=== PATIENT | male | born 1945 | race Caucasian/White ===

== ENCOUNTER 2018-11-29 00:53 | Outpatient (CLI) | payer OTHER, SELFPAY ==
[2018-11-29 11:43] LABS: Iron 86 ug/dL (50-175)
[2018-11-29 11:51] LABS: HCT 50.1 % (40.0-50.0); HGB 16.9 g/dL (13.5-17.5); Mean Corp. HGB Concentration 33.7 g/dL (32.0-36.0); Mean Corpuscular Hemoglobin 29.5 pg (27.0-33.0); Mean Corpuscular Volume 87.4 fL (80-95); Mean Platelet Volume 9.9 fL (8.0-11.0); Platelet Count 197 x1000/uL (130-400); RBC 5.73 m/cumm (4.50-6.00); RBC Distribution Width 13.7 % (11.8-14.1); White Blood Cell Count 4.48 k/cumm (4.4-10.8)
[2018-11-29 11:58] LABS: ALT 42 U/L (12-78); AST 20 U/L (15-37); Albumin 3.7 g/dL (3.4-5.0); Alkaline Phosphatase 68 U/L (46-116); Anion Gap 7.6 mmol/L (3-11); BUN 16 mg/dL (7-18); Bilirubin, Total 0.7 mg/dL (0.2-1.0); CO2 29.4 mmol/L (21.0-32.0); CREATININE 1.24 mg/dL (0.70-1.30); Calcium 9.5 mg/dL (8.5-10.1); Chloride 104 mmol/L (98-107); Cholesterol 198 mg/dL (50-200); Estimated GFR 57.47 (mL/min/1.73m2); Ferritin 54 ng/mL (8-388); Glucose 94 mg/dL (70-100); HDL Cholesterol 53 mg/dL (40-60); LDL CHOLESTEROL 128 mg/dL (<100); Potassium 4.3 mmol/L (3.5-5.1); Sodium 141 mmol/L (136-145); Total Protein 7.1 g/dL (6.4-8.2); Triglyceride 87 mg/dL (30-150)
== END 2018-11-29 01:13 ==
PROVIDERS: PCP Family Medicine; Visit Provider Family Medicine
DX: E61.1 Iron deficiency (principal); I10 Essential (primary) hypertension; E78.5 Hyperlipidemia, unspecified
CPT/HCPCS: 36415; 80053; 80061; 83721; 85027; 82728; 83540

== ENCOUNTER 2019-05-26 08:55 | Outpatient (CLI) | payer OTHER, SELFPAY ==
[2019-05-26 11:08] LABS: HCT 43.4 % (40.0-50.0); HGB 14.1 g/dL (13.5-17.5); Mean Corp. HGB Concentration 32.5 g/dL (32.0-36.0); Mean Corpuscular Hemoglobin 26.2 pg (27.0-33.0); Mean Corpuscular Volume 80.5 fL (80-95); Mean Platelet Volume 9.5 fL (8.0-11.0); Platelet Count 260 x1000/uL (130-400); RBC 5.39 m/cumm (4.50-6.00); White Blood Cell Count 4.59 k/cumm (4.4-10.8)
[2019-05-26 12:40] LABS: Iron 64 ug/dL (50-175)
== END 2019-05-26 09:15 ==
PROVIDERS: PCP Family Medicine; Visit Provider Family Medicine
DX: I10 Essential (primary) hypertension (principal); E61.1 Iron deficiency
CPT/HCPCS: 36415; 85027; 83540

== ENCOUNTER 2020-06-21 20:54 | Outpatient (REF) | payer OTHER, SELFPAY ==
[2020-06-21 21:44] LABS: ALT 27 U/L (16-63); AST 18 U/L (15-37); Albumin 3.9 g/dL (3.4-5.0); Alkaline Phosphatase 68 U/L (46-116); Anion Gap 10.3 mmol/L (3-11); BUN 24 mg/dL (7-18); Bilirubin, Total 0.3 mg/dL (0.2-1.0); CO2 23.7 mmol/L (21.0-32.0); Calcium 9.1 mg/dL (8.5-10.1); Calculated LDL 111 mg/dL (<100); Chloride 104 mmol/L (98-107); Cholesterol 181 mg/dL (<200); Glucose 88 mg/dL (74-106); HDL Cholesterol 55 mg/dL (40-60); Potassium 4.5 mmol/L (3.5-5.1); Sodium 138 mmol/L (136-145); Total Protein 7.2 g/dL (6.4-8.2); Triglyceride 79 mg/dL (<150)
[2020-06-23 09:31] LABS: PSA, Diagnostic 0.3 ng/mL (0.0-6.5)
== END 2020-06-21 21:14 ==
LOC: LBN 20:54
PROVIDERS: PCP Family Medicine; Visit Provider Family Medicine
DX: E78.5 Hyperlipidemia, unspecified (principal); I10 Essential (primary) hypertension; N40.0 Benign prostatic hyperplasia without lower urinary tract symptoms
CPT/HCPCS: 80053; 80061; 84153

== ENCOUNTER 2020-12-18 10:49 | Emergency (ER) | payer OTHER, SELFPAY ==
[2020-12-18 10:54] VITALS: BP 150/85; PULSE 68; RESP 18; TEMP 36.7; O2SAT 98
--- NOTE | 2020-12-18 11:08 | ED.GENADUL_ITS ---
Discharge Plan Disposition Patient Disposition: HOME Condition: Stable Discharge Details Clinical Impression: Degenerative arthritis of lumbar spine, Lumbosacral strain Primary Care Provider: Donna Mclaughlin ED Provider: Patricia Sanders Home Meds and New Rx's Prescriptions: New cyclobenzaprine 10 mg tablet 10 mg PO TID PRN (Reason: muscle spasm) Qty: 10 RF: 0 lidocaine 5 % adhesive patch,medicated 1 patch topical DAILY PRNQty: 15 RF: 0 Continued red yeast rice 600 MG capsule 1 cap PO DAILY RF: 0 Saw Palatine Extract (w-zinc) 1 EACH capsule 1 ea PO DAILY RF: 0 Glucos Chond Cplx Advanced 1 EACH tablet 1 ea PO DAILY RF: 0 sildenafil [Viagra] 100 MG tablet 100 mg PO DAILY Qty: 24 RF: 12 lisinopril 20 mg tablet 20 mg PO DAILY Qty: 90 RF: 12 omeprazole 40 mg capsule,delayed release(DR/EC) 40 mg PO DAILY Qty: 90 RF: 11 pravastatin [Pravachol] 40 mg tablet 40 mg PO DAILY Qty: 90 RF: 4 Discharge Instructions Instructions: Low Back Strain (ED) Additional Instructions: Follow up with primary care provider in 3-5 days. Return to ED sooner if any worsening or concerns. Increase oral fluids. Please take Tylenol or Ibuprofen with food every 4-6 hours as needed for pain and swelling. Alternate ice and heat, you may try lidocaine patches [id number] as needed. Take the muscle relaxer as directed. Try massage and or chiropractor. Referrals: Donna Mclaughlin MD, [place] [Primary Care Provider] - Medical Decision Making 75-year-old male presents to the ED with left sided lumbar pain. Patient states that he was shoveling some snow, supervisor opening and picking a bucket and twisted began with increased left-sided flank pain. He denies any problems urinating or burning with urination, no numbness or tingling no radiation of pain. Pain increases with standing. No midline T or L-spine tenderness with palpation, he does have some left-sided paraspinous muscle spasm and tenderness. No loss of bowel or bladder control no saddle anesthesia. FINDINGS: Bones/joints: Degenerative arthritis in the lumbar spine with narrowing of lumbar interspaces and endplate osteophyte formation. Degenerative arthritis in the lower lumbar facets. Slight anterolisthesis of L4 on L5. Slight retrolisthesis of L2 on L3. Soft tissues: Benign-appearing calcifications projecting over the left side of the abdomen. IMPRESSION: 1. Degenerative arthritis in the lumbar spine. Patient received Flexeril 10 mg p.o. while here in department and 5% lidocaine patch which he states improved his pain. Discussed x-ray results and urinalysis, verbalized understanding. Instructed to follow-up with PCP patient states he has an upcoming appoint but on Sunday and an upcoming chiropractic appointment following up thereafter. Encouraged to keep appointments. Discuss ed strict return instructions, verbalized understanding. Patient was given prescription for lidocaine patch and Flexeril. HPI General Mode of arrival: ambulatory . Date/Time Provider Initiated Documentation: 12/18/20 10:52 . Limitations to Documentation: no limitations . Information obtained by: patient . HPI Narrative: 75-year-old male presents to the ED with left sided lumbar pain. Patient states that he was shoveling some snow, supervisor opening and picking a bucket and twisted began with increased left-sided flank pain. He denies any problems urinating or burning with urination, no numbness or tingling no radiation of pain. Pain increases with standing. No midline T or L-spine tenderness with palpation, he does have some left-sided paraspinous muscle spasm and tenderness. No loss of bowel or bladder control no saddle anesthesia. Related Data Home Medications Medication Instructions Recorded Confirmed Glucos Chond Cplx Advanced 1 ea PO DAILY 04/01/13 12/18/20 Saw Palatine Extract (w-zinc) 1 ea PO DAILY 04/01/13 12/18/20 red yeast rice 1 cap PO DAILY 04/01/13 12/18/20 sildenafil [Viagra] 100 mg PO DAILY #24 tab-cap 11/05/17 12/18/20 lisinopril 20 mg tablet 20 mg PO DAILY #90 tab-cap 02/09/20 12/18/20 omeprazole 40 mg capsule,delayed 40 mg PO DAILY #90 tab-cap 02/09/20 12/18/20 release pravastatin 40 mg tablet 40 mg PO DAILY #90 tab-cap 02/09/20 12/18/20 cyclobenzaprine 10 mg PO TID PRN #10 tab 12/18/20 lidocaine 1 patch TOPICAL DAILY PRN #15 ea 12/18/20 Previous Rx's Medication Instructions Recorded sildenafil [Viagra] 100 mg PO DAILY #24 tab-cap 11/05/17 lisinopril 20 mg tablet 20 mg PO DAILY #90 tab-cap 02/09/20 omeprazole 40 mg capsule,delayed 40 mg PO DAILY #90 tab-cap 02/09/20 release pravastatin 40 mg tablet 40 mg PO DAILY #90 tab-cap 02/09/20 cyclobenzaprine 10 mg PO TID PRN #10 tab 12/18/20 lidocaine 1 patch TOPICAL DAILY PRN #15 ea 12/18/20 Allergies Allergy/AdvReac Type Severity Reaction Status Date / Time No Known Allergies Allergy Unverified 06/21/20 09:48 General Stated Complaint: Nk/Back Pain KODY: 4 Review of Systems Narrative: Constitutional: Negative for weight loss, alert and oriented, well groomed, normal body habitus, appears comfortable. HEENT: Denies trauma, headaches, blurry vision, nasal discharge, sore throat, trouble swallowing. Chest: Denies chest pain, palpitations, irregular rhythm, hypertension. Respiratory: Denies Shortness of breath, cough, hemoptysis. GI: Denies abdominal pain, nausea, vomiting, diarrhea, constipation. : Denies dysuria, hematuria, flank pain, rectal bleeding. Neuro: Denies dizziness, blurry vision, weakness, syncope, headache or facial numbness. Hematologic: Denies easy bruising, intolerance to heat or cold, hair loss. 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 colonoscopy; 01/22- heme + stool; NEG. STOOL CARDS (3) RETURNED; 01/2008-heme + stool;neg. stool cards Occult blood in stools Peptic ulcer 04/06/14 in his 's EGD-neg 08/31 Peptic ulcer (04/06/14) Smoker quit in 1979 Smoker Surgical History Arthroplasty 03/06/16; RIGHT KNEE; [facility] Arthroscopy (~1995) LEFT WRIST H/O arthroscopy 11/19/95 left wrist H/O knee surgery x 3 History of arthroscopy History of knee surgery KNEE REPAIR X 3 Replacement of total knee joint (04/22/13) [facility]; LEFT KNEE S/P total knee replacement 11/19/12 [facility]; left knee-2012; [facility]-right knee 02/2016 S/P vasectomy 04/19/15 Status post total knee replacement Status post vasectomy (04/19/15) Vasectomy Family History Mother , AGE 90 Dementia Glaucoma Father , AGE 90 Essential hypertension Hyperlipidemia DJD (degenerative joint disease) HIP Liver failure DIALYSIS Alcohol abuse Maternal Grandmother Cancer Paternal Grandfather No problems noted. Paternal Grandmother No problems noted. Son No problems noted. Son No problems noted. Son No problems noted. Social History Smoking/Tobacco Use Status: Former Tobacco Use Quit Date: 11/19/79 Tobacco: How many years used: 16 Smoking risk assessment performed?: Yes Alcohol Intake: current Alcohol Intake frequency: 0-2 drinks per day Alcohol type: beer, wine and hard liquor Drug use: Rarely Substance use type: marijuana Caregiver/Support person: No Household members: spouse Communication Needs: Hard of Hearing Pets and animals: Yes Pets and animals: dog(s), horse(s) and farm animals Sexually active: Yes Do you think of yourself as: straight/heterosexual What is your relationship status?: How often do you talk on the phone with friends or family?: three or more times per week How often do you get together with friends or relatives?: twice per week Panel score (0-1 are the most socially isolated patients): 2 What type of physical activity do you participate in: bicycling and other Details: Golf, [place] Duration: 15-30 minutes/day Frequency: 3-4 times per week Riana/Synagogue: [employer] Special riana needs: No Seatbelt use: always Helmet use: Yes Do you feel safe at home: Yes Do you feel safe in your relationship?: Yes Exam Narrative Exam Narrative: Constitutional: Alert and oriented x3. Appears stated age. Normal body habitus. Head: Normocephalic, no trauma. Eyes: Pupils PERRLA, Red reflex noted, EOM's intact. Eyelids symmetrical without lesions, discharge, or swelling. ENT: Bilateral TM's WNL, External ear normal to inspection, no mastoid TTP, swelling, or erythema, Nasal turbinates WNL, no nasal discharge. Normal dentition, Posterior pharynx WNL, no exudate. Chest: RRR, Normal S1, S2, distal pulses intact. Resp: Lungs clear to auscultation bilaterally, no wheezes, rales, or rhonchi. Abdomen: Soft, nontender to palpation all four quadrants. Musculoskeletal: Normal gait, 5/5 strength to all four extremities. Negative straight leg test, no midline C, T, L-spine tenderness no crepitus no step-off noted with palpation. Does have some left paraspinous tenderness and spasm of muscle. No CVA tenderness. Skin: No suspicious rashes or lesions. Capillary refill less than 2 sec. Neurologic: Cranial nerves II-XII intact. Alert and oriented x 3. DTR's intact. Hematologic/Lymphatic: No ecchymosis, no lymphadenopathy. Course Vital Signs Vital signs: Vital Signs Temperature 36.7 C 12/18/20 10:54 Pulse 68 12/18/20 10:54 Respiratory Rate 18 12/18/20 10:54 Blood Pressure 150/85 H 12/18/20 10:54 Pulse Oximetry 98 12/18/20 10:54 Temperature 36.7 C 12/18/20 10:54 Temperature Source Skin 12/18/20 10:54 Pulse 68 12/18/20 10:54 Respiratory Rate 18 12/18/20 10:54 Respiratory Effort Non-Labored 12/18/20 11:02 Blood Pressure 150/85 H 12/18/20 10:54 Blood Pressure Position Sitting 12/18/20 10:54 Pulse Oximetry 98 12/18/20 10:54 Oxygen Delivery Method Room Air 12/18/20 10:54 Oxygen Flow Rate 0 12/18/20 10:54 Pain Level 10 12/18/20 11:02
[2020-12-18] MEDS: Cyclobenzaprine 10 MG TAB PO (11:16)
[2020-12-18 11:23] LABS: Bilirubin Negative (Negative); Blood Negative (Negative); Clarity Clear (Clear); Glucose Negative (Negative); Ketones Negative (Negative); Leukocyte Esterase Negative (Negative); Nitrite Negative (Negative); Specific Gravity >= 1.030 (1.005-1.025); Urobilinogen 0.2 EU/dL (Up TO 0.2); pH 5.5 (5-8)
--- NOTE | 2020-12-18 11:30 | DI.RAD_ITS ---
EXAM: XR LUMBAR SPINE COMPLETE CLINICAL HISTORY: Back pain. TECHNIQUE: 2D digital imaging was performed. COMPARISON: No exams were available for comparison FINDINGS: Is no evidence of fracture, spondylolysis or spondylolisthesis. There are degenerative disc changes and facet degenerative changes. There is no significant scoliosis. The hip joints and SI joints are unremarkable. IMPRESSION: Degenerative disc and facet joint changes. DATA REPOSITORY: RADIATION DOSE DELIVERED:
[2020-12-18] MEDS: Lidocaine 5% Patch 1 PATCH TP (11:40)
--- NOTE | 2020-12-18 12:03 | DI.VRAD_ITS ---
PROCEDURE INFORMATION: Exam: XR Lumbosacral Spine, 4 or 5 Views Exam date and time: 12/18/2020 11:55 AM Age: 75 years old Clinical indication: Other: Lbp TECHNIQUE: Imaging protocol: XR of the lumbosacral spine, 4 or 5 views. COMPARISON: No relevant prior studies available. FINDINGS: Bones/joints: Degenerative arthritis in the lumbar spine with narrowing of lumbar interspaces and endplate osteophyte formation. Degenerative arthritis in the lower lumbar facets. Slight anterolisthesis of L4 on L5. Slight retrolisthesis of L2 on L3. Soft tissues: Benign-appearing calcifications projecting over the left side of the abdomen. IMPRESSION: 1. Degenerative arthritis in the lumbar spine. Dictated and Authenticated by: Nadege Case MD. Ordering:ALIZE Gomez MD
== END 2020-12-18 12:30 | disposition home or self-care (01) ==
PROVIDERS: Emergency Provider Registered Nurse Emergency; PCP Family Medicine
DX: S39.012A Strain of muscle, fascia and tendon of lower back, initial encounter (principal); X50.0XXA Overexertion from strenuous movement or load, initial encounter; M47.896 Other spondylosis, lumbar region
CPT/HCPCS: 99283; 72110; 81003

== ENCOUNTER 2021-08-09 20:44 | Outpatient (REF) | payer OTHER, SELFPAY ==
[2021-08-09 22:44] LABS: ALT 35 U/L (16-63); AST 22 U/L (15-37); Albumin 4.4 g/dL (3.4-5.0); Alkaline Phosphatase 72 U/L (46-116); Anion Gap 8.9 mmol/L (3-11); BUN 18 mg/dL (7-18); Bilirubin, Total 0.5 mg/dL (0.2-1.0); CO2 29.1 mmol/L (21.0-32.0); CREATININE 1.2 mg/dL (0.70-1.30); Calcium 9.3 mg/dL (8.5-10.1); Calculated LDL 133 mg/dL (<100); Chloride 102 mmol/L (98-107); Cholesterol 221 mg/dL (<200); Estimated GFR 59.35 (mL/min/1.73m2); Glucose 114 mg/dL (74-106); HDL Cholesterol 56 mg/dL (40-60); Potassium 4.5 mmol/L (3.5-5.1); Sodium 140 mmol/L (136-145); Total Protein 8.1 g/dL (6.4-8.2); Triglyceride 164 mg/dL (<150)
[2021-08-10 17:04] LABS: PSA, Diagnostic 0.6 ng/mL (0.0-6.5)
== END 2021-08-09 20:45 | disposition home or self-care (01) ==
LOC: LBN 20:44
PROVIDERS: PCP Family Medicine; Visit Provider Family Medicine
DX: I10 Essential (primary) hypertension (principal); E78.5 Hyperlipidemia, unspecified; N40.0 Benign prostatic hyperplasia without lower urinary tract symptoms
CPT/HCPCS: 80053; 80061; 84153

== ENCOUNTER 2022-03-21 01:54 | Outpatient (CLI) | payer MEDICARE, SELFPAY ==
[2022-03-21 12:23] LABS: HCT 39.6 % (40.0-50.0); HGB 11.3 g/dL (13.5-17.5); MCHC 28.5 % (32.0-36.0); MCV 70 fL (80-95); MPV 9.3 fL (8.0-11.0); Platelet Count 295 10^3/uL (130-400); RBC 5.65 10^6/uL (4.36-5.78); RDW 21.4 % (11.8-14.1); RDW-SD 52.1 fL; WBC 4.27 10^3/uL (4.4-10.8)
[2022-03-21 12:31] LABS: Iron 22 ug/dL (65-175)
[2022-03-21 12:43] LABS: Ferritin 9 ng/mL (26-388)
== END 2022-03-21 01:55 | disposition home or self-care (01) ==
LOC: LOS 01:54
PROVIDERS: PCP Family Medicine; Visit Provider Family Medicine
DX: D64.9 Anemia, unspecified (principal); E61.1 Iron deficiency
CPT/HCPCS: 36415; 85027; 82728; 83540

== ENCOUNTER 2022-04-21 06:08 | Emergency (ER) | payer MEDICARE, SELFPAY ==
--- NOTE | 2022-04-21 06:00 | DI.CT_ITS ---
Exam(s) CT RENAL COLIC WO EXAM: CT RENAL COLIC WO CLINICAL HISTORY: left flank pain, r/o stone. TECHNIQUE: Imaging Protocol: Axial computed tomography images with coronal and sagittal reformatted images were created and reviewed. COMPARISON: No prior for comparison. FINDINGS: ABDOMEN: Lung Bases: There is dependent atelectasis. There is a 6.3 mm noncalcified pulmonary nodule in the r ight lower lobe. Liver: Normal density. There is a 6.7 mm cyst in the right lobe of the liver. Gallbladder and biliary tract: No radiodense calculus or biliary ductal dilation. Pancreas: Normal density, no abnormal calcifications or inflammatory process. Spleen: Calcified granuloma are seen in the spleen. Kidneys: Normal size, contour and axis.There is bilateral nephrolithiasis. There is a 7 mm stone at the left ureteropelvic junction causing moderate hydronephrosis. Right renal cysts are present. The largest is in the superior pole and measures 3.3 cm. Adrenal glands: No mass is seen. Lymph nodes: Within normal limits. Abdominal Aorta: Abdominal portion non-dilated. Atherosclerosis is present. PELVIS: Bladder:Symmetric distention, no gross wall thickening. Bowel: No obstruction or bowel wall thickening. No evidence of appendicitis. Peritoneal cavity: No ascites, collection or mesenteric inflammatory response. No free air. Reproductive organs: Mild prostatic enlargement. Bones: Within normal limits. Soft Tissues: Within normal limits. IMPRESSION: 1. 7 mm left UVJ stone causing moderate hydronephrosis. 2. Bilateral nephrolithiasis. RADIATION DOSE DELIVERED: 736.9mGy.cm Total DLP DATA REPOSITORY: All CT scans at this facility are submitted to the National Radiology Data Registry (NRDR) Dose Index Registry (DIR) with the [employer] (A[employer]). RADIATION OPTIMIZATION: All CT scans at this facility use at least one of these dose optimization te chniques: automated exposure control; mA and/or kV adjustment per patient size (includes targeted exa ms where dose is matched to clinical indication); or iterative reconstruction.
[2022-04-21 06:03] VITALS: BP 157/73; PULSE 70; RESP 18; TEMP 36.5; O2SAT 95
[2022-04-21 06:09] VITALS: BP 157/73; PULSE 79; O2SAT 91
[2022-04-21 06:10] VITALS: O2SAT 91
--- NOTE | 2022-04-21 06:12 | ED.GENADUL_ITS ---
Discharge Plan Disposition Patient Disposition: HOME Condition: Good Discharge Details Clinical Impression: Kidney stone on left side Primary Care Provider: Donna Mclaughlin ED Provider: Alverto Zepeda Home Meds and New Rx's Prescriptions: New tamsulosin [Flomax] 0.4 mg capsule 0.4 mg PO DAILY Qty: 10 0RF cephalexin 500 mg capsule 500 mg PO QID 7 Days Qty: 28 0RF oxycodone 10 mg tablet 10 mg PO Q8H PRNQty: 14 0RF Continued cholecalciferol (vitamin D3) 25 mcg (1,000 unit) capsule 25 mcg PO DAILY olive leaf extract 250 mg capsule See Rx Instructions PO DAILY Rx Instructions: 250mg daily PO daily; lisinopril 20 mg tablet 20 mg PO DAILY Qty: 90 12RF pravastatin 40 mg tablet 40 mg PO DAILY Qty: 90 4RF red yeast rice 600 MG capsule 1 cap PO DAILY Saw [place] Extract (w-zinc) 1 EACH capsule 1 ea PO DAILY Glucos Chond Cplx Advanced 1 EACH tablet 1 ea PO DAILY omeprazole 40 mg capsule,delayed release(DR/EC) See Rx Instructions .ROUTE .COMPLEX Qty: 90 3RF Dose Instruction: TAKE 1 CAPSULE DAILY Rx Instructions: TAKE 1 CAPSULE DAILY sildenafil 100 mg tablet See Rx Instructions .ROUTE .COMPLEX Qty: 24 5RF Dose Instruction: TAKE 1 TABLET DAILY Rx Instructions: TAKE 1 TABLET DAILY lidocaine 5 % adhesive patch,medicated 1 patch topical DAILY PRNQty: 15 0RF Rx Instructions: leave on most painful area for up to 12 hrs Discharge Instructions Instructions: Kidney Stones (ED) Additional Instructions: At this time you have evidence of a kidney stone. Unfortunately due to its size it will most likely need a stent to be removed. Dr. Carrillo's office will contact you for the surgical date. This will likely be Sunday of next week. In the meantime please take the Flomax to help with the passage of the stone. Please take Tylenol and Motrin as needed as well. You can take 800 mg of Motrin every 6 hours and 1000 mg of Tylenol every 6 hours. These are the maximum doses for these medications. You can take the narcotic oxycodone as needed for breakthrough pain. Out of an abundance of precaution we are putting you on an antibiotic to prevent infection. Please take the Keflex as directed. If you notice any worsening of your symptoms, or any new symptoms such as vomiting, diarrhea, fever, chills, shortness of breath, chest pain, numbness, weakness, or fainting , please return immediately to the emergency department for reevaluation. Please follow up with your primary care provider as soon as possible for reassessment and reevaluation. As always, it was a pleasure participating in your medical care today. Referrals: Rafi Carrillo MD [[facility] STAFF PHYSICIAN] - Donna Mclaughlin MD, [place] [Primary Care Provider] - Medical Decision Making This is a very pleasant 76-year-old male with a past medical history of BPH, previous kidney stone, high cholesterol, who presents today for evaluation of left-sided flank pain. Patient states that for the last week he has been having mild on and off left flank pain which was radiating from the flank slightly more anteriorly. He denies any urinary changes, he states that early this morning he was awoken out of sleep with left flank pain. Feels like his previous kidney stones. He had an episode of vomiting and diarrhea because of it. He denies chest pain or shortness of breath. He denies any numbness or tingling. He did take an old [place] which did not change his symptoms much. Contacted EMS, they brought him for further evaluation to the ER. He received 1 L of normal saline in route, and 200 mics of fentanyl. Currently the patient is feeling much better. No other complaints at this time. No other modifying factors. Physical exam demonstrates a nonsurgical abdomen, no significant CVA tenderness. Genital exam is unremarkable, no genital tenderness. Concern is highest for kidney stone. We will give Toradol, Flomax, get a CT renal study, monitor closely and reassess. 7:41 AM Laboratory work-up demonstrates no significant white count. Electrolytes stable, renal function is excellent. Urinalysis shows small amount of blood, minimal WBCs, trace leuk esterase, negative nitrates. Symptoms are notably clinically inconsistent for a septic stone or significant infection. Upon my review of the CT image the stone appears to be 1 cm long and on 7 to 8 mm wide. This will likely eventually need stenting. I did contact Dr. Carrillo and discussed the case with him. He agrees with potential need for further intervention at a later date on a nonemergent basis. We will contact the patient to schedule this. In the meantime out of an abundance of precaution he does recommend antibiotics to prevent infection. We will give a dose of ceftriaxone here, and Keflex for home use. Will give pain medications, Flomax, and NSAID recommendation for home. Discussed with the patient the importance of current promptly if his symptoms return or worsen. I have extensively reviewed the treatment plan and discharge instructions with the patient. I have addressed all patient concerns at this time. The patient was made aware of what symptoms to monitor for that would warrant a return to the emergency department. Discussed the plan with the patient, they demonstrate verbal understanding and agreement with our assessment and plan at this time. The documentation in this chart was dictated using Status[employer] dictation software. Please excuse any dictation errors. HPI General Date/Time Provider Initiated Documentation: 04/21/22 06:12 . HPI Narrative: This is a very pleasant 76-year-old male with a past medical history of BPH, previous kidney stone, high cholesterol, who presents today for evaluation of left-sided flank pain. Patient states that for the last week he has been having mild on and off left flank pain which was radiating from the flank slightly more anteriorly. He denies any urinary changes, he states that early this morning he was awoken out of sleep with left flank pain. Feels like his previous kidney stones. He had an episode of vomiting and diarrhea because of it. He denies chest pain or shortness of breath. He denies any numbness or tingling. He did take an old [place] which did not change his symptoms much. Contacted EMS, they brought him for further evaluation to the ER. He received 1 L of normal saline in route, and 200 mics of fentanyl. Currently the patient is feeling much better. No other complaints at this time. No other modifying factors. Related Data Home Medications Medication Instructions Recorded Confirmed [id number] 1 ea PO DAILY 04/01/13 04/21/22 750 mg-100 mg-125 mg-1.65 mg tablet (Glucosamine Chondroit Complx Advan) red yeast rice 600 mg capsule 1 cap PO DAILY 04/01/13 04/21/22 saw palmetto fruit extract-zinc 1 ea PO DAILY 04/01/13 04/21/22 picolinate 160 mg-15 mg capsule (Saw [place] Extract (with zinc)) lidocaine 5 % topical patch 1 patch topical DAILY PRN #15 ea 12/18/20 04/21/22 cholecalciferol (vitamin D3) 25 25 mcg PO DAILY 08/09/21 04/21/22 mcg (1,000 unit) capsule olive leaf extract 250 mg capsule See Rx Instructions PO DAILY 08/09/21 04/21/22 omeprazole 40 mg capsule,delayed See Rx Instructions .Route 01/02/22 04/21/22 release .COMPLEX #90 caps sildenafil 100 mg tablet See Rx Instructions .Route 01/02/22 04/21/22 .COMPLEX #24 tabs lisinopril 20 mg tablet 20 mg PO DAILY #90 tab-caps 02/07/22 04/21/22 pravastatin 40 mg tablet 40 mg PO DAILY #90 tab-caps 02/07/22 04/21/22 cephalexin 500 mg capsule 500 mg PO QID 7 days #28 caps 04/21/22 oxycodone 10 mg tablet 10 mg PO Q8H PRN #14 tabs 04/21/22 tamsulosin 0.4 mg capsule (Flomax) 0.4 mg PO DAILY #10 caps 04/21/22 Previous Rx's Medication Instructions Recorded lidocaine 5 % topical patch 1 patch topical DAILY PRN #15 ea 12/18/20 omeprazole 40 mg capsule,delayed See Rx Instructions .Route 01/02/22 release .COMPLEX #90 caps sildenafil 100 mg tablet See Rx Instructions .Route 01/02/22 .COMPLEX #24 tabs lisinopril 20 mg tablet 20 mg PO DAILY #90 tab-caps 02/07/22 pravastatin 40 mg tablet 40 mg PO DAILY #90 tab-caps 02/07/22 cephalexin 500 mg capsule 500 mg PO QID 7 days #28 caps 04/21/22 oxycodone 10 mg tablet 10 mg PO Q8H PRN #14 tabs 04/21/22 tamsulosin 0.4 mg capsule (Flomax) 0.4 mg PO DAILY #10 caps 04/21/22 Allergies Allergy/AdvReac Type Severity Reaction Status Date / Time No Known Allergies Allergy Unverified 04/21/22 06:07 General Stated Complaint: FlankPain KODY: 3 Review of Systems All systems reviewed & are unremarkable except as noted in HPI and below PFSH All Active Problems (Updated 04/21/22 @ 07:34 by Alverto R Hearne, DO) Kidney stone on left side (Acute) Anemia (Chronic) Upper extremity pain (Acute) BPH (benign prostatic hyperplasia) (Chronic) Physician orders for life-sustaining treatment (POLST) form indicates patient wish for [id number]-pzielwsuzbo status (Acute) BPH (benign prostatic hyperplasia) (Chronic) Diverticulosis of colon without diverticulitis (Chronic) ED (erectile dysfunction) (Chronic) Essential hypertension (Chronic) Hemorrhoids (Chronic) Hyperlipidemia (Chronic 04/02/13) 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 colonoscopy; 01/22- heme + stool; NEG. STOOL CARDS (3) RETURNED; 01/2008-heme + stool;neg. stool cards Occult blood in stools Peptic ulcer 04/06/14 in his 's EGD-neg 08/31 Peptic ulcer (04/06/14) Smoker quit in 1979 Smoker Surgical History Arthroplasty 03/06/16; RIGHT KNEE; [facility] Arthroscopy (~1995) LEFT WRIST H/O arthroscopy 11/19/95 left wrist H/O knee surgery x 3 History of arthroscopy History of knee surgery KNEE REPAIR X 3 Replacement of total knee joint (04/22/13) [facility]; LEFT KNEE S/P total knee replacement 11/19/12 [facility]; left knee-2012; [facility]-right knee 02/2016 S/P vasectomy 04/19/15 Status post total knee replacement Status post vasectomy (04/19/15) Vasectomy Family History Mother , AGE 90 Dementia Glaucoma Father , AGE 90 Essential hypertension Hyperlipidemia DJD (degenerative joint disease) HIP Liver failure DIALYSIS Alcohol abuse Maternal Grandmother Cancer Paternal Grandfather No problems noted. Paternal Grandmother No problems noted. Son No problems noted. Son No problems noted. Son No problems noted. Social History Smoking/Tobacco Use Status: Former Tobacco Use tobacco type: cigarettes Quit Date: 11/19/79 Tobacco: How many years used: 16 Second Hand Exposure: Yes Smoking risk assessment performed?: Yes Alcohol Intake: current Alcohol Intake frequency: a few times a week Alcohol type: beer and hard liquor Drug use: Rarely Substance use type: marijuana Caregiver/Support person: No Household members: spouse Do you need help understanding health information?: Rarely Pets and animals: Yes Pets and animals: dog(s), horse(s) and farm animals Sexually active: Yes Do you think of yourself as: straight/heterosexual Current gender identity: male What is your relationship status?: How often do you talk on the phone with friends or family?: three or more times per week How often do you get together with friends or relatives?: once per week Do you belong to any clubs or organized social groups?: yes Panel score (0-1 are the most socially isolated patients): 3 What type of physical activity do you participate in: walking and bicycling Duration: 15-30 minutes/day Frequency: 1-2 times per week Riana/Christian: No preference Special riana needs: No Seatbelt use: always Helmet use: Yes Drive intox or ride w/intox sprinkling truck driver: No Do you feel safe at home: Yes Do you feel safe in your relationship?: Yes Exam Narrative Exam Narrative: 1.Const: Well-nourished, Well-developed, appearing stated age 2.Eyes: PERRL, no conjunctival injection, and symmetrical lids. 3.ENT: Atraumatic external nose and ears. Moist MM. Neck: Symmetric, trachea midline, No thyromegaly. 4.CVS: +S1/S2, No murmurs or gallops. Peripheral pulses 2+ and equal in all extremities. Brisk capillary refill in all extremities. 5.RESP: Unlabored respiratory effort. Clear to auscultation bilaterally. No wheezes rales or rhonchi 6.GI: Soft, Nontender/Nondistended, No hepatosplenomegaly. No guarding or rebound. 7.MSK: Normocephalic/Atraumatic, Extremities w/o deformity or ttp No cyanosis or clubbing, Normal movement of all extremities 8.Skin: Warm, Dry. No rashes or lesions. 9.Neuro: youth agent II-XII grossly intact. Sensation grossly intact, no focal neurologic deficits. 10.Psych: (AAO) x3. Appropriate mood and affect Course Vital Signs Vital signs: Vital Signs Temperature 36.5 C 04/21/22 06:03 Pulse 70 04/21/22 06:03 Respiratory Rate 18 04/21/22 06:03 Blood Pressure 157/73 H 04/21/22 06:03 Pulse Oximetry 95 04/21/22 06:03 Temperature 36.5 C 04/21/22 06:03 Pulse 70 04/21/22 06:03 Respiratory Rate 18 04/21/22 06:03 Respiratory Effort Non-Labored 04/21/22 06:08 Blood Pressure 157/73 H 04/21/22 06:03 Pulse Oximetry 95 04/21/22 06:03 Pain Level 4 04/21/22 06:03 PAWSS Have you Been Recently Intoxicated or Drunk Within the Last 30 days?: No Have you Ever Experienced Previous Episodes of Alcohol Withdrawal?: No Have you ever Experienced Withdrawal Seizures?: No Have you ever Experienced Delirium Tremens(DT)s?: No Have you ever undergone Alcohol Rehabilitation Treatment (i.e, inpt ot outpatient treatment programs)?: No Have you ever Experienced Blackouts?: No Have you ever Combined Alcohol with other Downers within the last 90 days?: No Have you ever Combined Alcohol with any other Substance of Abuse during the last 90 days?: No Positive Blood Alcohol level on Presentation? [PCS.BAL]: No Evidence of Increased Autonomic Activity (i.e. HR>120, tremor, sweating, agitation, nausea)?: No Result: 0
[2022-04-21 06:16] VITALS: BP 131/75; PULSE 75; O2SAT 90
[2022-04-21 06:20] VITALS: O2SAT 91
[2022-04-21] MEDS: Tamsulosin 0.4 MG CAPCR PO (06:23)
[2022-04-21] MEDS: Ketorolac 15 MG/ML VIAL IVP (06:23)
[2022-04-21] MEDS: Normal Saline 500 ML IV (06:23)
[2022-04-21 06:34] LABS: Abs Immature Grans 0.02 10^3/uL (0.0-0.06); Absolute Basophil Count 0.04 10^3/uL (0.0-0.2); Absolute Eosinophil Count 0.02 10^3/uL (0.0-0.7); Absolute Lymphocyte Count 0.49 10^3/uL (1.2-3.4); Absolute Monocyte Count 0.11 10^3/uL (0.1-0.8); Absolute Neutrophil Count 6.37 10^3/uL (1.2-6.7); Basophils % 0.6; Eosinophils % 0.3; HCT 41.9 % (40.0-50.0); HGB 12.4 g/dL (13.5-17.5); Immature Grans % 0.3; MCH 21.8 pg (27.0-33.0); MCHC 29.6 % (32.0-36.0); MCV 74 fL (80-95); MPV 8.9 fL (8.0-11.0); Monocytes % 1.6; Neutrophils % 90.2; Platelet Count 234 10^3/uL (130-400); RBC 5.69 10^6/uL (4.36-5.78); RDW 23.8 % (11.8-14.1); RDW-SD 61.1 fL; WBC 7.05 10^3/uL (4.4-10.8)
[2022-04-21 06:35] LABS: Bilirubin Negative (Negative); Blood Small (Negative); Clarity Clear (Clear); Glucose Negative (Negative); Ketones Negative (Negative); Leukocyte Esterase Trace (Negative); Nitrite Negative (Negative); Urobilinogen 0.2 EU/dL (Up TO 0.2)
[2022-04-21 06:42] LABS: Epithelial Cells Rare HPF (Negative)
[2022-04-21 06:43] LABS: Bacteria Rare HPF (Negative); C & S Indicated? Yes; Casts Negative LPF (Negative); Crystals Negative HPF (Negative); Mucus Trace (Negative)
[2022-04-21 06:50] LABS: ALT 26 U/L (16-63); AST 17 U/L (15-37); Albumin 3.5 g/dL (3.4-5.0); Alkaline Phosphatase 73 U/L (46-116); Anion Gap 6.7 mmol/L (3-11); BUN 18 mg/dL (7-18); Bilirubin, Total 0.3 mg/dL (0.2-1.0); CO2 27.3 mmol/L (21.0-32.0); CREATININE 1.1 mg/dL (0.70-1.30); Calcium 8.5 mg/dL (8.5-10.1); Chloride 105 mmol/L (98-107); Glucose 156 mg/dL (74-106); Potassium 3.9 mmol/L (3.5-5.1); Sodium 139 mmol/L (136-145); Total Protein 6.9 g/dL (6.4-8.2)
[2022-04-21] MEDS: cefTRIAXone 2 GM/50 ML BAG IVPB (07:53)
--- NOTE | 2022-04-21 08:05 | DI.VRAD_ITS ---
PROCEDURE INFORMATION: Exam: CT Abdomen And Pelvis Without Contrast Exam date and time: 04/21/2022 6:50 AM Age: 76 years old Clinical indication: Abdominal pain; Flank; Left; Additional info: Left flank pain, R/O stone TECHNIQUE: Imaging protocol: Computed tomography of the abdomen and pelvis without contrast. Radiation optimization: All CT scans at this facility use at least one of these dose optimization techniques: automated exposure control; mA and/or kV adjustment per patient size (includes targeted exams where dose is matched to clinical indication); or iterative reconstruction. COMPARISON: CR XR LUMBAR SPINE COMPLETE 12/18/2020 11:49 AM FINDINGS: Lungs: Bibasilar atelectasis. Liver: Right hepatic lobe hypodensity, too small to characterize (series 2, image 32). Gallbladder and bile ducts: Normal. No calcified stones. No ductal dilation. Pancreas: Normal. No ductal dilation. Spleen: Normal. No splenomegaly. Adrenal glands: Normal. No mass. Kidneys and ureters: Exophytic right simple renal cyst superior pole. Parapelvic cysts are present on the right. Bilateral nonobstructive nephrolithiasis. There is mild left-sided hydronephrosis related to a 7 mm stone within the proximal left ureter. Stomach and bowel: Unremarkable. No obstruction. No mucosal thickening. Appendix: No evidence of appendicitis. Intraperitoneal space: Unremarkable. No free air. No significant fluid collection. Vasculature: Unremarkable. No abdominal aortic aneurysm. Lymph nodes: Unremarkable. No enlarged lymph nodes. Urinary bladder: Unremarkable as visualized. Reproductive: Prostatomegaly with associated prostatic calcification. Bones/joints: Unremarkable. No acute fracture. Soft tissues: Unremarkable. IMPRESSION: 1. There is a 7 mm stone within the proximal left ureter with associated mild left-sided hydronephrosis. 2. Bilateral nonobstructive nephrolithiasis. Dictated and Authenticated by: Viet Yan MD. Ordering:MISSY Del Toro MD
== END 2022-04-21 09:40 | disposition home or self-care (01) ==
LOC: ER 09:40
PROVIDERS: Emergency Provider Student in an Organized Health Care Education/Training Program; PCP Family Medicine
DX: N20.0 Calculus of kidney (principal); Z87.442 Personal history of urinary calculi
CPT/HCPCS: 80053; 96361; 96365; 99284; 74176; 81003; 81015; 85025; 87086; J1885

== ENCOUNTER 2022-04-23 08:20 | Emergency (ER) | payer MEDICARE, SELFPAY ==
[2022-04-23 08:22] VITALS: BP 147/75; PULSE 78; RESP 16; TEMP 37.4; O2SAT 91
--- NOTE | 2022-04-23 08:24 | ED.GENADUL_ITS ---
Discharge Plan Disposition Patient Disposition: HOME Condition: Improving Discharge Details Clinical Impression: Ureteral colic Primary Care Provider: Donna Mclaughlin ED Provider: Josiane Ledesma Home Meds and New Rx's Prescriptions: New ketorolac 10 mg tablet 10 mg PO Q6H 2 Days Qty: 8 0RF Continued cholecalciferol (vitamin D3) 25 mcg (1,000 unit) capsule 25 mcg PO DAILY olive leaf extract 250 mg capsule See Rx Instructions PO DAILY Rx Instructions: 250mg daily PO daily; lisinopril 20 mg tablet 20 mg PO DAILY Qty: 90 12RF pravastatin 40 mg tablet 40 mg PO DAILY Qty: 90 4RF red yeast rice 600 MG capsule 1 cap PO DAILY Saw [place] Extract (w-zinc) 1 EACH capsule 1 ea PO DAILY Glucos Chond Cplx Advanced 1 EACH tablet 1 ea PO DAILY omeprazole 40 mg capsule,delayed release(DR/EC) See Rx Instructions .ROUTE .COMPLEX Qty: 90 3RF Dose Instruction: TAKE 1 CAPSULE DAILY Rx Instructions: TAKE 1 CAPSULE DAILY sildenafil 100 mg tablet See Rx Instructions .ROUTE .COMPLEX Qty: 24 5RF Dose Instruction: TAKE 1 TABLET DAILY Rx Instructions: TAKE 1 TABLET DAILY lidocaine 5 % adhesive patch,medicated 1 patch topical DAILY PRNQty: 15 0RF Rx Instructions: leave on most painful area for up to 12 hrs tamsulosin [Flomax] 0.4 mg capsule 0.4 mg PO DAILY Qty: 10 0RF cephalexin 500 mg capsule 500 mg PO QID 7 Days Qty: 28 0RF oxycodone 10 mg tablet 10 mg PO Q8H PRNQty: 14 0RF Discharge Instructions Instructions: Kidney Stones (ED), How to Strain Your Urine (ED) Additional Instructions: Drink plenty of fluids and get plenty of rest. Continue your antibiotic and Flomax as directed. A prescription for Toradol was sent electronically to your pharmacy to take as directed for the next 2 days. Take the oxycodone for pain not relieved with Tylenol or Toradol. Call Dr. Carrillo's office tomorrow for follow up this week. Return immediately to the emergency department if you develop any worsening or new concerning symptoms such as fever, inability to urinate or worsening pain. Referrals: Rafi Carrillo MD [ [facility] STAFF PHYSICIAN] - Discharge Data Discharge Date/Time-TO BE ENTERED AT DEPARTURE: 04/23/22 10:41 Discharge Physician: Josiane Ledesma Medical Decision Making 0830 -- 76-year-old male with a history of GERD, hypertension, hyperlipidemia diagnosed with a 7 mm left UVJ kidney stone in the emergency department 2 days ago present persistent left flank pain over the last 2 days, worse for the past 3 hours. Pain improved after given fentanyl in route. He appears comfortable and nontoxic. Temp 99.3. His abdomen is soft and nontender. No CVA tenderness. CT from 04/21/22 noted a 7 mm left UVJ stone causing moderate hydronephrosis. We will hold on additional CT imaging at this time but will obtain screening labs, urinalysis and give IV fluids and IV Toradol and reassess. 1025 --labs reviewed. Normal white blood cell count. Normal electrolytes. Urinalysis notes 10-20 WBCs, 3-5 RBCs, rare bacteria and negative nitrate. He is currently on Keflex. Patient reassessed and he is completely pain-free. Attempted to reach out to Dr. Carrillo and voicemail left but no response. Patient states he would like to go home at this time. He is advised to continue his Keflex and Flomax and oxycodone as needed. He is requesting Toradol PO for home. We will send with a prescription for Toradol to take no longer than 2 days. Advised to call Dr. Carrillo's office tomorrow. Usual and customary return precautions given prior to discharge. Medical Records Medical records reviewed: Yes I reviewed the patient's medical records. Medical records narrative: 04/21/22 CT RENAL COLIC WO CLINICAL HISTORY: ? left flank pain, r/o stone.? TECHNIQUE:? Imaging Protocol: Axial computed tomography images with coronal and sagittal reformatted images were created and reviewed. COMPARISON:? No prior for comparison.? FINDINGS: ABDOMEN: Lung Bases: There is dependent atelectasis.? There is a 6.3 mm noncalcified pulmonary nodule in the right lower lobe.? Liver: Normal density. There is a 6.7 mm cyst in the right lobe of the liver.? Gallbladder and biliary tract: No radiodense calculus or biliary ductal dilation. Pancreas: Normal density, no abnormal calcifications or inflammatory process. Spleen: Calcified granuloma are seen in the spleen.? Kidneys: Normal size, contour and axis.There is bilateral nephrolithiasis.? There is a 7 mm stone at the left ureteropelvic junction causing moderate hydronephrosis.? Right renal cysts are present.? The largest is in the superior pole and measures 3.3 cm.? Adrenal glands: No mass is seen. Lymph nodes: Within normal limits.? Abdominal Aorta: Abdominal portion non-dilated. Atherosclerosis is present. PELVIS:? Bladder:Symmetric distention, no gross wall thickening. Bowel: No obstruction or bowel wall thickening. No evidence of appendicitis.? Peritoneal cavity: No ascites, collection or mesenteric inflammatory response.? No free air.? Reproductive organs: Mild prostatic enlargement.? Bones: Within normal limits. Soft Tissues: Within normal limits. IMPRESSION: 1. 7 mm left UVJ stone causing moderate hydronephrosis. 2. Bilateral nephrolithiasis.? Lab Data Lab results reviewed: Yes I reviewed the patient's lab results. Labs: 04/23/22 08:33 Urine - Reflex from Ua Urine Culture - Pending Laboratory Tests Range/Units 04/23/22 04/23/22 04/23/22 08:33 08:55 08:55 WBC (4.4-10.8) 10^3/uL 7.23 RBC (4.36-5.78) 10^6/uL 5.54 Hgb (13.5-17.5) g/dL 12.1 L Hct (40.0-50.0) % 40.8 MCV (80-95) fL 74 L MCH (27.0-33.0) pg 21.8 L MCHC (32.0-36.0) % 29.7 L RDW (11.8-14.1) % 24.1 H Plt Count (130-400) 10^3/uL 232 MPV (8.0-11.0) fL 8.9 Immature Gran % 0.3 Neutrophils % 80.2 Lymphocytes % 10.2 Monocytes % 6.8 Eosinophils % 1.9 Basophils % 0.6 Nucleated RBC % (0.0-0.3) % 0.0 Absolute Neutrophils (1.2-6.7) 10^3/uL 5.80 Absolute Lymphocytes (1.2-3.4) 10^3/uL 0.74 L Absolute Monocytes (0.1-0.8) 10^3/uL 0.49 Absolute Eosinophils (0.0-0.7) 10^3/uL 0.14 Absolute Basophils (0.0-0.2) 10^3/uL 0.04 RBC Morphology See Below Poikilocytosis 1+ Anisocytosis 3+ Microcytosis 2+ Sodium (136-145) mmol/L 140 Potassium (3.5-5.1) mmol/L 3.9 Chloride (98-107) mmol/L 106 Carbon Dioxide (21.0-32.0) mmol/L 26.4 Anion Gap (3-11) mmol/L 7.6 BUN (7-18) mg/dL 15 Creatinine (0.70-1.30) mg/dL 1.3 Estimated GFR/1.73 m2 (mL/min/1.73m2) 53.96 Glucose (74-106) mg/dL 107 H Calcium (8.5-10.1) mg/dL 8.8 Total Bilirubin (0.2-1.0) mg/dL 0.4 AST (15-37) U/L 13 L ALT (16-63) U/L 25 Alkaline Phosphatase (46-116) U/L 57 Total Protein (6.4-8.2) g/dL 6.9 Albumin (3.4-5.0) g/dL 3.3 L Urine Color (Yellow) Yellow Urine Clarity (Clear) Clear Urine pH (5-8) 5.5 Ur Specific [place] (1.005-1.025) 1.015 Urine Protein (Negative) mg/dL Negative Urine Ketones (Negative) mg/dL Negative Urine Blood (Negative) Moderate H Urine Nitrite (Negative) Negative Urine Bilirubin (Negative) Negative Urine Urobilinogen (Up TO 0.2) EU/dL 0.2 Ur Leukocyte Esterase (Negative) Small H Urine RBC (0-2) HPF 3-5 H Urine WBC (0-5) HPF 10-20 H Ur Epithelial Cells (Negative) HPF Negative Urine Crystals (Negative) HPF Negative Urine Bacteria (Negative) HPF Rare Urine Casts (Negative) LPF Negative Urine Mucus (Negative) Negative Ur Culture Indicated? Yes Urine Glucose (Negative) mg/dL Negative HPI General Mode of arrival: EMS . Date/Time Provider Initiated Documentation: 04/23/22 08:24 . Limitations to Documentation: no limitations . Information obtained by: patient . HPI Narrative: Patient is a 76-year-old male with a history of GERD, hypertension, hyperlipidemia diagnosed with kidney stone 10 days ago in the emergency department presents with persistent left flank pain, worse for the past 3 hours. Patient states the pain is intermittent, sharp and aching in his left flank with occasional radiation to his left lower quadrant. He admits to occasional nausea but denies any vomiting. He denies any fever, urinary symptoms or testic ular pain. He was given Flomax which she has been taking as directed until a dose this morning. He was given 200 mcg of fentanyl and Zofran IV in route and has some relief of his pain which is currently 3/10 and denies any nausea at present. Patient states when seen here 2 days ago and diagnosed with a kidney stone, his plan was for follow-up with Dr. Carrillo for possible stent placement on Sunday. Related Data Home Medications Medication Instructions Recorded Confirmed [id number] 1 ea PO DAILY 04/01/13 04/23/22 750 mg-100 mg-125 mg-1.65 mg tablet (Glucosamine Chondroit Complx Advan) red yeast rice 600 mg capsule 1 cap PO DAILY 04/01/13 04/23/22 saw [place] fruit extract-zinc 1 ea PO DAILY 04/01/13 04/23/22 picolinate 160 mg-15 mg capsule (Saw [place] Extract (with zinc)) lidocaine 5 % topical patch 1 patch topical DAILY PRN #15 ea 12/18/20 04/23/22 cholecalciferol (vitamin D3) 25 25 mcg PO DAILY 08/09/21 04/23/22 mcg (1,000 unit) capsule olive leaf extract 250 mg capsule See Rx Instructions PO DAILY 08/09/21 04/23/22 omeprazole 40 mg capsule,delayed See Rx Instructions .Route 01/02/22 04/23/22 release .COMPLEX #90 caps sildenafil 100 mg tablet See Rx Instructions .Route 01/02/22 04/23/22 .COMPLEX #24 tabs lisinopril 20 mg tablet 20 mg PO DAILY #90 tab-caps 02/07/22 04/23/22 pravastatin 40 mg tablet 40 mg PO DAILY #90 tab-caps 02/07/22 04/23/22 cephalexin 500 mg capsule 500 mg PO QID 7 days #28 caps 06/03/22 06/05/22 oxycodone 10 mg tablet 10 mg PO Q8H PRN #14 tabs 04/21/22 04/23/22 tamsulosin 0.4 mg capsule (Flomax) 0.4 mg PO DAILY #10 caps 04/21/22 04/23/22 ketorolac 10 mg tablet 10 mg PO Q6H 2 days #8 tabs 04/23/22 Previous Rx's Medication Instructions Recorded lidocaine 5 % topical patch 1 patch topical DAILY PRN #15 ea 12/18/20 omeprazole 40 mg capsule,delayed See Rx Instructions .Route 01/02/22 release .COMPLEX #90 caps sildenafil 100 mg tablet See Rx Instructions .Route 01/02/22 .COMPLEX #24 tabs lisinopril 20 mg tablet 20 mg PO DAILY #90 tab-caps 02/07/22 pravastatin 40 mg tablet 40 mg PO DAILY #90 tab-caps 02/07/22 cephalexin 500 mg capsule 500 mg PO QID 7 days #28 caps 04/21/22 oxycodone 10 mg tablet 10 mg PO Q8H PRN #14 tabs 04/21/22 tamsulosin 0.4 mg capsule (Flomax) 0.4 mg PO DAILY #10 caps 04/21/22 ketorolac 10 mg tablet 10 mg PO Q6H 2 days #8 tabs 04/23/22 Allergies Allergy/AdvReac Type Severity Reaction Status Date / Time No Known Allergies Allergy Unverified 04/23/22 08:30 General Stated Complaint: FlankPain KODY: 3 Review of Systems All systems reviewed & are unremarkable except as noted in HPI and below Constitutional Constitutional: Denies chills, Denies excessive sweating, Denies fatigue, Denies fever(s), Denies weakness and Denies weight loss Eyes Eyes: Reports system reviewed and no additional complaints, except as documented and Denies blurry vision ENT Ears, Nose, Mouth, and Throat: Denies vertigo, Denies dizziness, Denies otalgia, Denies nasal congestion, Denies sore throat and Denies throat swelling Cardiovascular Cardiovascular: Denies chest pain, Denies syncope, Denies rapid heart rate and Denies dyspnea Respiratory Respiratory: Denies chest congestion, Denies cough, Denies pain on inspiration and Denies dyspnea Gastrointestinal Gastrointestinal: Denies abdominal pain, Denies diarrhea and Denies vomiting Genitourinary Genitourinary: Denies hematuria, Denies dysuria and Reports flank pain Musculoskeletal Musculoskeletal: Denies back pain and Denies joint swelling Integumentary/Breasts Skin/Breast: Denies lesions and Denies rash Neurologic Neurologic: Denies behavioral changes, Denies confusion, Denies vertigo, Denies dizziness, Denies syncope, Denies localized weakness and Denies weakness Psychiatric Psychiatric: Denies behavioral changes, Denies confusion and Denies depression Endocrine Endocrine: Denies excessive sweating and Denies fatigue Hematologic/Lymphatic Hematologic/Lymphatic: Denies easy bruising and Denies lymphadenopathy Allergic/Immunologic Allergic/Immunologic: Denies throat swelling PFSH All Active Problems (Updated 04/23/22 @ 10:28 by Josiane Ledesma DO) Kidney stone on left side (Acute) Ureteral colic (Acute) Anemia (Chronic) Upper extremity pain (Acute) BPH (benign prostatic hyperplasia) (Chronic) Physician orders for life-sustaining treatment (POLST) form indicates patient wish for [id number] status (Acute) BPH (benign prostatic hyperplasia) (Chronic) Diverticulosis of colon without diverticulitis (Chronic) ED (erectile dysfunction) (Chronic) Essential hypertension (Chronic) Hemorrhoids (Chronic) Hyperlipidemia (Chronic 04/02/13) 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 colonoscopy; 01/22- heme + stool; NEG. STOOL CARDS (3) RETURNED; 01/2008-heme + stool;neg. stool cards Occult blood in stools Peptic ulcer 04/06/14 in his 20's EGD-neg 08/31 Peptic ulcer (04/06/14) Smoker quit in 1979 Smoker Surgical History Arthroplasty 03/06/16; RIGHT KNEE; [facility] Arthroscopy (~1995) LEFT WRIST H/O arthroscopy 11/19/95 left wrist H/O knee surgery x 3 History of arthroscopy History of knee surgery KNEE REPAIR X 3 Replacement of total knee joint (04/22/13) [facility]; LEFT KNEE S/P total knee replacement 11/19/12 [facility]; left knee-2012; [facility]-right knee 02/2016 S/P vasectomy 04/19/15 Status post total knee replacement Status post vasectomy (04/19/15) Vasectomy Family History Mother , AGE 90 Dementia Glaucoma Father , AGE 90 Essential hypertension Hyperlipidemia DJD (degenerative joint disease) HIP Liver failure DIALYSIS Alcohol abuse Maternal Grandmother Cancer Paternal Grandfather No problems noted. Paternal Grandmother No problems noted. Son No problems noted. Son No problems noted. Son No problems noted. Social History Smoking/Tobacco Use Status: Former Tobacco Use tobacco type: cigarettes Quit Date: 11/19/79 Tobacco: How many years used: 16 Second Hand Exposure: Yes Smoking risk assessment performed?: Yes Alcohol Intake: current Alcohol Intake frequency: a few times a week Alcohol type: beer and hard liquor Drug use: Rarely Substance use type: marijuana Caregiver/Support person: No Household members: spouse Do you need help understanding health information?: Rarely Pets and animals: Yes Pets and animals: dog(s), horse(s) and farm animals Sexually active: Yes Do you think of yourself as: straight/heterosexual Current gender identity: male What is your relationship status?: How often do you talk on the phone with friends or family?: three or more times per week How often do you get together with friends or relatives?: once per week Do you belong to any clubs or organized social groups?: yes Panel score (0-1 are the most socially isolated patients): 3 What type of physical activity do you participate in: walking and bicycling Duration: 15-30 minutes/day Frequency: 1-2 times per week Riana/Hinduism: No preference Special riana needs: No Seatbelt use: always Helmet use: Yes Drive intox or ride w/intox cement truck driver: No Do you feel safe at home: Yes Do you feel safe in your relationship?: Yes Exam Const General: cooperative and healthy appearing Orientation: alert, awake and oriented x3 HENMT Head: normal to inspection Ears: hearing grossly normal bilaterally, external ears normal and TM's normal bilaterally General nose exam: external nose normal Face and sinus: normal facial exam Mouth: oral mucosae normal Teeth and gingiva: dentition normal Throat: posterior oropharynx normal Eyes General: appearance normal, both eyes and all related structures Eyelids: eyelids normal Pupils: PERRL EOM: EOM intact bilaterally Neck Neck: normal visual inspection Lymphatic: no lymphadenopathy noted Chest Chest: normal inspection of the chest Resp Effort & Inspection: normal respiratory effort and able to speak in complete sentences Auscultation: clear to auscultation bilaterally Cardio Rate: regular rate Rhythm: regular rhythm GI Inspection: normal to inspection Palpation: soft, not firm, no guarding, no hepatosplenomegaly, no masses and nontender Auscultation: normal bowel sounds Back/Spine/Pelvis Back: no CVA tenderness Skin General skin exam: no rashes or lesions noted Neuro General: patient alert and patient awake Cognition: normal cognition Speech: speech normal Gait: normal gait Motor: muscle tone normal throughout Sensory Exam: no sensory deficits noted Extrem General: normal to inspection, full ROM and capillary refill normal Psych Appearance: grossly normal Mental Status: mental status grossly normal Speech and Movement: speech and movement normal Affect: normal affect Thought Process: normal
[2022-04-23 08:40] LABS: Bilirubin Negative (Negative); Blood Moderate (Negative); Clarity Clear (Clear); Glucose Negative (Negative); Ketones Negative (Negative); Leukocyte Esterase Small (Negative); Nitrite Negative (Negative); Specific Gravity 1.015 (1.005-1.025); Urobilinogen 0.2 EU/dL (Up TO 0.2); pH 5.5 (5-8)
[2022-04-23 08:59] LABS: Bacteria Rare HPF (Negative); C & S Indicated? Yes; Casts Negative LPF (Negative); Crystals Negative HPF (Negative); Epithelial Cells Negative HPF (Negative); Mucus Negative (Negative)
[2022-04-23] MEDS: Normal Saline 1,000 ML 1000 ML IV (09:00)
[2022-04-23 09:02] LABS: Abs Immature Grans 0.02 10^3/uL (0.0-0.06); Absolute Basophil Count 0.04 10^3/uL (0.0-0.2); Absolute Eosinophil Count 0.14 10^3/uL (0.0-0.7); Absolute Lymphocyte Count 0.74 10^3/uL (1.2-3.4); Absolute Monocyte Count 0.49 10^3/uL (0.1-0.8); Basophils % 0.6; Eosinophils % 1.9; HCT 40.8 % (40.0-50.0); HGB 12.1 g/dL (13.5-17.5); Immature Grans % 0.3; Lymphocytes % 10.2; MCH 21.8 pg (27.0-33.0); MCHC 29.7 % (32.0-36.0); MCV 74 fL (80-95); MPV 8.9 fL (8.0-11.0); Monocytes % 6.8; Neutrophils % 80.2; Platelet Count 232 10^3/uL (130-400); RBC 5.54 10^6/uL (4.36-5.78); RDW 24.1 % (11.8-14.1); RDW-SD 61.7 fL; WBC 7.23 10^3/uL (4.4-10.8)
[2022-04-23] MEDS: Ketorolac 30 MG/ML VIAL IVP (09:09)
[2022-04-23 09:14] LABS: ALT 25 U/L (16-63); AST 13 U/L (15-37); Albumin 3.3 g/dL (3.4-5.0); Alkaline Phosphatase 57 U/L (46-116); Anion Gap 7.6 mmol/L (3-11); BUN 15 mg/dL (7-18); Bilirubin, Total 0.4 mg/dL (0.2-1.0); CO2 26.4 mmol/L (21.0-32.0); CREATININE 1.3 mg/dL (0.70-1.30); Calcium 8.8 mg/dL (8.5-10.1); Chloride 106 mmol/L (98-107); Estimated GFR 53.96 (mL/min/1.73m2); Glucose 107 mg/dL (74-106); Potassium 3.9 mmol/L (3.5-5.1); Sodium 140 mmol/L (136-145); Total Protein 6.9 g/dL (6.4-8.2)
[2022-04-23 09:22] LABS: Anisocytosis 3+; Diff Comment RBC Morph Reviewed; Microcytosis 2+
[2022-04-23 09:23] LABS: Poikilocytes 1+
[2022-04-23 10:30] VITALS: BP 123/66; PULSE 69; RESP 16; TEMP 36.8; O2SAT 95
--- NOTE | 2022-04-23 10:35 | NUR.NOTE ---
Dr. Ledesma requesting evaluation this week with Dr. Stoddard[facility]
== END 2022-04-23 10:41 | disposition home or self-care (01) ==
PROVIDERS: Emergency Provider Physician Assistant; PCP Family Medicine
DX: N23 Unspecified renal colic (principal); N13.30 Unspecified hydronephrosis; I10 Essential (primary) hypertension
CPT/HCPCS: 36415; 80053; 96361; 96374; 96375; 99284; 81003; 81015; 85025; 87086; J1885

== ENCOUNTER → 2022-04-25 18:45 | Outpatient (CLI) | payer MEDICARE, SELFPAY ==
--- NOTE | 2022-04-25 15:15 | DI.RAD_ITS ---
Exam(s) XR ABDOMEN FLAT PLATE EXAM: 2D digital imaging was performed. CLINICAL HISTORY: monitor known stone N23. RENAL COLIC N20.0 CALCULUS OF KIDNEY. COMPARISON: CT CT RENAL COLIC WO from 04/21/2022 TECHNIQUE: Supine views of the abdomen performed. FINDINGS: BOWEL GAS PATTERN: Nondistended. CALCIFICATIONS: No change in position of the 7 millimeter calcification which projects over the left L4 transverse process. Phleboliths are seen in the pelvis. OSSEOUS STRUCTURES: Degenerative changes are noted in the spine. OTHER FINDINGS: None. IMPRESSION: 1. Nonobstructive bowel gas pattern. 2. No change in position of left ureteropelvic junction calculus, projecting at the level of L4. DATA REPOSITORY: RADIATION DOSE DELIVERED:
== END ==
PROVIDERS: PCP Family Medicine; Visit Provider Urology
DX: N20.2 Calculus of kidney with calculus of ureter (principal); N23 Unspecified renal colic
CPT/HCPCS: 81003; 99215; 74018

== ENCOUNTER 2022-04-25 20:25 | Outpatient (REF) | payer MEDICARE, SELFPAY ==
[2022-04-25 16:39] LABS: Source Nasal/Nares
[2022-04-25 22:21] LABS: COVID-19 PCR Negative (Negative)
== END 2022-04-25 20:26 | disposition home or self-care (01) ==
LOC: LBN 20:25
PROVIDERS: PCP Family Medicine; Visit Provider Urology
DX: Z20.822 Contact with and (suspected) exposure to COVID-19 (principal); Z01.818 Encounter for other preprocedural examination; N20.0 Calculus of kidney
CPT/HCPCS: 87635; U0005

== ENCOUNTER 2022-04-27 11:48 | Day surgery (SDC) | payer MEDICARE, SELFPAY ==
[2022-04-27] VITALS (7 sets, daily range): BP systolic 111–142; BP diastolic 61–79; PULSE 49–66; RESP 13–18; TEMP 36.1–36.5; O2SAT 94–99; BMI 26.6
--- NOTE | 2022-04-27 11:35 | W.ANESPRE ---
General Info Date of Service Date Performed: 04/27/22 Height: 5 ft 7 in Weight: 77.111 kg Body Mass Index (BMI): 26.6 Surgical Procedure: Operation Date: 04/27/22 14:25 Proposed Procedure Side Surgeon p Cystoscopy/Laser/Retrograde/Ureteroscopy/Possible Stent Left Rafi Carrillo MD Meds Allergies and Home Medications Allergies Allergy/AdvReac Type Severity Reaction Status Date / Time No Known Allergies Allergy Unverified 04/27/22 12:40 Home Medication Medication Instructions Recorded ulofomxkpsb-zkizvnnji-[id number]-hyal 1 ea PO DAILY 04/01/13 750 mg-100 mg-125 mg-1.65 mg tablet (Glucosamine Chondroit Complx Advan) red yeast rice 600 mg capsule 1 cap PO DAILY 04/01/13 saw palmetto fruit extract-zinc 1 ea PO DAILY 04/01/13 picolinate 160 mg-15 mg capsule (Saw [place] Extract (with zinc)) cholecalciferol (vitamin D3) 25 25 mcg PO DAILY 08/09/21 mcg (1,000 unit) capsule olive leaf extract 250 mg capsule See Rx Instructions PO DAILY 08/09/21 omeprazole 40 mg capsule,delayed See Rx Instructions .Route 01/02/22 release .COMPLEX #90 caps sildenafil 100 mg tablet See Rx Instructions .Route 01/02/22 .COMPLEX #24 tabs lisinopril 20 mg tablet 20 mg PO DAILY #90 tab-caps 02/07/22 pravastatin 40 mg tablet 40 mg PO DAILY #90 tab-caps 02/07/22 cephalexin 500 mg capsule 500 mg PO QID 7 days #28 caps 04/21/22 tamsulosin 0.4 mg capsule (Flomax) 0.4 mg PO DAILY #10 caps 04/21/22 ketorolac 10 mg tablet 10 mg PO Q6H PRN pain #10 tabs 04/25/22 oxycodone 10 mg tablet 10 mg PO Q8H PRN pain #12 tabs 04/25/22 Current Visit Medications: Current Medications Generic Name Dose Route Start Last Admin Trade Name Freq PRN Reason Stop Dose Admin Ringer's Solution 1,000 mls @ 80 mls/hr 04/27/22 06:00 IV 05/26/22 23:59 INFUSION REANNA Cefazolin Sodium/Dextrose 2 gm in 50 mls @ 100 mls/hr 04/27/22 06:00 Ancef Duplex IVPB 05/26/22 23:59 PREOP [facility] IV Miscellaneous Supplies 1 each 04/27/22 06:00 Iv Access IV 05/26/22 23:59 DIRECTED REANNA Sodium Chloride 0 ml 04/27/22 06:00 Normal Saline Flush 10 Ml Syr IV 05/26/22 23:59 PRN PRN Sodium Chloride 0 ml 04/27/22 06:00 Normal Saline 10 Ml Vial IJ 05/26/22 23:59 DIRECTED PRN Sterile Water 0 ml 04/27/22 06:00 Water,Injection,Sterile 10 Ml Vial IJ 05/26/22 23:59 DIRECTED PRN PFSH Active Problems Active Problems: Problem Status Onset Code Kidney stone on left side N20.0 Ureteral colic N23 Anemia D64.9 Upper extremity pain M79.603 BPH (benign prostatic hyperplasia) N40.0 Physician orders for life-sustaining treatment (POLST) form indicates patient wish for ec-rzl-ceelonuymea status Z66 BPH (benign prostatic hyperplasia) N40.0 Diverticulosis of colon without diverticulitis K57.30 ED (erectile dysfunction) N52.9 Essential hypertension I10 Hemorrhoids K64.9 Hyperlipidemia 04/02/13 E78.5 Left-sided low back pain with sciatica 04/19/15 M54.42 Low iron 08/14/16 E61.1 Osteoarthritis M19.90 Medical History Medical History Hx of primary hypertension 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 colonoscopy; 01/22- heme + stool; NEG. STOOL CARDS (3) RETURNED; 01/2008-heme + stool;neg. stool cards Occult blood in stools Peptic ulcer 04/06/14 in his 20's EGD-neg 08/31 Peptic ulcer (04/06/14) Smoker quit in 1979 Smoker Surgical History Surgical History Arthroplasty 03/06/16; RIGHT KNEE; [facility] Arthroscopy (~1995) LEFT WRIST H/O arthroscopy 11/19/95 left wrist H/O knee surgery x 3 History of arthroscopy History of knee surgery KNEE REPAIR X 3 Replacement of total knee joint (06/04/13) [facility]; LEFT KNEE S/P total knee replacement 11/19/12 [facility]; left knee-2012; [facility]-right knee 02/2016 S/P vasectomy 04/19/15 Status post total knee replacement Status post vasectomy (04/19/15) Vasectomy Tobacco Smoking/Tobacco Use Status: Former Tobacco Use Passive smoking exposure: Yes Second hand exposure: Yes Alcohol Alcohol Intake: current Alcohol intake frequency: a few times a week Alcohol type: beer and hard liquor Substance Use Substance use: Rarely Substance use type: marijuana Vital Signs and Lab Results Vital Signs Most Recent Vital Signs in EMR: Temp Pulse Resp BP Pulse Ox 36.5 C 57 L 17 132/78 98 04/27/22 12:32 04/27/22 12:32 04/27/22 12:32 04/27/22 12:32 04/27/22 12:32 Lab Results Blood Type / Crossmatch: No Data to Display Complete Blood Count: White Blood Count 7.23 10^3/uL (4.4-10.8) 04/23/22 08:55 Red Blood Count 5.54 10^6/uL (4.36-5.78) 04/23/22 08:55 Hemoglobin 12.1 g/dL (13.5-17.5) L 04/23/22 08:55 Hematocrit 40.8 % (40.0-50.0) 04/23/22 08:55 Platelet Count 232 10^3/uL (130-400) 04/23/22 08:55 Complete Metabolic Panel: Sodium Level 140 mmol/L (136-145) 04/23/22 08:55 Potassium Level 3.9 mmol/L (3.5-5.1) 04/23/22 08:55 Chloride Level 106 mmol/L (98-107) 04/23/22 08:55 Carbon Dioxide Level 26.4 mmol/L (21.0-32.0) 04/23/22 08:55 Blood Urea Nitrogen 15 mg/dL (7-18) 04/23/22 08:55 Creatinine 1.3 mg/dL (0.70-1.30) 04/23/22 08:55 Estimated GFR/1.73 m2 53.96 (mL/min/1.73m2) 04/23/22 08:55 Calcium Level 8.8 mg/dL (8.5-10.1) 04/23/22 08:55 Albumin 3.3 g/dL (3.4-5.0) L 04/23/22 08:55 Glucose Level 107 mg/dL (74-106) H 04/23/22 08:55 Liver Function Panel: Alanine Aminotransferase (ALT/SGPT) 25 U/L (16-63) 04/23/22 08:55 Aspartate Amino Transf (AST/SGOT) 13 U/L (15-37) L 04/23/22 08:55 Coagulation Panel: No Data to Display Cardiac Panel: No Data to Display Arterial Blood Gas: No Data to Display Venous Blood Gas: No Data to Display Pancreas Panel: No Data to Display Thyroid Panel: No Data to Display Infectious Disease: Coronavirus (COVID-19)(PCR) Negative (Negative) 04/25/22 15:55 Coronavirus 2019 Source Nasal/Nares 04/25/22 15:55 Blood Cultures: No Data to Display Toxicology Panel: No Data to Display Anesthesia Assessment and Plan Anesthesia History Personal History: No History of Anesthesia Complications Family History: No Family History of Anesthesia Complications Exercise Tolerance Exercise Tolerance: Metabolic Equivalents>4 Pertinent Negatives Pertinent Negatives: No Symptoms of GERD, No Major Cardiovascular Symptoms or Complaints, No Major Pulmonary Symptoms or Complaints and No History of CVA/TIA Cardiac & Pulmonary Exam Cardiac Exam: Normal S1/S2 Heart Sounds Pulmonary Exam: Clear Bilateral Breath Sounds Implantable Cardiac Device Does patient have a Pacemaker or an ICD?: No Airway Exam Known Difficult Airway: No Mallampati Class: 2 Mouth Opening: Normal (> 3cm) Thyromental Distance: Greater than 3 cm Neck Range of Motion: Full ROM Neck Circumference: Normal Teeth Condition: Normal Dentition ASA Classification ASA Score: ASA 2 Emergency Case?: No NPO Status NPO Status: NPO Clears >2 hours, Solids >8 hours Anesthesia Plan Resuscitation Status: Full Code Anesthesia Technique: General Anesthesia Airway Planned: LMA Monitors Used: Standard Monitors
[2022-04-27] MEDS: Lactated Ringers 1,000 ML 80 ML IV (12:56)
--- NOTE | 2022-04-27 13:36 | W.PM.HP.N ---
Date of service: 04/27/22 Time of Service: 13:36 Assessment and Plan Assessment and plan (1) Ureteral colic: Status: Acute Assessment and plan: We will move forward with cystoscopy, left retrograde pyelogram, left flexible ureteroscopy with holmium laser lithotripsy and possible stent placement History of Present Illness History of Present Illness Chief Complaint: Left ureteral stone Narrative: This is a 76-year-old gentleman who is referred by the providers in the emergency department.? The patient presented about 5 days ago with left-sided flank pain.? He was found to have a 7 mm left proximal ureteral stone. He was discharged with analgesics and alpha blockers.? He returned to the emergency department 2 days later with recurrence of severe pain. He is now having intermittent discomfort on the left side.? Some of the discomfort feels lower in the abdomen than it had been on his initial presentation.? He also has had some gas type pains which improved somewhat with a bowel movement today. He recalls a similar episode about 10 years ago.? He required overnight hospitalization at the [facility] but he did not require any type of surgical treatment.? He never caught a stone for analysis. He has no known history of hyperparathyroidism or gout. Review of Systems Constitutional Comments: No fevers or chills No vision change or dysphasia No diabetes or thyroid No shortness of breath, cough or hemoptysis No chest pain or palpitations No hepatitis, ulcers, jaundice No seizures, strokes or peripheral neuropathy No bleeding disorders or anemia Prior hip and knee replacement. No gout PFSH All Active Problems (Updated 04/27/22 @ 12:39 by Rhonda Alexandre RN) Osteoarthritis (Chronic) s/p tkr 05/01 of left knee Low iron (Chronic 08/14/16) 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) Hyperlipidemia (Chronic 04/02/13) Hemorrhoids (Chronic) Essential hypertension (Chronic) ED (erectile dysfunction) (Chronic) Diverticulosis of colon without diverticulitis (Chronic) BPH (benign prostatic hyperplasia) (Chronic) Physician orders for life-sustaining treatment (POLST) form indicates patient wish for sa-lhi-jjlwkesrsfb status (Acute) BPH (benign prostatic hyperplasia) (Chronic) Upper extremity pain (Acute) Anemia (Chronic) Kidney stone on left side (Acute) Ureteral colic (Acute) Medical History Hx of primary hypertension 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 colonoscopy; 01/22- heme + stool; NEG. STOOL CARDS (3) RETURNED; 01/2008-heme + stool;neg. stool cards Occult blood in stools Peptic ulcer 04/06/14 in his 20's EGD-neg 08/31 Peptic ulcer (04/06/14) Smoker quit in 1979 Smoker Surgical History Arthroplasty 03/06/16; RIGHT KNEE; [facility] Arthroscopy (~1995) LEFT WRIST H/O arthroscopy 11/19/95 left wrist H/O knee surgery x 3 History of arthroscopy History of knee surgery KNEE REPAIR X 3 Replacement of total knee joint (04/22/13) [facility]; LEFT KNEE S/P total knee replacement 11/19/12 [facility]; left knee-2012; [facility]-right knee 02/2016 S/P vasectomy 04/19/15 Status post total knee replacement Status post vasectomy (04/19/15) Vasectomy Family History Mother , AGE 90 Dementia Glaucoma Father , AGE 90 Essential hypertension Hyperlipidemia DJD (degenerative joint disease) HIP Liver failure DIALYSIS Alcohol abuse Maternal Grandmother Cancer Paternal Grandfather No problems noted. Paternal Grandmother No problems noted. Son No problems noted. Son No problems noted. Son No problems noted. Social History Smoking/Tobacco Use Status: Former Tobacco Use tobacco type: cigarettes Quit Date: 11/19/79 Tobacco: How many years used: 16 Second Hand Exposure: Yes Smoking risk assessment performed?: Yes Alcohol Intake: current Alcohol Intake frequency: a few times a week Alcohol type: beer and hard liquor Drug use: Rarely Substance use type: marijuana Caregiver/Support person: No Household members: spouse Do you need help understanding health information?: Rarely Pets and animals: Yes Pets and animals: dog(s), horse(s) and farm animals Sexually active: Yes Do you think of yourself as: straight/heterosexual Current gender identity: male What is your relationship status?: How often do you talk on the phone with friends or family?: three or more times per week How often do you get together with friends or relatives?: once per week Do you belong to any clubs or organized social groups?: yes Panel score (0-1 are the most socially isolated patients): 3 What type of physical activity do you participate in: walking and bicycling Duration: 15-30 minutes/day Frequency: 1-2 times per week Riana/Mormonism: No preference Special riana needs: No Seatbelt use: always Helmet use: Yes Drive intox or ride w/intox city route driver: No Do you feel safe at home: Yes Do you feel safe in your relationship?: Yes Meds Allergies and Home Medications Allergies Allergy/AdvReac Type Severity Reaction Status Date / Time No Known Allergies Allergy Unverified 04/27/22 12:40 Home Medications Medication Instructions Recorded Confirmed Type hwawcxoxrhb-ldttwpnlv-prnz492-hyal 1 ea PO DAILY 04/01/13 04/27/22 History 750 mg-100 mg-125 mg-1.65 mg tablet (Glucosamine Chondroit Complx Advan) red yeast rice 600 mg capsule 1 cap PO DAILY 04/01/13 04/27/22 History saw palmetto fruit extract-zinc 1 ea PO DAILY 04/01/13 04/27/22 History picolinate 160 mg-15 mg capsule (Saw [place] Extract (with zinc)) cholecalciferol (vitamin D3) 25 25 mcg PO DAILY 08/09/21 04/27/22 History mcg (1,000 unit) capsule olive leaf extract 250 mg capsule See Rx Instructions PO DAILY 08/09/21 04/27/22 History omeprazole 40 mg capsule,delayed See Rx Instructions .Route 01/02/22 04/27/22 Rx release .COMPLEX #90 caps sildenafil 100 mg tablet See Rx Instructions .Route 01/02/22 04/27/22 Rx .COMPLEX #24 tabs lisinopril 20 mg tablet 20 mg PO DAILY #90 tab-caps 02/07/22 04/27/22 Rx pravastatin 40 mg tablet 40 mg PO DAILY #90 tab-caps 02/07/22 04/27/22 Rx cephalexin 500 mg capsule 500 mg PO QID 7 days #28 caps 04/21/22 04/27/22 Rx tamsulosin 0.4 mg capsule (Flomax) 0.4 mg PO DAILY #10 caps 04/21/22 04/27/22 Rx ketorolac 10 mg tablet 10 mg PO Q6H PRN pain #10 tabs 04/25/22 04/27/22 Rx oxycodone 10 mg tablet 10 mg PO Q8H PRN pain #12 tabs 04/25/22 04/27/22 Rx Exam Const General: cooperative Neck Neck: supple Resp Effort & Inspection: normal respiratory effort Auscultation: clear to auscultation bilaterally Cardio Palpation: normal PMI Rate: regular rate GI Palpation: soft and no guarding Neuro General: patient alert, patient awake and patient oriented x3 Results Last Vital Signs Temp 36.5 C 04/27/22 12:32 Pulse 57 L 04/27/22 12:32 Resp 17 04/27/22 12:32 BP 132/78 04/27/22 12:32 Pulse Ox 98 04/27/22 12:32
--- NOTE | 2022-04-27 13:45 | DI.RAD_ITS ---
Exam(s) XR RETROGRADE IN OR EXAM: XR RETROGRADE IN OR CLINICAL HISTORY: LEFT RENAL STONE. TECHNIQUE: 2D digital imaging was performed. COMPARISON: No exams were available for comparison FINDINGS: Fluoroscopy provided during left side urologic procedure. See report procedure for details. Cumulative dose 15.966mGy IMPRESSION: DATA REPOSITORY: RADIATION DOSE DELIVERED:
[2022-04-27] MEDS: ceFAZolin 2 GM/50 ML BAG IVPB (14:09)
[2022-04-27] MEDS: Lidocaine 2% Jelly 6 ML SYR (14:41)
--- NOTE | 2022-04-27 15:18 | PDOC.DSDIS_ITS ---
Discharge Plan Disposition Patient Disposition: HOME Condition: Stable Discharge Details Reason For Visit: (L) UTEREAL STONE Attending Provider: Rafi Carrillo Primary Care Provider: Donna Mclaughlin Home Meds and New Rx's Prescriptions: No Action ketorolac 10 mg tablet 10 mg PO Q6H PRN (Reason: pain) Qty: 10 0RF oxycodone 10 mg tablet 10 mg PO Q8H MDD 4 PRN (Reason: pain) Qty: 12 0RF cholecalciferol (vitamin D3) 25 mcg (1,000 unit) capsule 25 mcg PO DAILY olive leaf extract 250 mg capsule See Rx Instructions PO DAILY Rx Instructions: 250mg daily PO daily; lisinopril 20 mg tablet 20 mg PO DAILY Qty: 90 12RF pravastatin 40 mg tablet 40 mg PO DAILY Qty: 90 4RF red yeast rice 600 MG capsule 1 cap PO DAILY Saw [place] Extract (w-zinc) 1 EACH capsule 1 ea PO DAILY Glucos Chond Cplx Advanced 1 EACH tablet 1 ea PO DAILY omeprazole 40 mg capsule,delayed release(DR/EC) See Rx Instructions .ROUTE .COMPLEX Qty: 90 3RF Dose Instruction: TAKE 1 CAPSULE DAILY Rx Instructions: TAKE 1 CAPSULE DAILY sildenafil 100 mg tablet See Rx Instructions .ROUTE .COMPLEX Qty: 24 5RF Dose Instruction: TAKE 1 TABLET DAILY Rx Instructions: TAKE 1 TABLET DAILY tamsulosin [Flomax] 0.4 mg capsule 0.4 mg PO DAILY Qty: 10 0RF cephalexin 500 mg capsule 500 mg PO QID 7 Days Qty: 28 0RF Discharge Instructions Additional Instructions: no need to strain urine expect blood in urine and discomfort with urination (pt has stent) my office will contact pt to arrange return to OR as outpatient to remove ureteral stent and ureteroscopy to make sure all stone fragments have been removed. Activity:: Activity as Tolerated Shower/Bathe:: 24 hours Diet:: As Tolerated Discharge Orders Discharge Orders: Discharge Order (Routine); Ordered 04/27/22 Ordered By: Rafi Carrillo DS: Diagnosis Discharge Diagnosis (1) Ureteral colic: Status: Acute
[2022-04-27] MEDS: Omnipaque 300 MG/ML 50 ML BTL (15:22)
--- NOTE | 2022-04-27 15:23 | ROE_ITS ---
Date of service: 04/27/22 Time of Service: 15:23 Operative Note Operative Note DATE OF PROCEDURE: 04/27/22 PRE-OP DIAGNOSIS: left ureteral stone POST-OP DIAGNOSIS: same PROCEDURE: cystoscopy, left retrograde pyelogram, left ureteroscopy with holmium laser lithotripsy, stone fragment extraction, insert left ureteral stent SURGEON: Rafi Carrillo ANESTHESIA TYPE: General LMA/ETT Refer to Anesthesia Record ESTIMATED BLOOD LOSS: 50 PATHOLOGY: other (stone for chemical analysis) COMPLICATIONS: None Patient was transported to: PACU Patient's condition: stable Implants: 6 slovenian by 22 to 30 cm left ureteral stent Indications: A 76-year-old gentleman who presented to the ER with left flank pain. He was identified as having a left proximal ureteral stone. His stone has not progressed and his pain continues. He presents for stone manipulation Findings: left proximal ureteral stone Procedure Description: Was brought to the operating room on 04/27/2022. He was given preoperative IV antibiotics. After successful induction of general anesthesia, he was placed in the dorsal lithotomy position. His genitalia was prepped and draped. 2% Xylocaine jelly was instilled into the urethra to act as a local anesthetic. A 22 [place] rigid cystoscope was passed through the urethra into the bladder. The bladder was inspected with a 30 degree lens. The pendulous, bulbar and membranous urethra all appeared normal with no strictures. The prostatic urethra showed some lateral lobe enlargement but no significant median lobe. The bladder was inspected and no papillary or nodular lesions were seen. The ureteral orifices appeared normal. The left orifice was cannulated with a 5 [place] access catheter and a Glidewire was advanced up the left ureter. His previously identified left ureteral stone was radiopaque and was seen on fluoroscopy in the OR We then the access catheter and passed a dual-lumen catheter over the wire. A second wire was then positioned and a ureteral access sheath was advanced over one of the wires. The other wire was left as a safety wire. I passed a flexible ureteroscope through the lumen access and advanced the scope up to the level of the stone. The stone was visualized and was treated with a 272 ?m holmium laser fiber. Stone fragmented and I was able to grasp multiple stone fragments in a 0 tip stone basket and removed them. The stone fragments were sent to pathology for chemical analysis. Visibility became an issue and there did appear to be some residual stone fragments, so we elected to place a ureteral stent and make a plan to return visit to the operating room. I chose a 6 Kazakh variable length stent and advanced it over the safety wire. The proximal end of the stent was curled in the upper pole calyx and the distal end was curled within the bladder. Positioning of the stent was confirmed both fluoroscopically and cystoscopically. The patient tolerated the procedure well with no complications.
[2022-04-27] MEDS: Phenazopyridine 200 MG TAB PO (16:09)
--- NOTE | 2022-04-27 16:09 | W.ANESPOSTOP ---
Postoperative Evaluation Date, Time and Location Date Performed: 04/27/22 Time Performed: 16:09 Patient Location: Day Surgery Unit Vital Signs Most Recent Imported Vital Signs: Most Recent Vital Signs Temp Pulse Resp BP Pulse Ox 36.4 C L 55 L 16 138/79 94 04/27/22 16:03 04/27/22 16:03 04/27/22 16:03 04/27/22 16:03 04/27/22 16:03 Pain Score Most Recent Pain Score: Most Recent Pain Score Pain Level 3 04/27/22 16:03 Assessment Mental Status: Awake (Alert & Oriented to Patient Baseline) Airway and Respiratory Function: Patent airway with normal (patient baseline) respiratory exam Cardiovascular Function: Hemodynamically Stable Hydration Status: Adequately Hydrated Nausea & Vomiting: No Nausea or Vomiting Pain: Pt. Denies Any Pain Peripheral Nerve Block: Patient did not receive a nerve block
[2022-05-04 23:48] LABS: Source: Left Ureter
== END 2022-04-27 11:49 | disposition home or self-care (01) ==
PROVIDERS: PCP Family Medicine; Referring Provider Family Medicine; Visit Provider Urology
PROC: (CPT 52356; principal; 2022-04-27 14:15)
DX: N20.0 Calculus of kidney (principal); I10 Essential (primary) hypertension; N40.0 Benign prostatic hyperplasia without lower urinary tract symptoms; E78.5 Hyperlipidemia, unspecified; D64.9 Anemia, unspecified
CPT/HCPCS: 52356; 74420; 82365; J0690; J1885; J2405; J2704; Q9967

== ENCOUNTER 2022-05-09 00:41 | Outpatient (CLI) | payer MEDICARE, SELFPAY ==
[2022-05-09 09:30] LABS: Source Nasal/Nares
[2022-05-09 14:05] LABS: COVID-19 PCR Negative (Negative)
== END 2022-05-09 00:42 | disposition home or self-care (01) ==
LOC: LBO 00:41
PROVIDERS: PCP Family Medicine; Visit Provider Urology
DX: Z20.822 Contact with and (suspected) exposure to COVID-19 (principal); Z01.818 Encounter for other preprocedural examination
CPT/HCPCS: 87635; U0005

== ENCOUNTER 2022-05-11 07:24 | Day surgery (SDC) | payer MEDICARE, SELFPAY ==
[2022-05-11] VITALS (7 sets, daily range): BP systolic 116–137; BP diastolic 65–83; PULSE 53–63; RESP 17–23; TEMP 36.3–36.6; O2SAT 95–98; BMI 26.9
[2022-05-11] MEDS: Lactated Ringers 1,000 ML 80 ML IV (08:01)
--- NOTE | 2022-05-11 08:03 | ANES.PREOP_ITS ---
General Info Date of Service Date Performed: 05/11/22 Height: 5 ft 7 in Weight: 77.9 kg Body Mass Index (BMI): 26.9 Surgical Procedure: Operation Date: 05/11/22 08:55 Proposed Procedure Side Surgeon p Cystoscopy/Possible Laser and Stone Extraction/Retrograde/Ureteroscopy/Removal of Ureteral Stent Left Rafi Carrillo MD Meds Allergies and Home Medications Allergies Allergy/AdvReac Type Severity Reaction Status Date / Time No Known Allergies Allergy Unverified 05/11/22 07:47 Home Medication Medication Instructions Recorded lnaxbwhbfez-fpgspedjb-[id number]-hyal 1 ea PO DAILY 04/01/13 750 mg-100 mg-125 mg-1.65 mg tablet (Glucosamine Chondroit Complx Advan) red yeast rice 600 mg capsule 1 cap PO DAILY 04/01/13 saw palmetto fruit extract-zinc 1 ea PO DAILY 04/01/13 picolinate 160 mg-15 mg capsule (Saw [place] Extract (with zinc)) cholecalciferol (vitamin D3) 25 25 mcg PO DAILY 08/09/21 mcg (1,000 unit) capsule olive leaf extract 250 mg capsule See Rx Instructions PO DAILY 08/09/21 omeprazole 40 mg capsule,delayed See Rx Instructions .Route 01/02/22 release .COMPLEX #90 caps sildenafil 100 mg tablet See Rx Instructions .Route 01/02/22 .COMPLEX #24 tabs lisinopril 20 mg tablet 20 mg PO DAILY #90 tab-caps 02/07/22 pravastatin 40 mg tablet 40 mg PO DAILY #90 tab-caps 02/07/22 tamsulosin 0.4 mg capsule (Flomax) 0.4 mg PO DAILY #10 caps 04/21/22 ketorolac 10 mg tablet 10 mg PO Q6H PRN pain #10 tabs 04/25/22 oxycodone 10 mg tablet 10 mg PO Q8H PRN pain #12 tabs 04/25/22 Current Visit Medications: Current Medications Generic Name Dose Route Start Last Admin Trade Name Freq PRN Reason Stop Dose Admin Ringer's Solution 1,000 mls @ 80 mls/hr 05/11/22 06:00 05/11/22 08:01 IV 06/09/22 23:59 80 mls/hr INFUSION REANNA Administration Cefazolin Sodium/Dextrose 2 gm in 50 mls @ 100 mls/hr 05/11/22 06:00 Ancef Duplex IVPB 05/11/22 16:00 PREOP [facility] IV Miscellaneous Supplies 1 each 05/11/22 06:00 Iv Access IV 06/09/22 23:59 DIRECTED REANNA Sodium Chloride 0 ml 05/11/22 06:00 Normal Saline Flush 10 Ml Syr IV 06/09/22 23:59 PRN PRN Sodium Chloride 0 ml 05/11/22 06:00 Normal Saline 10 Ml Vial IJ 06/09/22 23:59 DIRECTED PRN Sterile Water 0 ml 05/11/22 06:00 Water,Injection,Sterile 10 Ml Vial IJ 06/09/22 23:59 DIRECTED PRN PFSH Active Problems Active Problems: Problem Status Onset Code Osteoarthritis M19.90 Low iron 08/14/16 E61.1 Left-sided low back pain with sciatica 04/19/15 M54.42 Hyperlipidemia 04/02/13 E78.5 Hemorrhoids K64.9 Essential hypertension I10 ED (erectile dysfunction) N52.9 Diverticulosis of colon without diverticulitis K57.30 BPH (benign prostatic hyperplasia) N40.0 Physician orders for life-sustaining treatment (POLST) form indicates patient wish for rj-twq-pmixuhukyua status Z66 BPH (benign prostatic hyperplasia) N40.0 Upper extremity pain M79.603 Anemia D64.9 Kidney stone on left side N20.0 Ureteral colic N23 Medical History Medical History Hx of primary hypertension 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 colonoscopy; 01/22- heme + stool; NEG. STOOL CARDS (3) RETURNED; 01/2008-heme + stool;neg. stool cards Occult blood in stools Peptic ulcer 04/06/14 in his 20's EGD-neg 08/31 Peptic ulcer (04/06/14) Smoker quit in 1979 Smoker Surgical History Surgical History Arthroplasty 03/06/16; RIGHT KNEE; [facility] Arthroscopy (~1995) LEFT WRIST H/O arthroscopy 11/19/95 left wrist H/O knee surgery x 3 History of arthroscopy History of knee surgery KNEE REPAIR X 3 Replacement of total knee joint (06/04/13) [facility]; LEFT KNEE S/P total knee replacement 11/19/12 [facility]; left knee-2012; [facility]-right knee 02/2016 S/P vasectomy 04/19/15 Status post total knee replacement Status post vasectomy (04/19/15) Vasectomy Tobacco Smoking/Tobacco Use Status: Former Tobacco Use Passive smoking exposure: Yes Second hand exposure: Yes Alcohol Alcohol Intake: current Alcohol intake frequency: a few times a week Alcohol type: beer and hard liquor Substance Use Substance use: Rarely Substance use type: marijuana Vital Signs and Lab Results Vital Signs Most Recent Vital Signs in EMR: Most Recent Vital Signs Temp Pulse Resp BP Pulse Ox 36.6 C 63 17 133/83 98 05/11/22 07:39 05/11/22 07:39 05/11/22 07:39 05/11/22 07:39 05/11/22 07:39 Lab Results Blood Type / Crossmatch: No Data to Display Complete Blood Count: White Blood Count 7.23 10^3/uL (4.4-10.8) 04/23/22 08:55 Red Blood Count 5.54 10^6/uL (4.36-5.78) 04/23/22 08:55 Hemoglobin 12.1 g/dL (13.5-17.5) L 04/23/22 08:55 Hematocrit 40.8 % (40.0-50.0) 04/23/22 08:55 Platelet Count 232 10^3/uL (130-400) 04/23/22 08:55 Complete Metabolic Panel: Sodium Level 140 mmol/L (136-145) 04/23/22 08:55 Potassium Level 3.9 mmol/L (3.5-5.1) 04/23/22 08:55 Chloride Level 106 mmol/L (98-107) 04/23/22 08:55 Carbon Dioxide Level 26.4 mmol/L (21.0-32.0) 04/23/22 08:55 Blood Urea Nitrogen 15 mg/dL (7-18) 04/23/22 08:55 Creatinine 1.3 mg/dL (0.70-1.30) 04/23/22 08:55 Estimated GFR/1.73 m2 53.96 (mL/min/1.73m2) 04/23/22 08:55 Calcium Level 8.8 mg/dL (8.5-10.1) 04/23/22 08:55 Albumin 3.3 g/dL (3.4-5.0) L 04/23/22 08:55 Glucose Level 107 mg/dL (74-106) H 04/23/22 08:55 Liver Function Panel: Alanine Aminotransferase (ALT/SGPT) 25 U/L (16-63) 04/23/22 08: 55 Aspartate Amino Transf (AST/SGOT) 13 U/L (15-37) L 04/23/22 08: 55 Coagulation Panel: No Data to Display Cardiac Panel: No Data to Display Arterial Blood Gas: No Data to Display Venous Blood Gas: No Data to Display Pancreas Panel: No Data to Display Thyroid Panel: No Data to Display Infectious Disease: Coronavirus (COVID-19)(PCR) Negative (Negative) 05/09/22 08:20 Coronavirus 2019 Source Nasal/Nares 05/09/22 08:20 Blood Cultures: No Data to Display Toxicology Panel: No Data to Display Anesthesia Assessment and Plan Anesthesia History Personal History: No History of Anesthesia Complications Family History: Family History Unknown Exercise Tolerance Exercise Tolerance: Metabolic Equivalents>4 Pertinent Negatives Pertinent Negatives: No Major Cardiovascular Symptoms or Complaints, No Major Pulmonary Symptoms or Complaints and No History of CVA/TIA Cardiac & Pulmonary Exam Cardiac Exam: Normal S1/S2 Heart Sounds Pulmonary Exam: Clear Bilateral Breath Sounds Implantable Cardiac Device Does patient have a Pacemaker or an ICD?: No Airway Exam Known Difficult Airway: No Mallampati Class: 2 Mouth Opening: Normal (> 3cm) Thyromental Distance: Greater than 3 cm Neck Range of Motion: Full ROM Neck Circumference: Normal Teeth Condition: Normal Dentition ASA Classification ASA Score: ASA 2 Emergency Case?: No NPO Status NPO Status: NPO Clears >2 hours, Solids >8 hours Anesthesia Plan Resuscitation Status: Full Code Anesthesia Technique: General Anesthesia Airway Planned: LMA Monitors Used: Standard Monitors
--- NOTE | 2022-05-11 08:17 | W.PM.HP.N ---
Date of service: 05/11/22 Time of Service: 08:17 Assessment and Plan Assessment and plan (1) Kidney stone on left side: Status: Acute Assessment and plan: For cystoscopy, stent removal, repeat ureteroscopy with extraction of any residual stone fragments. We will be prepared to treat any larger stone fragments with the holmium laser if needed. History of Present Illness History of Present Illness Chief Complaint: Ureteral stone Narrative: This is a 76-year-old gentleman who presented with renal colic due to a left ureteral stone. He underwent flexible ureteroscopy, holmium laser lithotripsy and extraction of stone fragments. The stone fragments that were retrieved were 100% calcium oxalate monohydrate. During the procedure, visibility became compromised and I was unsure that we removed all stone fragments, so we placed a ureteral stent. He returns to the operating room now for repeat ureteroscopy and removal of any residual stone fragments. Review of Systems Narrative: No fevers or chills No vision change or dysphasia No diabetes or thyroid dysfunction No shortness of breath, cough or hemoptysis No chest pain or palpitations No nausea, vomiting, hepatitis, ulcers, jaundice No seizures, strokes or peripheral neuropathy No bleeding disorders or anemia No gout PFSH All Active Problems Osteoarthritis (Chronic) s/p tkr 05/01 of left knee Low iron (Chronic 08/14/16) 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) Hyperlipidemia (Chronic 04/02/13) Hemorrhoids (Chronic) Essential hypertension (Chronic) ED (erectile dysfunction) (Chronic) Diverticulosis of colon without diverticulitis (Chronic) BPH (benign prostatic hyperplasia) (Chronic) Physician orders for life-sustaining treatment (POLST) form indicates patient wish for yu-uqh-jqdoydodkxc status (Acute) BPH (benign prostatic hyperplasia) (Chronic) Upper extremity pain (Acute) Anemia (Chronic) Kidney stone on left side (Acute) Ureteral colic (Acute) Medical History Hx of primary hypertension 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 colonoscopy; 01/22- heme + stool; NEG. STOOL CARDS (3) RETURNED; 01/2008-heme + stool;neg. stool cards Occult blood in stools Peptic ulcer 04/06/14 in his 's EGD-neg 08/31 Peptic ulcer (04/06/14) Smoker quit in 1979 Smoker Surgical History Arthroplasty 03/06/16; RIGHT KNEE; [facility] Arthroscopy (~1995) LEFT WRIST H/O arthroscopy 11/19/95 left wrist H/O knee surgery x 3 History of arthroscopy History of knee surgery KNEE REPAIR X 3 Replacement of total knee joint (04/22/13) [facility]; LEFT KNEE S/P total knee replacement 11/19/12 [facility]; left knee-2012; [facility]-right knee 02/2016 S/P vasectomy 04/19/15 Status post total knee replacement Status post vasectomy (04/19/15) Vasectomy Family History Mother , AGE 90 Dementia Glaucoma Father , AGE 90 Essential hypertension Hyperlipidemia DJD (degenerative joint disease) HIP Liver failure DIALYSIS Alcohol abuse Maternal Grandmother Cancer Paternal Grandfather No problems noted. Paternal Grandmother No problems noted. Son No problems noted. Son No problems noted. Son No problems noted. Social History Smoking/Tobacco Use Status: Former Tobacco Use tobacco type: cigarettes Quit Date: 11/19/79 Tobacco: How many years used: 16 Second Hand Exposure: Yes Smoking risk assessment performed?: Yes Alcohol Intake: current Alcohol Intake frequency: a few times a week Alcohol type: beer and hard liquor Drug use: Rarely Substance use type: marijuana Caregiver/Support person: No Household members: spouse Do you need help understanding health information?: Rarely Pets and animals: Yes Pets and animals: dog(s), horse(s) and farm animals Sexually active: Yes Do you think of yourself as: straight/heterosexual Current gender identity: male What is your relationship status?: How often do you talk on the phone with friends or family?: three or more times per week How often do you get together with friends or relatives?: once per week Do you belong to any clubs or organized social groups?: yes Panel score (0-1 are the most socially isolated patients): 3 What type of physical activity do you participate in: walking and bicycling Duration: 15-30 minutes/day Frequency: 1-2 times per week Riana/Baptism: No preference Special riana needs: No Seatbelt use: always Helmet use: Yes Drive intox or ride w/intox furniture mover driver: No Do you feel safe at home: Yes Do you feel safe in your relationship?: Yes Meds Allergies and Home Medications Allergies Allergy/AdvReac Type Severity Reaction Status Date / Time No Known Allergies Allergy Unverified 05/11/22 07:47 Home Medications Medication Instructions Recorded Confirmed Type ammknnflgrr-gqjelijiw-mbfj819-hyal 1 ea PO DAILY 04/01/13 05/11/22 History 750 mg-100 mg-125 mg-1.65 mg tablet (Glucosamine Chondroit Complx Advan) red yeast rice 600 mg capsule 1 cap PO DAILY 04/01/13 05/11/22 History saw [place] fruit extract-zinc 1 ea PO DAILY 04/01/13 05/11/22 History picolinate 160 mg-15 mg capsule (Saw [place] Extract (with zinc)) cholecalciferol (vitamin D3) 25 25 mcg PO DAILY 08/09/21 05/11/22 History mcg (1,000 unit) capsule olive leaf extract 250 mg capsule See Rx Instructions PO DAILY 08/09/21 05/11/22 History omeprazole 40 mg capsule,delayed See Rx Instructions .Route 01/02/22 05/11/22 Rx release .COMPLEX #90 caps sildenafil 100 mg tablet See Rx Instructions .Route 01/02/22 05/11/22 Rx .COMPLEX #24 tabs lisinopril 20 mg tablet 20 mg PO DAILY #90 tab-caps 02/07/22 05/11/22 Rx pravastatin 40 mg tablet 40 mg PO DAILY #90 tab-caps 02/07/22 05/11/22 Rx tamsulosin 0.4 mg capsule (Flomax) 0.4 mg PO DAILY #10 caps 04/21/22 05/11/22 Rx ketorolac 10 mg tablet 10 mg PO Q6H PRN pain #10 tabs 04/25/22 05/11/22 Rx oxycodone 10 mg tablet 10 mg PO Q8H PRN pain #12 tabs 04/25/22 05/11/22 Rx Exam Const General: cooperative and healthy appearing Neck Neck: supple Resp Effort & Inspection: normal respiratory effort Auscultation: clear to auscultation bilaterally Cardio Rate: regular rate Rhythm: regular rhythm GI Palpation: soft and no masses Neuro General: patient alert, patient awake and patient oriented x3 Results Last Vital Signs Temp 36.6 C 05/11/22 07:39 Pulse 63 05/11/22 07:39 Resp 17 05/11/22 07:39 BP 133/83 05/11/22 07:39 Pulse Ox 98 05/11/22 07:39
[2022-05-11] MEDS: ceFAZolin 2 GM/50 ML BAG IVPB (08:49)
[2022-05-11] MEDS: Lidocaine 2% Jelly 6 ML SYR (09:01)
[2022-05-11] MEDS: Omnipaque 300 MG/ML 50 ML BTL (09:17)
--- NOTE | 2022-05-11 09:24 | PDOC.DSDIS_ITS ---
Discharge Plan Disposition Patient Disposition: HOME Condition: Good Discharge Details Reason For Visit: ureteroscopy Attending Provider: Rafi Carrillo Primary Care Provider: Donna Mclaughlin Home Meds and New Rx's Prescriptions: No Action ketorolac 10 mg tablet 10 mg PO Q6H PRN (Reason: pain) Qty: 10 0RF oxycodone 10 mg tablet 10 mg PO Q8H MDD 4 PRN (Reason: pain) Qty: 12 0RF cholecalciferol (vitamin D3) 25 mcg (1,000 unit) capsule 25 mcg PO DAILY olive leaf extract 250 mg capsule See Rx Instructions PO DAILY Rx Instructions: 250mg daily PO daily; lisinopril 20 mg tablet 20 mg PO DAILY Qty: 90 12RF pravastatin 40 mg tablet 40 mg PO DAILY Qty: 90 4RF red yeast rice 600 MG capsule 1 cap PO DAILY Saw [place] Extract (w-zinc) 1 EACH capsule 1 ea PO DAILY Glucos Chond Cplx Advanced 1 EACH tablet 1 ea PO DAILY omeprazole 40 mg capsule,delayed release(DR/EC) See Rx Instructions .ROUTE .COMPLEX Qty: 90 3RF Dose Instruction: TAKE 1 CAPSULE DAILY Rx Instructions: TAKE 1 CAPSULE DAILY sildenafil 100 mg tablet See Rx Instructions .ROUTE .COMPLEX Qty: 24 5RF Dose Instruction: TAKE 1 TABLET DAILY Rx Instructions: TAKE 1 TABLET DAILY tamsulosin [Flomax] 0.4 mg capsule 0.4 mg PO DAILY Qty: 10 0RF Discharge Instructions Additional Instructions: no need to strain urine followup 4 to 8 weeks with renal ultrasound Activity:: Activity as Tolerated Shower/Bathe:: 24 hours Diet:: As Tolerated Discharge Orders Discharge Orders: Discharge Order (Routine); Ordered 05/11/22 Ordered By: Rafi Carrillo DS: Diagnosis Discharge Diagnosis (1) Kidney stone on left side: Status: Acute
--- NOTE | 2022-05-11 09:27 | W.PM.OP ---
Date of service: 05/11/22 Time of Service: 09:27 Operative Note Operative Note DATE OF PROCEDURE: 05/11/22 PRE-OP DIAGNOSIS: Left ureteral stone POST-OP DIAGNOSIS: same PROCEDURE: cystoscopy, remove left ureteral stent, left ureteroscopy with stone fragment extraction SURGEON: Rafi Carrillo ANESTHESIA TYPE: General LMA/ETT Refer to Anesthesia Record ESTIMATED BLOOD LOSS: 0 PATHOLOGY: other (stones for chemical analysis) COMPLICATIONS: None Patient was transported to: PACU Patient's condition: stable Implants: none Indications: This is a 76-year-old gentleman who initially presented with a large obstructing proximal left ureteral stone. He underwent ureteroscopy with holmium laser lithotripsy of his stone. Visibility became compromised before all stone fragments could be removed, so we placed a ureteral stent. He returns now for stent removal and extraction of any residual stone fragments. Findings: fragments in left distal ureter Procedure Description: The patient was given preoperative IV antibiotics and brought to the operating room on 05/11/2022. After successful induction of general anesthesia, he was placed in the dorsal lithotomy position. His genitalia was prepped and draped. 2% Xylocaine jelly was instilled into the urethra to act as a local anesthetic. A 22 [place] rigid cystoscope was then passed through the urethra into the bladder. The urethra and bladder were inspected with a 30 degree lens. The pendulous, bulbar and membranous urethra appeared normal with no strictures. The prostatic urethra showed some lateral lobe enlargement but no median lobe. The bladder neck was entered and the bladder mucosa was inspected. Both the stent could be seen protruding from the left ureteral orifice. The stent was grasped with alligator forceps and brought out to the level of the urethral meatus. A Glidewire was then advanced through the lumen of the stent. Once the wire was visible fluoroscopically in the ureter, the stent was removed leaving the wire in place. A dual-lumen catheter was then advanced over the wire. We injected Omnipaque through the second lumen of the dual-lumen catheter and the order to perform retrograde pyelogram. There appeared to be filling defects in the distal ureter but no filling defects in the proximal ureter. I then placed a second wire through the dual-lumen catheter. I advanced a ureteral access sheath over the second wire leaving the first wire as a safety wire. I then passed the flexible ureteroscope through the access sheath. I was able to visualize 2 stone fragments in the distal ureter. Each fragment was grasped in a 0 tip stone basket and removed in its entirety. The stone fragments were sent to the pathology lab for chemical analysis. The scope was also advanced up to the previous location of the stone. No stone fragments were seen in the proximal ureter. We elected not to replace the ureteral stent. All scopes and wires were removed. The bladder was drained. He was taken to the recovery room in stable condition.
--- NOTE | 2022-05-11 09:30 | DI.RAD_ITS ---
Exam(s) XR RETROGRADE IN OR EXAM: XR RETROGRADE IN OR CLINICAL HISTORY: Kidney stone on left side. TECHNIQUE: Fluoroscopy was provided for the referring physician for guidance with performing retrogr harpreet procedure. COMPARISON: No exams were available for comparison FINDINGS: Please see procedure note for details. Fluoro time: 31.8 seconds RADIATION DOSE DELIVERED: scooby Diana=7.03 mGy
[2022-05-11] MEDS: fentaNYL 100 MCG/2 ML VIAL IVP (09:35)
[2022-05-11] MEDS: Phenazopyridine 200 MG TAB PO (10:06)
--- NOTE | 2022-05-11 15:03 | W.ANESPOSTOP ---
Postoperative Evaluation Date, Time and Location Date Performed: 05/11/22 Time Performed: 15:03 Patient Location: Day Surgery Unit Vital Signs Most Recent Imported Vital Signs: Most Recent Vital Signs Temp Pulse Resp BP Pulse Ox 36.4 C L 53 L 18 136/76 97 05/11/22 10:24 05/11/22 10:24 05/11/22 10:24 05/11/22 10:24 05/11/22 10:24 Pain Score Most Recent Pain Score: Most Recent Pain Score Pain Level 4 05/11/22 10:24 Assessment Mental Status: Awake (Alert & Oriented to Patient Baseline) Airway and Respiratory Function: Patent airway with normal (patient baseline) respiratory exam Cardiovascular Function: Hemodynamically Stable Hydration Status: Adequately Hydrated Nausea & Vomiting: No Nausea or Vomiting Pain: Pain is tolerable per patient Peripheral Nerve Block: Patient did not receive a nerve block Postoperative Comments:: Patient seen earlier today. Denies questions, satisfied with care.
[2022-05-16 15:36] LABS: Source: Left Ureter
== END 2022-05-11 11:18 | disposition home or self-care (01) ==
PROVIDERS: PCP Family Medicine; Visit Provider Urology
PROC: (CPT 52352; principal; 2022-05-11 08:45)
DX: N20.0 Calculus of kidney (principal); I10 Essential (primary) hypertension; D64.9 Anemia, unspecified; N40.0 Benign prostatic hyperplasia without lower urinary tract symptoms
CPT/HCPCS: 52352; 74420; 82365; J0690; J1100; J2405; J2704; J3010; Q9967

== ENCOUNTER 2022-06-20 03:18 | Outpatient (CLI) | payer MEDICARE, SELFPAY ==
[2022-06-20 12:27] LABS: HCT 46.7 % (40.0-50.0); HGB 15.2 g/dL (13.5-17.5); MCH 25.7 pg (27.0-33.0); MCHC 32.5 % (32.0-36.0); MCV 79 fL (80-95); MPV 9.7 fL (8.0-11.0); Platelet Count 212 10^3/uL (130-400); RBC 5.91 10^6/uL (4.36-5.78); RDW 22.2 % (11.8-14.1); RDW-SD 62.3 fL; WBC 4.75 10^3/uL (4.4-10.8)
[2022-06-20 13:03] LABS: Iron 71 ug/dL (65-175)
[2022-06-20 13:15] LABS: ALT 24 U/L (16-63); AST 16 U/L (15-37); Albumin 3.9 g/dL (3.4-5.0); Alkaline Phosphatase 56 U/L (46-116); BUN 24 mg/dL (7-18); Bilirubin, Total 0.5 mg/dL (0.2-1.0); CREATININE 1.1 mg/dL (0.70-1.30); Calcium 9.2 mg/dL (8.5-10.1); Calculated LDL 148 mg/dL (<100); Chloride 105 mmol/L (98-107); Cholesterol 216 mg/dL (<200); Ferritin 36 ng/mL (26-388); Glucose 82 mg/dL (74-106); HDL Cholesterol 55 mg/dL (40-60); Potassium 4.1 mmol/L (3.5-5.1); Sodium 141 mmol/L (136-145); Triglyceride 65 mg/dL (<150)
== END 2022-06-20 03:19 | disposition home or self-care (01) ==
LOC: LOS 03:18
PROVIDERS: PCP Family Medicine; Visit Provider Family Medicine
DX: I10 Essential (primary) hypertension (principal); E78.5 Hyperlipidemia, unspecified; E61.1 Iron deficiency
CPT/HCPCS: 36415; 80053; 80061; 85027; 82728; 83540

== ENCOUNTER → 2022-06-23 00:35 | Outpatient (CLI) | payer MEDICARE, SELFPAY ==
--- NOTE | 2022-06-23 07:45 | DI.US_ITS ---
Exam(s) US RENAL EXAM: US RENAL CLINICAL HISTORY: post op, hydro evaluation,LT KIDNEY STONE, N20.0. TECHNIQUE: Rubio scale, color and spectral Doppler were used. COMPARISON: CT CT RENAL COLIC WO from 04/21/2022 FINDINGS: Renal size in cm: Right: 10.9. Left: 11.1. Echogenicity: Normal. Hydronephrosis: There is persistent moderate left hydronephrosis. Cyst or mass: There is a 3.2 x 2.8 x 2.9 cm simple cyst in the superior pole. There is a right parap elvic cyst present. These were present on the CT scan from 04/21/2022. Nephrolithiasis: No. Other findings: None. Bladder:Grossly unremarkable. Ureteral jets: Right: Not visualized on this examination. Left: Visualized and unremarkable. Prevoid vol:161 cc Postvoid vol:0 cc Prostate: 6 cc Renal color flow: Symmetric and within normal limits. IMPRESSION: 1. Moderate left hydroureteronephrosis. 2. Right renal cysts. No follow-up is recommended. DATA REPOSITORY:
== END ==
PROVIDERS: PCP Family Medicine; Visit Provider Urology
DX: N20.0 Calculus of kidney (principal); N13.30 Unspecified hydronephrosis; N28.1 Cyst of kidney, acquired
CPT/HCPCS: 76770

== ENCOUNTER → 2022-06-27 13:52 | Outpatient (BNVA) | payer MEDICARE, SELFPAY | PROVIDERS: PCP Family Medicine; Referring Provider Family Medicine; Visit Provider Urology | DX: N20.1 Calculus of ureter (principal) | CPT/HCPCS: 99213 ==

== ENCOUNTER 2022-12-26 02:42 | Outpatient (CLI) | payer MEDICARE, SELFPAY ==
--- NOTE | 2022-12-26 06:30 | DI.US_ITS ---
Exam(s) US RENAL EXAM: US RENAL CLINICAL HISTORY: monitor hydronephrosis,lt ureteral calculus,n20.1 TECHNIQUE: Ultrasound of both kidneys performed using standard protocol. COMPARISON: CT CT RENAL COLIC WO from 04/21/2022 US US RENAL from 06/23/2022 FINDINGS: RIGHT KIDNEY: Measures 10.6 cm in length. There is a 3 cm cyst in superior pole of the right kidney again noted, as seen on prior CT scan. Another slightly smaller 2 cm cyst is noted at the midpole level. There is a 3 millimeter echogenic focus at midpole level the right kidney consistent with nonobstructive calcu jorge. Cortical thickness right kidney is normal. LEFT KIDNEY: Measures 10.4 cm in length. No cysts evident. There is mild hydronephrosis as well as some dilatatio n of the visualized upper left ureter. No intrarenal calculi noted. No significant thinning of the cortical mantle. No intrarenal calculi noted. No solid renal masses. URINARY BLADDER: Prevoid volume is 230 cc Postvoid volume is 6 cc No evidence of bladder mass nor diverticuli. Prostate gland slightly enlarged and lobulated. Ureterovesical jets: Both identified and appear symmetrical IMPRESSION: 1. There is mild-moderate left-sided hydronephrosis as well as dilatation of the visualized upper ur eter. I note that there was a significant size calculus in the upper left ureter on CT scan of April 2022 and question whether this has passed or been treated. There were also other calculi seen in the left kidney at that time which may have passed distally into the ureter and causing hydronephrosis. Recommend follow-up noninfused CT scan to determine the position of calculi in the left collecting s ystem given the hydronephrosis here. 2. In the right kidney there are intrarenal calculi and cysts but no hydronephrosis. 3. Mildly enlarged prostate gland. No obvious mass in the urinary bladder and the bladder empties a dequately. DATA REPOSITORY:
== END 2022-12-26 03:02 ==
LOC: DI 02:42
PROVIDERS: PCP Family Medicine; Visit Provider Urology
DX: N40.1 Benign prostatic hyperplasia with lower urinary tract symptoms; N13.2 Hydronephrosis with renal and ureteral calculous obstruction
CPT/HCPCS: 76770; 99213

== ENCOUNTER → 2023-08-13 01:27 | Outpatient (CLI) | payer MEDICARE, SELFPAY ==
--- NOTE | 2023-08-13 07:00 | DI.US_ITS ---
Exam(s) US RENAL EXAM: US RENAL CLINICAL HISTORY: monitor known stones/mild left hydro,n20.0 TECHNIQUE: Ultrasound of both kidneys performed using standard protocol. COMPARISON: US US RENAL from 12/26/2022 FINDINGS: RIGHT KIDNEY: Measures 10.8 cm in length. Previously described cysts again noted, the largest measuring 4 cm. Norm al cortical thickness and corticomedullary differentiation .No solid masses No intrarenal calculi nor hydronephrosis. LEFT KIDNEY: Measures 9.5 cm in length. No cysts evident. Normal cortical thickness and corticomedullary differen tiaion. No solids masses. Mild hydronephrosis on the left side again noted. No intrarenal calculi. URINARY BLADDER: Prevoid volume is 148 cc Postvoid volume is 23 cc Both ureterovesical jets were identified in the bladder lumen. No evidence of obvious bladder mass. Prostate gland: Measures 4 cm x 2.6 cm x 2.8 cm. Volume 13.9 cm. IMPRESSION: 1. Mild left-sided hydronephrosis appears unchanged from ultrasound of 12/26/2022. I note that ther e was a significant size calculus in the upper left ureter on CT scan of April 2022. There also other calculi seen in the left kidney on that prior CT scan April 2022 which may have passed distally into the ureter causing hydronephrosis. If clinically indicated follow-up CT scan can be performed to det ermine presence and location of remaining calculi in the ureters. 2. Benign cysts in the right kidney again noted. No solid lesions in either kidney. DATA REPOSITORY:
== END ==
PROVIDERS: PCP Family Medicine; Visit Provider Urology
DX: N20.0 Calculus of kidney (principal)
CPT/HCPCS: 76770

== ENCOUNTER → 2023-08-17 07:47 | Outpatient (BNVA) | payer MEDICARE, SELFPAY | PROVIDERS: PCP Family Medicine; Referring Provider Family Medicine; Visit Provider Urology | DX: I10 Essential (primary) hypertension (principal); N20.0 Calculus of kidney; N40.0 Benign prostatic hyperplasia without lower urinary tract symptoms | CPT/HCPCS: 99212 ==

== ENCOUNTER 2023-09-11 02:56 | Outpatient (CLI) | payer MEDICARE, SELFPAY ==
[2023-09-11 12:50] LABS: HCT 44.6 % (40.0-50.0); HGB 15.1 g/dL (13.5-17.5); MCHC 33.9 % (32.0-36.0); MCV 89 fL (80-95); MPV 9.4 fL (8.0-11.0); Platelet Count 242 10^3/uL (130-400); RBC 5.03 10^6/uL (4.36-5.78); RDW 13.1 % (11.8-14.1); RDW-SD 42.6 fL; WBC 5.17 10^3/uL (4.4-10.8)
[2023-09-11 13:16] LABS: ALT 28 U/L (16-63); AST 19 U/L (15-37); Albumin 3.8 g/dL (3.4-5.0); Alkaline Phosphatase 59 U/L (46-116); Anion Gap 9.9 mmol/L (3-11); BUN 25 mg/dL (7-18); Bilirubin, Total 0.4 mg/dL (0.2-1.0); CO2 25.1 mmol/L (21.0-32.0); CREATININE 1.2 mg/dL (0.70-1.30); Calcium 9.4 mg/dL (8.5-10.1); Chloride 105 mmol/L (98-107); Estimated GFR 63.07 (mL/min/1.73m2); Ferritin 41 ng/mL (26-388); Glucose 92 mg/dL (74-106); Sodium 140 mmol/L (136-145); Total Protein 7.4 g/dL (6.4-8.2)
[2023-09-11 13:17] LABS: Iron 60 ug/dL (65-175)
[2023-09-11 23:38] LABS: PSA, Diagnostic 0.3 ng/mL (<=6.5)
== END 2023-09-11 02:57 | disposition home or self-care (01) ==
LOC: LOS 02:57
PROVIDERS: Urology; PCP Family Medicine; Visit Provider Family Medicine
DX: N40.0 Benign prostatic hyperplasia without lower urinary tract symptoms (principal); E61.1 Iron deficiency; I10 Essential (primary) hypertension; D64.9 Anemia, unspecified
CPT/HCPCS: 36415; 80053; 85027; 82728; 83540; 84153

== ENCOUNTER 2023-11-11 12:10 | Emergency (ER) | payer MEDICARE, SELFPAY ==
[2023-11-11] VITALS (21 sets, daily range): BP systolic 142–179; BP diastolic 75–101; PULSE 57–75; RESP 16–26; TEMP 36.7; O2SAT 89–99
--- NOTE | 2023-11-11 12:30 | DI.CT_ITS ---
Exam(s) CT CHEST WO EXAM: CT CHEST WO CLINICAL HISTORY: chest pain. TECHNIQUE: Multi planar reconstructions were performed. CONTRAST MATERIAL: None COMPARISON: CT CT RENAL COLIC WO from 04/21/2022 CR XR ABDOMEN FLAT PLATE from 04/25/2022 FINDINGS: CHEST: LUNGS: There is a small right-sided pneumothorax approximately 10 percent. No obvious rib fractures nor sternal fracture or clavicle fractures. No lung contusion or pleural ef fusion. Mild increased markings in the dependent aspects of both lung gill. No significant findin gs in the trachea and mainstem bronchi. MEDIASTINUM: No evidence of sternal fracture or mediastinal hematoma. No incidental hilar nor medias tinal adenopathy. CARDIAC: Heart size is upper normal. There is no pericardial effusion.Caliber of the thoracic aorta is within upper normal limits. Cannot assess for dissection without IV contrast. Moderate coronary artery calcifications noted. VISUALIZED UPPER ABDOMEN:No ascites. No obvious laceration seen in the liver and spleen and partiall y visualized kidneys. However, there is a subcapsular benign cyst in the right hepatic lobe again no sarah. Splenic granulomas. Renal cysts. There is also bilateral hydronephrosis which requires invest igation. OSSEOUS: No fractures evident. No obvious rib fractures nor vertebral fractures. No sternal fractur es. No clavicle fractures.. IMPRESSION: 1. There is right-sided pneumothorax, approximately 10-15 percent. No overlying rib fractures noted. No lung contusion or pleural effusion. No mediastinal hematoma. 2. There is bilateral hydronephrosis, more so than previous and this requires further investigation o f this incidental finding in this trauma patient. First read by [facility]. Final report called by myself to ER physician 11/11/2023 at 6:15 p.m. RADIATION DOSE DELIVERED: Total DLP DATA REPOSITORY: All CT scans at this facility are submitted to the National Radiology Data Registry (NRDR) Dose Index Registry (DIR) with the [employer] ([employer]). RADIATION OPTIMIZATION: All CT scans at this facility use at least one of these dose optimization te chniques: automated exposure control; mA and/or kV adjustment per patient size (includes targeted exa ms where dose is matched to clinical indication); or iterative reconstruction.
--- NOTE | 2023-11-11 12:30 | RT.EKG_ITS ---
APPROVED REPORT Exam: Resting ECG Reason for Exam: chest pain Patient Location: E HR:64 bpm ECG Measurements Heart Rate 64 AXIS RI 189 P 52 QRSd 98 QRS -9 QT 405 T 31 QTc 420 Conclusion Sinus rhythm...normal P axis, V-rate 60- 99 NSR LAD< Q waves in III and aVF, no STEMI no acute sttw changes, no previous available for comparison .
[2023-11-11] MEDS: HYDROmorphone 2 MG/ML SYR 0.5 MG IVP (12:43)
[2023-11-11] MEDS: Ondansetron 4 MG/2 ML VIAL IVP (12:44)
[2023-11-11 12:53] LABS: Abs Immature Grans 0.02 10^3/uL (0.0-0.06); Absolute Basophil Count 0.04 10^3/uL (0.0-0.2); Absolute Eosinophil Count 0.18 10^3/uL (0.0-0.7); Absolute Lymphocyte Count 0.91 10^3/uL (1.2-3.4); Absolute Monocyte Count 0.21 10^3/uL (0.1-0.8); Absolute Neutrophil Count 3.04 10^3/uL (1.2-6.7); Basophils % 0.9; Eosinophils % 4.1; HCT 46.8 % (40.0-50.0); HGB 15.8 g/dL (13.5-17.5); Immature Grans % 0.5; Lymphocytes % 20.7; MCH 29.5 pg (27.0-33.0); MCHC 33.8 % (32.0-36.0); MCV 88 fL (80-95); MPV 8.7 fL (8.0-11.0); Monocytes % 4.8; Platelet Count 179 10^3/uL (130-400); RBC 5.35 10^6/uL (4.36-5.78); RDW 12.8 % (11.8-14.1); RDW-SD 41.1 fL
[2023-11-11 13:11] LABS: ALT 28 U/L (16-63); AST 22 U/L (15-37); Albumin 3.7 g/dL (3.4-5.0); Alkaline Phosphatase 70 U/L (46-116); BUN 22 mg/dL (7-18); Bilirubin, Total 0.4 mg/dL (0.2-1.0); CREATININE 1.2 mg/dL (0.70-1.30); Chloride 104 mmol/L (98-107); Estimated GFR 63.07 (mL/min/1.73m2); Glucose 113 mg/dL (74-106); Potassium 3.6 mmol/L (3.5-5.1); Sodium 140 mmol/L (136-145); Troponin I < 50 ng/L (<or=60)
--- NOTE | 2023-11-11 13:48 | DI.VRAD_ITS ---
PROCEDURE INFORMATION: Exam: CT Chest Without Contrast; Diagnostic Exam date and time: 11/11/2023 1:18 PM Age: 77 years old Clinical indication: Injury or trauma; Other: Hit playing hockey last night; Blunt trauma (contusions or hematomas) TECHNIQUE: Imaging protocol: Diagnostic computed tomography of the chest without contrast. 3D rendering (Not supervised by radiologist): MIP and/or 3D reconstructed images were created by the technologist. COMPARISON: No relevant comparison study. FINDINGS: Lungs: Mild bibasilar atelectasis versus scar. Pleural spaces: Unremarkable. No pneumothorax. No pleural effusion. Heart: Cardiomegaly. Coronary arteries: Calcified coronary arteries. Lymph nodes: Unremarkable. No enlarged lymph nodes. Vasculature: Atherosclerotic disease. Liver: Hepatic granuloma. Hypodensity in the inferior right hepatic lobe consistent with a hepatic cyst. Gallbladder and bile ducts: Distended gallbladder. Spleen: Splenic granuloma. Kidneys and ureters: Bilateral hydronephrosis. Right nephrolithiasis. Right 4.1 cm simple renal cyst. Bones/joints: Multilevel degenerative changes of the spine. Soft tissues: Dependent edema in the soft tissues of the back. IMPRESSION: 1. No acute findings. 2. Bilateral hydronephrosis. Recommend additional imaging for further evaluation of etiology. 3. Bibasilar atelectasis. 4. Cardiomegaly. Calcified coronary arteries. Atherosclerotic disease. 5. Additional findings as discussed above. Dictated and Authenticated by: Leslie Serrano MD. Ordering:LITTLE Herring MD
--- NOTE | 2023-11-11 14:24 | W.ED.GENAD ---
Discharge Plan Disposition Patient Disposition: Home Condition: Stable Discharge Details Clinical Impression: Chest wall contusion Primary Care Provider: Donna Mclaughlin ED Provider: Nevaeh Camargo Home Meds and New Rx's Prescriptions: Continued cholecalciferol (vitamin D3) 25 mcg (1,000 unit) capsule 25 mcg PO DAILY olive leaf extract 250 mg capsule See Rx Instructions PO DAILY Rx Instructions: 250mg daily PO daily; lisinopril 20 mg tablet 20 mg PO DAILY Qty: 90 12RF turmeric root extract 500 mg capsule 500 mg PO DAILY Oligonol PO DAILY hawthorn extract 150 mg capsule 150 mg PO DAILY red yeast rice 600 MG capsule 1 cap PO DAILY Saw [place] Extract (w-zinc) 1 EACH capsule 1 ea PO DAILY Glucos Chond Cplx Advanced 1 EACH tablet 1 ea PO DAILY sildenafil 100 mg tablet See Rx Instructions .ROUTE .COMPLEX Qty: 24 5RF Dose Instruction: TAKE 1 TABLET DAILY Rx Instructions: TAKE 1 TABLET DAILY omeprazole 40 mg capsule,delayed release(DR/EC) See Rx Instructions .ROUTE .COMPLEX Qty: 90 3RF Dose Instruction: TAKE 1 CAPSULE DAILY Rx Instructions: TAKE 1 CAPSULE DAILY Discharge Instructions Instructions: Contusion in Adults (ED) Additional Instructions: Please take oxycodone sparingly as needed for discomfort Take the Flexeril, 5 mg every 8 hours as needed for discomfort, try to take this simultaneously with the oxycodone Make sure you continue to take full inhalation and exhalation, at least 8 times a day to prevent pneumonia Follow-up with Dr. Carrillo, you have hydronephrosis or fluid in both of your kidneys, it looks like you have had this intermittently in the past Please return earlier should you have worsening pain, shortness of breath, or she develop new or worsening complaints Referrals: Rafi Carrillo MD [ [facility] STAFF PHYSICIAN] - Donna Mclaughlin MD, [place] [Primary Care Provider] - Discharge Data Discharge Date/Time-TO BE ENTERED AT DEPARTURE: 11/11/23 14:40 Medical Decision Making 78-year-old male presenting with report of right posterior thorax pain after a fall ice-skating. Denies head injury, denies anticoagulation, alert and oriented x 4, GCS 15 No crepitus on chest wall exam, no stridor, uvula midline, pupils equal round reactive to light accommodation, no midline cervical spine tenderness tenderness with palpation in the right posterior thorax, no visible sign of trauma, no abdominal tenderness, neurovascularly intact all 4 extremities No tenderness to hips or lower extremities CT chest was ordered to evaluate for pneumothorax or rib fracture, this does not show evidence of acute abnormality per virtual radiology interpretation Patient is feeling improvement after IV pain medication, he will receive oral pain medication will treat for rib fracture empirically, specifically no pneumothorax noted on CT scan per virtual radiology No hypoxia oxygen 99% on room air, no tachypnea, respiratory rate 18 No respiratory distress Of note is an incidental finding bilateral hydronephrosis which has been seen previously on CT scan, patient's creatinine is within normal limits, he is able to empty completely with urination He has a history of stones He has no flank pain prior to the traumatic injury He is encouraged to follow-up with Dr. Carrillo, his urologist, I have low suspicion that this is newly obstructive in nature and he will need close outpatient follow-up Return precautions reviewed and patient expressed understanding HPI General Date/Time Provider Initiated Documentation: 11/11/23 12:13. HPI Narrative: This 78-year-old male presents with right chest wall injury after a fall while playing hockey landing on his right side. Has discomfort with breathing. Patient is alert and oriented x 4, does not report any head injury or loss of consciousness. States the pain is worsened with breathing. Denies any dizziness, vision change, history of coagulopathy, lower extremity or back injury Related Data Home Medications Medication Instructions Recorded Confirmed [id number] 1 ea PO DAILY 04/01/13 11/15/23 750 mg-100 mg-125 mg-1.65 mg tablet (Glucosamine Chondroit Complx Advan) red yeast rice 600 mg capsule 1 cap PO DAILY 04/01/13 11/15/23 saw palmetto fruit extract-zinc 1 ea PO DAILY 04/01/13 11/15/23 picolinate 160 mg-15 mg capsule (Saw [place] Extract (with zinc)) cholecalciferol (vitamin D3) 25 25 mcg PO DAILY 08/09/21 11/15/23 mcg (1,000 unit) capsule olive leaf extract 250 mg capsule See Rx Instructions PO DAILY 08/09/21 11/15/23 sildenafil 100 mg tablet See Rx Instructions .Route 01/02/22 11/15/23 .COMPLEX #24 tabs lisinopril 20 mg tablet 20 mg PO DAILY #90 tab-caps 02/07/22 11/15/23 omeprazole 40 mg capsule,delayed See Rx Instructions .Route 12/13/22 11/15/23 release .COMPLEX #90 caps Oligonol PO DAILY 08/16/23 08/17/23 hawthorn extract 150 mg capsule 150 mg PO DAILY 08/16/23 11/15/23 turmeric root extract 500 mg 500 mg PO DAILY 08/16/23 11/15/23 capsule Previous Rx's Medication Instructions Recorded sildenafil 100 mg tablet See Rx Instructions .Route 01/02/22 .COMPLEX #24 tabs lisinopril 20 mg tablet 20 mg PO DAILY #90 tab-caps 02/07/22 omeprazole 40 mg capsule,delayed See Rx Instructions .Route 12/13/22 release .COMPLEX #90 caps Allergies Allergy/AdvReac Type Severity Reaction Status Date / Time No Known Allergies Allergy Unverified 11/15/23 09:01 General Stated Complaint: Chest/Rib KODY: 3 PFSH All Active Problems Pneumothorax on right (Acute) Chest wall contusion (Acute) Osteoarthritis (Chronic) s/p tkr 05/01 of left knee Low iron (Chronic 08/14/16) 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) Hyperlipidemia (Chronic 04/02/13) Hemorrhoids (Chronic) Essential hypertension (Chronic) ED (erectile dysfunction) (Chronic) Diverticulosis of colon without diverticulitis (Chronic) BPH (benign prostatic hyperplasia) (Chronic) Physician orders for life-sustaining treatment (POLST) form indicates patient wish for cv-pwn-ynrucgyzuhw status (Acute) BPH (benign prostatic hyperplasia) (Chronic) Upper extremity pain (Acute) Anemia (Chronic) Medical History Hx of primary hypertension 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 colonoscopy; 01/22- heme + stool; NEG. STOOL CARDS (3) RETURNED; 01/2008-heme + stool;neg. 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 Peptic ulcer 04/06/14 in his 20's EGD-neg 08/31 Surgical History History of arthroscopy History of knee surgery Status post total knee replacement Status post vasectomy (04/19/15) H/O knee surgery x 3 H/O arthroscopy 11/19/95 left wrist S/P total knee replacement 11/19/12 [facility]; left knee-2012; [facility]-right knee 02/2016 S/P vasectomy 04/19/15 Vasectomy Replacement of total knee joint (04/22/13) [facility]; LEFT KNEE KNEE REPAIR X 3 Arthroscopy (~1995) LEFT WRIST Arthroplasty 03/06/16; RIGHT KNEE; H Family History Mother , AGE 90 Dementia Glaucoma Father , AGE 90 Essential hypertension Hyperlipidemia DJD (degenerative joint disease) HIP Liver failure DIALYSIS Alcohol abuse Maternal Grandmother Cancer Paternal Grandfather No problems noted. Paternal Grandmother No problems noted. Son No problems noted. Son No problems noted. Son No problems noted. Social History Smoking/Tobacco Use Status: Former Tobacco Use tobacco type: cigarettes Quit Date: 11/19/79 Tobacco: How many years used: 16 Second Hand Exposure: Yes Smoking risk assessment performed?: Yes Alcohol Intake: current Alcohol Intake frequency: a few times a week Alcohol type: beer and hard liquor Drug use: Rarely Substance use type: marijuana Caregiver/Support person: No Household members: spouse Housing: house Do you need help understanding health information?: Rarely Pets and animals: Yes Pets and animals: cat(s), dog(s), horse(s) and farm animals Sexually active: Yes Do you think of yourself as: straight/heterosexual Current gender identity: male What is your relationship status?: How often do you talk on the phone with friends or family?: three or more times per week How often do you get together with friends or relatives?: once per week Do you belong to any clubs or organized social groups?: yes Panel score (0-1 are the most socially isolated patients): 3 What type of physical activity do you participate in: walking, bicycling and other Details: cut wood Duration: 30-45 minutes/day Frequency: 1-2 times per week Riana/Sikh: No preference Special riana needs: No Seatbelt use: always Helmet use: Yes Drive intox or ride w/intox dinkey driver: No Do you feel safe at home: Yes Do you feel safe in your relationship?: Yes Course Vital Signs Vital signs: Vital Signs Temperature 36.7 C 11/11/23 12:12 Pulse 74 11/11/23 12:12 Respiratory Rate 18 11/11/23 12:12 Blood Pressure 179/101 H 11/11/23 12:12 Pulse Oximetry 99 11/11/23 12:12 Temperature 36.7 C 11/11/23 12:12 Pulse 63 11/11/23 13:01 Pulse 63 11/11/23 13:01 Respiratory Rate 16 11/11/23 13:01 Respiratory Effort Normal 11/11/23 12:16 Blood Pressure 142/75 H 11/11/23 13:01 Blood Pressure Mean 98 11/11/23 13:01 Blood Pressure Position Sitting 11/11/23 12:12 Pulse Oximetry 92 11/11/23 13:01 Oxygen Delivery Method Room Air 11/11/23 12:12 Oxygen Flow Rate 0 11/11/23 12:12 Pain Level 9 11/11/23 12:12 Lab/Test Results Lab/Test Results: Laboratory Tests Range/Units 11/11/23 12:49 WBC (4.4-10.8) 10^3/uL 4.40 RBC (4.36-5.78) 10^6/uL 5.35 Hgb (13.5-17.5) g/dL 15.8 Hct (40.0-50.0) % 46.8 MCV (80-95) fL 88 MCH (27.0-33.0) pg 29.5 MCHC (32.0-36.0) % 33.8 RDW (11.8-14.1) % 12.8 Plt Count (130-400) 10^3/uL 179 MPV (8.0-11.0) fL 8.7 Immature Gran % 0.5 Neutrophils % 69.0 Lymphocytes % 20.7 Monocytes % 4.8 Eosinophils % 4.1 Basophils % 0.9 Nucleated RBC % (0.0-0.3) % 0.0 Absolute Neutrophils (1.2-6.7) 10^3/uL 3.04 Absolute Lymphocytes (1.2-3.4) 10^3/uL 0.91 L Absolute Monocytes (0.1-0.8) 10^3/uL 0.21 Absolute Eosinophils (0.0-0.7) 10^3/uL 0.18 Absolute Basophils (0.0-0.2) 10^3/uL 0.04 Sodium (136-145) mmol/L 140 Potassium (3.5-5.1) mmol/L 3.6 Chloride (98-107) mmol/L 104 Carbon Dioxide (21.0-32.0) mmol/L 26.0 Anion Gap (3-11) mmol/L 10.0 BUN (7-18) mg/dL 22 H Creatinine (0.70-1.30) mg/dL 1.2 Est GFR (CKD-EPI 2020) (mL/min/1.73m2) 63.07 Glucose (74-106) mg/dL 113 H Calcium (8.5-10.1) mg/dL 9.0 Total Bilirubin (0.2-1.0) mg/dL 0.4 AST (15-37) U/L 22 ALT (16-63) U/L 28 Alkaline Phosphatase (46-116) U/L 70 Troponin I (<or=60) ng/L < 50 Total Protein (6.4-8.2) g/dL 7.0 Albumin (3.4-5.0) g/dL 3.7
[2023-11-11] MEDS: Ketorolac 15 MG/ML VIAL 7.5 MG IVP (14:32)
--- NOTE | 2023-11-11 18:21 | W.EDPROG ---
Date of service: 11/11/23 Time of Service: 18:21 Medical Decision Making Phoned the patients' contact number and left a message for him to urgently call back the ED for overread phoned to me by Dr. Morgan on a missed pneumothorax on vRAD read from earlier today. Likely needs to return for re-evaluation, small pneumothorax ~10% at R apex of lung and adjacent to heart in lower lung gill, no pneumomediastinum Discharge Plan Disposition Patient Disposition: Home Condition: Stable Discharge Details Clinical Impression: Chest wall contusion Primary Care Provider: Donna Mclaughlin ED Provider: Nevaeh Camargo Home Meds and New Rx's Prescriptions: Continued cholecalciferol (vitamin D3) 25 mcg (1,000 unit) capsule 25 mcg PO DAILY olive leaf extract 250 mg capsule See Rx Instructions PO DAILY Rx Instructions: 250mg daily PO daily; lisinopril 20 mg tablet 20 mg PO DAILY Qty: 90 12RF turmeric root extract 500 mg capsule 500 mg PO DAILY Oligonol PO DAILY hawthorn extract 150 mg capsule 150 mg PO DAILY red yeast rice 600 MG capsule 1 cap PO DAILY Saw [place] Extract (w-zinc) 1 EACH capsule 1 ea PO DAILY Glucos Chond Cplx Advanced 1 EACH tablet 1 ea PO DAILY sildenafil 100 mg tablet See Rx Instructions .ROUTE .COMPLEX Qty: 24 5RF Dose Instruction: TAKE 1 TABLET DAILY Rx Instructions: TAKE 1 TABLET DAILY omeprazole 40 mg capsule,delayed release(DR/EC) See Rx Instructions .ROUTE .COMPLEX Qty: 90 3RF Dose Instruction: TAKE 1 CAPSULE DAILY Rx Instructions: TAKE 1 CAPSULE DAILY Discharge Instructions Instructions: Contusion in Adults (ED) Additional Instructions: Please take oxycodone sparingly as needed for discomfort Take the Flexeril, 5 mg every 8 hours as needed for discomfort, try to take this simultaneously with the oxycodone Make sure you continue to take full inhalation and exhalation, at least 8 times a day to prevent pneumonia Follow-up with Dr. Carrillo, you have hydronephrosis or fluid in both of your kidneys, it looks like you have had this intermittently in the past Please return earlier should you have worsening pain, shortness of breath, or she develop new or worsening complaints Referrals: Rafi Carrillo MD [ [facility] STAFF PHYSICIAN] - Donna Mclaughlin MD, [place] [Primary Care Provider] - Discharge Data Discharge Date/Time-TO BE ENTERED AT DEPARTURE: 11/11/23 14:40
== END 2023-11-11 14:40 | disposition home or self-care (01) ==
PROVIDERS: Emergency Provider Physician Assistant; PCP Family Medicine
DX: S20.211A Contusion of right front wall of thorax, initial encounter (principal); S27.0XXA Traumatic pneumothorax, initial encounter; N13.30 Unspecified hydronephrosis; I10 Essential (primary) hypertension; W51.XXXA Accidental striking against or bumped into by another person, initial encounter; Y93.22 Activity, ice hockey
CPT/HCPCS: 00123; 71250; 80053; 93005; 96374; 96375; 99284; 84484; 85025; 93010; J1170; J1885; J2405

== ENCOUNTER 2023-11-11 18:46 | Emergency (ER) | payer MEDICARE, SELFPAY ==
[2023-11-11] VITALS (14 sets, daily range): BP systolic 155–174; BP diastolic 73–87; PULSE 59–71; RESP 13–23; TEMP 37.1; O2SAT 95–100
--- NOTE | 2023-11-11 18:45 | DI.RAD_ITS ---
Exam(s) XR CHEST 2V PA LATERAL EXAM: XR CHEST 2V PA LATERAL CLINICAL HISTORY: pneumothorax. TECHNIQUE: 2D digital imaging was performed. COMPARISON: No exams were available for comparison FINDINGS: 2 views: Heart size is normal. The mediastinum is not widened. Lungs are clear. No infiltrates nor pleural effusions. There is a tiny right apical pneumothorax. This corresponds to finding on the CT scan. No pleural e ffusions. No fractures evident. IMPRESSION: Small less than 10 percent right apical pneumothorax, this corresponding finding on the CT scan. It does not appear to have increased in size when compared to the prior CT scan earlier today. No lung contusion. No pleural effusion Discussed with ER physician. DATA REPOSITORY: RADIATION DOSE DELIVERED:
--- NOTE | 2023-11-11 19:03 | NUR.NOTE ---
per provider place pt on 10 LPM NR post xray, JACQUELYNJ
--- NOTE | 2023-11-11 19:32 | W.ED.GENAD ---
Discharge Plan Disposition Patient Disposition: Home Condition: Stable Discharge Details Clinical Impression: Pneumothorax on right Primary Care Provider: Donna Mclaughlin ED Provider: Alverto Stanley Home Meds and New Rx's Prescriptions: Continued cholecalciferol (vitamin D3) 25 mcg (1,000 unit) capsule 25 mcg PO DAILY olive leaf extract 250 mg capsule See Rx Instructions PO DAILY Rx Instructions: 250mg daily PO daily; lisinopril 20 mg tablet 20 mg PO DAILY Qty: 90 12RF turmeric root extract 500 mg capsule 500 mg PO DAILY Oligonol PO DAILY hawthorn extract 150 mg capsule 150 mg PO DAILY red yeast rice 600 MG capsule 1 cap PO DAILY Saw [place] Extract (w-zinc) 1 EACH capsule 1 ea PO DAILY Glucos Chond Cplx Advanced 1 EACH tablet 1 ea PO DAILY sildenafil 100 mg tablet See Rx Instructions .ROUTE .COMPLEX Qty: 24 5RF Dose Instruction: TAKE 1 TABLET DAILY Rx Instructions: TAKE 1 TABLET DAILY omeprazole 40 mg capsule,delayed release(DR/EC) See Rx Instructions .ROUTE .COMPLEX Qty: 90 3RF Dose Instruction: TAKE 1 CAPSULE DAILY Rx Instructions: TAKE 1 CAPSULE DAILY Discharge Instructions Instructions: Traumatic Pneumothorax (ED) Additional Instructions: You were seen in the emergency department for your traumatic pneumothorax on the right is very small is in the upper posterior part of your right lung. I had our surgeon Dr. Lucia to look at it, it is reasonable if you would like to return home that you monitor yourself carefully and return for any increasing chest pain especially with shortness of breath, otherwise please return to the ED tomorrow for repeat chest x-ray and we will have a disposition at that time. Please take Tylenol and ibuprofen for pain as needed, you are also found to have incidental hydronephrosis of both kidneys on your CT scan and you may be developing a kidney stone, we did collect a urine sample and we can give the results when you return tomorrow. Referrals: Donna Mclaughlin MD, [place] [Primary Care Provider] - Medical Decision Making This dictation utilizes [id number] dictation software and may contain unedited grammatical errors. 77 y/o M presents to ED today with a chief complaint of called-back for missed pneumothorax on vRAD read earlier today, R apex of lung as 10-15% pneumothorax. Patient was playing hockey, onteb-ol-lyaqa contact, discharged as chest wall contusion, reports no acute worsening since discharge today at 1440. Patients' medical history: smoking history 50 years ago. Family and social history: noncontributory. Pertinent exam findings / vital signs include question some diminished lung sounds R medial sternal border, otherwise no respiratory distress. Differential / pathologies of concern include Pneumothorax, expanding PTX. Diagnostic studies of: -CXR, has not expanded. Interventions of: -10L O2 by NRB. ED Course/Assessment/Plan: Consulted with surgery for OBS decision vs outpatient repeat CXR. Discussed with Dr. 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 He was noted to have bilateral hydronephrosis and has renal stone history- collected UA on discharge, check for microscopic blood, patient will deal with results on return tomorrow. Findings not consistent with expanding pneumothorax, patient has no complaints of urinary obstruction or retention, reasonable to follow with a repeat chest x-ray tomorrow due to the patient's small apical pneumothorax and stable course at home since injury many hours earlier today. Disposition of Pneumothorax on Right. Patient verbalized understanding of the plan and return to ED criteria and engaged in shared decision making. Medical Records Medical records reviewed: Yes I reviewed the patient's medical records. Imaging Data Radiologic Study: Imaging: X-Ray Radiologist's impression: EXAM: XR CHEST 2V PA LATERAL CLINICAL HISTORY: pneumothorax. TECHNIQUE: 2D digital imaging was performed. COMPARISON: No exams were available for comparison FINDINGS: 2 views: Heart size is normal. The mediastinum is not widened. Lungs are clear. No infiltrates nor pleural effusions. There is a tiny right apical pneumothorax. This corresponds to finding on the CT scan. No pleural effusions. No fractures evident. IMPRESSION: Small less than 10 percent right apical pneumothorax, this corresponding finding on the CT scan. It does not appear to have increased in size when compared to the prior CT scan earlier today. No lung contusion. No pleural effusion Discussed with ER physician. Lab Data Labs: 11/11/23 20:15 Urine - Reflex from Ua Urine Culture - Pending Laboratory Tests Range/Units 11/11/23 20:15 Urine Color (Yellow) Yellow Urine Clarity (Clear) Clear Urine pH (5-8) 5.5 Ur Specific [place] (1.005-1.025) >= 1.030 H Urine Protein (Negative) mg/dL Negative Urine Ketones (Negative) mg/dL Negative Urine Blood (Negative) Trace-intact H Urine Nitrite (Negative) Negative Urine Bilirubin (Negative) Negative Urine Urobilinogen (Up to 0.2) mg/dL 0.2 Ur Leukocyte Esterase (Negative) Negative Urine RBC (0-2) HPF 3-5 H Urine WBC (0-5) HPF 3-5 Ur Epithelial Cells (Negative) HPF Rare Urine Crystals (Negative) HPF Negative Urine Bacteria (Negative) HPF Rare Urine Casts (Negative) LPF Negative Urine Mucus (Negative) Trace Ur Culture Indicated? Yes Urine Glucose (Negative) mg/dL Negative HPI General Date/Time Provider Initiated Documentation: 11/11/23 18:52. HPI Narrative: 77 year-old male presents to ED today by POV/ambulating with a chief complaint of called back by myself, was seen earlier today from a chest wall injury during hockey game, wfknk-bo-rodnu contact, discharged as contusion but had a missed pneumothorax on overread phoned to me by Dr. Morgan with onset of injury hours ago, discharged at 1440 today. Quality described as generally no acute worsening while at home, denies shortness of breath, coughing, severe sharp chest pain when at rest, no radiation to hemoptysis, shortness of breath, chest pain endorsed when throwing a ball for his dog- so he stopped and rested the rest of the afternoon. Severity is described as 4-5/10. Palliating factors include took a hot shower when he got home and felt quite a bit better. Provoking factors include nothing specific. Patient not anticoagulated. Related Data Home Medications Medication Instructions Recorded Confirmed [id number] 1 ea PO DAILY 04/01/13 11/11/23 750 mg-100 mg-125 mg-1.65 mg tablet (Glucosamine Chondroit Complx Advan) red yeast rice 600 mg capsule 1 cap PO DAILY 04/01/13 11/11/23 saw palmetto fruit extract-zinc 1 ea PO DAILY 04/01/13 11/11/23 picolinate 160 mg-15 mg capsule (Saw [place] Extract (with zinc)) cholecalciferol (vitamin D3) 25 25 mcg PO DAILY 08/09/21 11/11/23 mcg (1,000 unit) capsule olive leaf extract 250 mg capsule See Rx Instructions PO DAILY 08/09/21 11/11/23 sildenafil 100 mg tablet See Rx Instructions .Route 01/02/22 11/11/23 .COMPLEX #24 tabs lisinopril 20 mg tablet 20 mg PO DAILY #90 tab-caps 02/07/22 11/11/23 omeprazole 40 mg capsule,delayed See Rx Instructions .Route 12/13/22 11/11/23 release .COMPLEX #90 caps Oligonol PO DAILY 08/16/23 08/17/23 hawthorn extract 150 mg capsule 150 mg PO DAILY 08/16/23 11/11/23 turmeric root extract 500 mg 500 mg PO DAILY 08/16/23 11/11/23 capsule Previous Rx's Medication Instructions Recorded sildenafil 100 mg tablet See Rx Instructions .Route 01/02/22 .COMPLEX #24 tabs lisinopril 20 mg tablet 20 mg PO DAILY #90 tab-caps 02/07/22 omeprazole 40 mg capsule,delayed See Rx Instructions .Route 12/13/22 release .COMPLEX #90 caps Allergies Allergy/AdvReac Type Severity Reaction Status Date / Time No Known Allergies Allergy Unverified 11/11/23 18:56 General Stated Complaint: Recheck KODY: 3 Review of Systems All systems reviewed & are unremarkable except as noted in HPI and below PFSH All Active Problems (Updated 11/11/23 @ 20:08 by PAZ Loco) Pneumothorax on right (Acute) Chest wall contusion (Acute) Osteoarthritis (Chronic) s/p tkr 05/01 of left knee Low iron (Chronic 08/14/16) 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) Hyperlipidemia (Chronic 04/02/13) Hemorrhoids (Chronic) Essential hypertension (Chronic) ED (erectile dysfunction) (Chronic) Diverticulosis of colon without diverticulitis (Chronic) BPH (benign prostatic hyperplasia) (Chronic) Physician orders for life-sustaining treatment (POLST) form indicates patient wish for [id number] status (Acute) BPH (benign prostatic hyperplasia) (Chronic) Upper extremity pain (Acute) Anemia (Chronic) Medical History (Updated 11/11/23 @ 20:08 by PAZ Loco) Hx of primary hypertension 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 colonoscopy; 01/22- heme + stool; NEG. STOOL CARDS (3) RETURNED; 01/2008-heme + stool;neg. 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 Peptic ulcer 04/06/14 in his 20's EGD-neg 08/31 Surgical History History of arthroscopy History of knee surgery Status post total knee replacement Status post vasectomy (04/19/15) H/O knee surgery x 3 H/O arthroscopy 11/19/95 left wrist S/P total knee replacement 11/19/12 [facility]; left knee-2012; [facility]-right knee 02/2016 S/P vasectomy 04/19/15 Vasectomy Replacement of total knee joint (04/22/13) [facility]; LEFT KNEE KNEE REPAIR X 3 Arthroscopy (~1995) LEFT WRIST Arthroplasty 03/06/16; RIGHT KNEE; [facility] Family History Mother , AGE 90 Dementia Glaucoma Father , AGE 90 Essential hypertension Hyperlipidemia DJD (degenerative joint disease) HIP Liver failure DIALYSIS Alcohol abuse Maternal Grandmother Cancer Paternal Grandfather No problems noted. Paternal Grandmother No problems noted. Son No problems noted. Son No problems noted. Son No problems noted. Social History (Updated 08/22/23 @ 12:19 by Mari Meléndez) Smoking/Tobacco Use Status: Former Tobacco Use tobacco type: cigarettes Quit Date: 11/19/79 Tobacco: How many years used: 16 Second Hand Exposure: Yes Smoking risk assessment performed?: Yes Alcohol Intake: current Alcohol Intake frequency: a few times a week Alcohol type: beer and hard liquor Drug use: Rarely Substance use type: marijuana Caregiver/Support person: No Household members: spouse Housing: house Do you need help understanding health information?: Rarely Pets and animals: Yes Pets and animals: cat(s), dog(s), horse(s) and farm animals Sexually active: Yes Do you think of yourself as: straight/heterosexual Current gender identity: male What is your relationship status?: How often do you talk on the phone with friends or family?: three or more times per week How often do you get together with friends or relatives?: once per week Do you belong to any clubs or organized social groups?: yes Panel score (0-1 are the most socially isolated patients): 3 What type of physical activity do you participate in: walking, bicycling and other Details: cut wood Duration: 30-45 minutes/day Frequency: 1-2 times per week Riana/Scientology: No preference Special riana needs: No Seatbelt use: always Helmet use: Yes Drive intox or ride w/intox crude oil driver: No Do you feel safe at home: Yes Do you feel safe in your relationship?: Yes Exam Narrative Exam Narrative: GENERAL APPEARANCE: Well-nourished, non-toxic, awake and alert, atraumatic, no acute distress. SKIN: Warm, pink, dry, intact, without rashes/lesions/ulcerations. HEAD: Normocephalic, atraumatic, normal hair distribution for gender/age. EYES: Pupils PERRLA, EOMs intact without nystagmus, normal conjunctiva, no exudates on lids/lashes. ENT: Nares patent, no circumoral cyanosis, no facial swelling NECK: Supple, trachea midline, painless cervical ROM. LUNGS/CHEST: Lungs - absent lung sounds in medial R lung, otherwise CTA, non-labored respirations, normal A/P diameter, symmetrical expansion, no chest wall deformity HEART (CV/PV): Regular rate and rhythm without murmur, no peripheral edema, no JVD. ABDOMEN: Soft, non-distended, no guarding, no tenderness. MSK: Normal ROM, no swelling/deformity to bilateral UEs or LEs, moving all extremities without weakness, no cyanosis, spine midline without tenderness, normal curvature. NEURO: Mental Status AAOx4 - alert to person, place, time, events No facial droop, no forehead involvement. Motor: No focal weakness - strength 5/5 in bilateral UEs and LEs, proximal and distal, symmetric. Sensory: sensation intact to light touch globally. Gait normal: patient ambulated without ataxia into ED room. PSYCH: euthymic, cooperative, pleasant, appropriate speech Course Vital Signs Vital signs: Vital Signs Temperature 37.1 C 12/24/23 18:49 Pulse 62 11/11/23 18:49 Respiratory Rate 20 11/11/23 18:49 Blood Pressure 164/74 H 11/11/23 18:49 Pulse Oximetry 98 11/11/23 18:49 Temperature 37.1 C 11/11/23 18:49 Temperature Source Temporal Artery Scan 11/11/23 18:49 Pulse 65 11/11/23 19:15 Pulse 60 11/11/23 19:20 Respiratory Rate 13 11/11/23 19:20 Respiratory Effort Normal, Non-Labored 11/11/23 18:53 Blood Pressure 157/81 H 11/11/23 19:15 Blood Pressure Mean 103 11/11/23 19:15 Pulse Oximetry 100 11/11/23 19:20 Oxygen Delivery Method Non-Rebreather 11/11/23 19:20 Oxygen Flow Rate 10 11/11/23 19:20 Pain Level 95 11/11/23 18:49 PAWSS Have you Been Recently Intoxicated or Drunk Within the Last 30 days?: No Have you Ever Experienced Previous Episodes of Alcohol Withdrawal?: No Have you ever Experienced Withdrawal Seizures?: No Have you ever Experienced Delirium Tremens(DT)s?: No Have you ever undergone Alcohol Rehabilitation Treatment (i.e, inpt ot outpatient treatment programs)?: No Have you ever Experienced Blackouts?: No Have you ever Combined Alcohol with other Downers within the last 90 days?: No Have you ever Combined Alcohol with any other Substance of Abuse during the last 90 days?: No Positive Blood Alcohol level on Presentation? [PCS.BAL]: No Evidence of Increased Autonomic Activity (i.e. HR>120, tremor, sweating, agitation, nausea)?: No Result: 0
[2023-11-11 20:25] LABS: Bilirubin Negative (Negative); Blood Trace-intact (Negative); Clarity Clear (Clear); Glucose Negative (Negative); Ketones Negative (Negative); Leukocyte Esterase Negative (Negative); Nitrite Negative (Negative); Specific Gravity >= 1.030 (1.005-1.025); Urobilinogen 0.2 mg/dL (Up to 0.2); pH 5.5 (5-8)
[2023-11-11 20:32] LABS: Epithelial Cells Rare HPF (Negative)
[2023-11-11 20:33] LABS: Bacteria Rare HPF (Negative); C & S Indicated? Yes; Casts Negative LPF (Negative); Crystals Negative HPF (Negative); Mucus Trace (Negative)
== END 2023-11-11 20:17 | disposition home or self-care (01) ==
PROVIDERS: Emergency Provider Physician Assistant; PCP Family Medicine
DX: S27.0XXA Traumatic pneumothorax, initial encounter (principal); W51.XXXA Accidental striking against or bumped into by another person, initial encounter; Y93.22 Activity, ice hockey; Y92.39 Other specified sports and athletic area as the place of occurrence of the external cause
CPT/HCPCS: 99283; 71046; 81003; 81015; 87086

== ENCOUNTER 2023-11-12 10:44 | Emergency (ER) | payer MEDICARE, SELFPAY ==
--- NOTE | 2023-11-12 10:45 | DI.RAD_ITS ---
Exam(s) XR CHEST 2V PA LATERAL EXAM: XR CHEST 2V PA LATERAL CLINICAL HISTORY: Pneumothorax recheck. TECHNIQUE: 2D digital imaging was performed. COMPARISON: CT CT CHEST WO from 11/11/2023 CR XR CHEST 2V PA LATERAL from 11/11/2023 FINDINGS: 2 views: Heart size is normal. The mediastinum is not widened. There is platelike atelectasis in the right lower lobe. The previously described small right apical pneumothorax is difficult to visualize on the present study. It certainly has not increased in size. Probably mostly resolved. No findings in the left lung. IMPRESSION: No obvious pneumothorax seen at this time.There is platelike atelectasis in the posterior basal segme nt of the right lower lobe. No pleural effusions. DATA REPOSITORY: RADIATION DOSE DELIVERED:
[2023-11-12 10:48] VITALS: BP 189/70; PULSE 64; RESP 20; TEMP 36.8; O2SAT 98
--- NOTE | 2023-11-12 11:18 | ED.GENADUL_ITS ---
Discharge Plan Disposition Patient Disposition: Home Discharge Details Clinical Impression: Pneumothorax on right, Chest wall contusion Primary Care Provider: Donna Mclaughlin ED Provider: Phillip Maloney Home Meds and New Rx's Prescriptions: Continued cholecalciferol (vitamin D3) 25 mcg (1,000 unit) capsule 25 mcg PO DAILY olive leaf extract 250 mg capsule See Rx Instructions PO DAILY Rx Instructions: 250mg daily PO daily; lisinopril 20 mg tablet 20 mg PO DAILY Qty: 90 12RF turmeric root extract 500 mg capsule 500 mg PO DAILY Oligonol PO DAILY hawthorn extract 150 mg capsule 150 mg PO DAILY red yeast rice 600 MG capsule 1 cap PO DAILY Saw [place] Extract (w-zinc) 1 EACH capsule 1 ea PO DAILY Glucos Chond Cplx Advanced 1 EACH tablet 1 ea PO DAILY sildenafil 100 mg tablet See Rx Instructions .ROUTE .COMPLEX Qty: 24 5RF Dose Instruction: TAKE 1 TABLET DAILY Rx Instructions: TAKE 1 TABLET DAILY omeprazole 40 mg capsule,delayed release(DR/EC) See Rx Instructions .ROUTE .COMPLEX Qty: 90 3RF Dose Instruction: TAKE 1 CAPSULE DAILY Rx Instructions: TAKE 1 CAPSULE DAILY Discharge Instructions Instructions: Traumatic Pneumothorax (ED) Additional Instructions: Per general surgeons request it is recommended that you take it easy over the next week and do not perform any strenuous activities as this may worsen your condition. If you have any new or significant worsening of shortness of breath, chest pain, or discomfort you should return immediately to the emergency department for reassessment or call 911 You may continue to take ykur-xbh-hjvspuo NSAIDs or avgc-yvp-vfyzmtj medication as needed for pain and discomfort. It was recommended by general surgery office that you follow-up with within the next 3 days for recheck. Referrals: [facility] [Provider Group] - 3 days (For recheck of your pneumothorax) Discharge Data Discharge Date/Time-TO BE ENTERED AT DEPARTURE: 11/12/23 11:43 Medical Decision Making Patient presenting to the emergency department for recheck of pneumothorax. Patient had traumatic pneumothorax yesterday and was discharged home but with return precautions to return today for reassessment of pneumothorax. Patient states that shortness of breath has significantly improved, does state some lateral rib pain secondary to the trauma but states overall symptoms have been improving since yesterday. Physical exam shows diminished breath sounds in the right upper lobe otherwise noncontributory exam with patient stable in appearance, no tachypnea, no hypoxia, no tachycardia and very well in appearance with no signs of respiratory distress. Will plan on performing chest x-ray for comparison but otherwise no interventions needed at this time. Chest x-ray shows small residual pneumothorax. Did speak to the general surgeon on-call who did review patient's imaging yesterday. Given that patient is improving, improving shortness of breath and chest pain we will continue outpatient monitoring with return precautions discussed. After discussion of diagnosis and plan of care patient has no further needs, questions, or concerns and states clear understanding to return to the emergency department for any worsening symptoms. This documentation was generated using [employer] system, please disregard any oddities of phrase or misspellings. Imaging Data Radiologic Study: Imaging: X-Ray Radiologist's impression: Exam(s) Addendum created by Mohsen Richey MD on 11/12/2023 11:45:13 AM EST: ADDENDUM: Report of prior study from 1 day prior is now provided and reviewed. The trace right apical pneumothorax is similar. Initial report created on 11/12/2023 11:42:19 AM EST: PROCEDURE INFORMATION: Exam: XR Chest Exam date and time: 11/12/2023 11:01 AM Age: 77 years old Clinical indication: Other: Pneumothorax recheck TECHNIQUE: Imaging protocol: Radiologic exam of the chest. Views: 2 views. COMPARISON: 1. CR XR CHEST 2V PA LATERAL 11/11/2023 7:12 PM (report not provided) 2. CT CHEST WO 11/11/2023 1:18 PM FINDINGS: Lungs: Unremarkable. No consolidation. Pleural spaces: Question trace residual right apical pneumothorax with 6 mm pleural separation. No left pneumothorax. The costophrenic angles are sharp. Heart/Mediastinum: The cardiomediastinal silhouette is fairly stable in appearance. Bones/joints: Degenerative changes again involve the spine. IMPRESSION: Question residual trace right apical pneumothorax, as on chest CT and radiographs of 1 day prior. Dictated and Authenticated by: Mohsen Richey MD. HPI General Mode of arrival: ambulatory . Date/Time Provider Initiated Documentation: 11/12/23 10:45 . Limitations to Documentation: no limitations . Information obtained by: patient and RN notes reviewed . History of Present Illness 77 year old M presents to the emergency department with the chief complaint of Repeat chest x-ray, stable pneumothorax, Patient started experiencing this day(s) (1) and it has been other (Improving). Patient notes no other symptoms.. Related Data Home Medications Medication Instructions Recorded Confirmed [id number] 1 ea PO DAILY 04/01/13 11/12/23 750 mg-100 mg-125 mg-1.65 mg tablet (Glucosamine Chondroit Complx Advan) red yeast rice 600 mg capsule 1 cap PO DAILY 04/01/13 11/12/23 saw palmetto fruit extract-zinc 1 ea PO DAILY 04/01/13 11/12/23 picolinate 160 mg-15 mg capsule (Saw [place] Extract (with zinc)) cholecalciferol (vitamin D3) 25 25 mcg PO DAILY 08/09/21 11/12/23 mcg (1,000 unit) capsule olive leaf extract 250 mg capsule See Rx Instructions PO DAILY 08/09/21 11/12/23 sildenafil 100 mg tablet See Rx Instructions .Route 01/02/22 11/12/23 .COMPLEX #24 tabs lisinopril 20 mg tablet 20 mg PO DAILY #90 tab-caps 02/07/22 11/12/23 omeprazole 40 mg capsule,delayed See Rx Instructions .Route 12/13/22 11/12/23 release .COMPLEX #90 caps Oligonol PO DAILY 08/16/23 08/17/23 hawthorn extract 150 mg capsule 150 mg PO DAILY 08/16/23 11/12/23 turmeric root extract 500 mg 500 mg PO DAILY 08/16/23 11/12/23 capsule Previous Rx's Medication Instructions Recorded sildenafil 100 mg tablet See Rx Instructions .Route 01/02/22 .COMPLEX #24 tabs lisinopril 20 mg tablet 20 mg PO DAILY #90 tab-caps 02/07/22 omeprazole 40 mg capsule,delayed See Rx Instructions .Route 12/13/22 release .COMPLEX #90 caps Allergies Allergy/AdvReac Type Severity Reaction Status Date / Time No Known Allergies Allergy Unverified 11/12/23 10:53 General Stated Complaint: Recheck KODY: 4 Review of Systems Cardiovascular Cardiovascular: Denies chest pain, Denies dyspnea and Denies dyspnea on exertion Respiratory Respiratory: Reports as per HPI, Reports pain on inspiration, Denies dyspnea and Denies dyspnea on exertion Musculoskeletal Musculoskeletal: Reports other (Right lateral rib pain) PFSH All Active Problems (Updated 11/12/23 @ 11:36 by Phillip Maloney NP) Pneumothorax on right (Acute) Chest wall contusion (Acute) Osteoarthritis (Chronic) s/p tkr 05/01 of left knee Low iron (Chronic 08/14/16) 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) Hyperlipidemia (Chronic 04/02/13) Hemorrhoids (Chronic) Essential hypertension (Chronic) ED (erectile dysfunction) (Chronic) Diverticulosis of colon without diverticulitis (Chronic) BPH (benign prostatic hyperplasia) (Chronic) Physician orders for life-sustaining treatment (POLST) form indicates patient wish for hd-msg-adghguosiwo status (Acute) BPH (benign prostatic hyperplasia) (Chronic) Upper extremity pain (Acute) Anemia (Chronic) Medical History Hx of primary hypertension 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 colonoscopy; 01/22- heme + stool; NEG. STOOL CARDS (3) RETURNED; 01/2008-heme + stool;neg. 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 Peptic ulcer 04/06/14 in his 20's EGD-neg 08/31 Surgical History History of arthroscopy History of knee surgery Status post total knee replacement Status post vasectomy (04/19/15) H/O knee surgery x 3 H/O arthroscopy 11/19/95 left wrist S/P total knee replacement 11/19/12 LR; left knee-2012; LR-right knee 02/2016 S/P vasectomy 04/19/15 Vasectomy Replacement of total knee joint (04/22/13) LR; LEFT KNEE KNEE REPAIR X 3 Arthroscopy (~1995) LEFT WRIST Arthroplasty 03/06/16; RIGHT KNEE; [facility] Family History Mother , AGE 90 Dementia Glaucoma Father , AGE 90 Essential hypertension Hyperlipidemia DJD (degenerative joint disease) HIP Liver failure DIALYSIS Alcohol abuse Maternal Grandmother Cancer Paternal Grandfather No problems noted. Paternal Grandmother No problems noted. Son No problems noted. Son No problems noted. Son No problems noted. Social History Smoking/Tobacco Use Status: Former Tobacco Use tobacco type: cigarettes Quit Date: 11/19/79 Tobacco: How many years used: 16 Second Hand Exposure: Yes Smoking risk assessment performed?: Yes Alcohol Intake: current Alcohol Intake frequency: a few times a week Alcohol type: beer and hard liquor Drug use: Rarely Substance use type: marijuana Caregiver/Support person: No Household members: spouse Housing: house Do you need help understanding health information?: Rarely Pets and animals: Yes Pets and animals: cat(s), dog(s), horse(s) and farm animals Sexually active: Yes Do you think of yourself as: straight/heterosexual Current gender identity: male What is your relationship status?: How often do you talk on the phone with friends or family?: three or more times per week How often do you get together with friends or relatives?: once per week Do you belong to any clubs or organized social groups?: yes Panel score (0-1 are the most socially isolated patients): 3 What type of physical activity do you participate in: walking, bicycling and other Details: cut wood Duration: 30-45 minutes/day Frequency: 1-2 times per week Riana/Taoism: No preference Special riana needs: No Seatbelt use: always Helmet use: Yes Drive intox or ride w/intox yard truck driver: No Do you feel safe at home: Yes Do you feel safe in your relationship?: Yes Exam Const General: cooperative, no acute distress and not ill appearing Orientation: alert, awake and oriented x3 HENMT Mouth: moist mucous membranes Resp Effort & Inspection: normal respiratory effort, able to speak in complete sentences and no respiratory distress Auscultation: diminished lung sounds on the right in the upper lung gill Cardio Rate: regular rate Rhythm: regular rhythm Skin General skin exam: no rashes or lesions noted Neuro General: patient alert, patient awake, patient oriented x3, moves all extrem ities and no focal motor deficits Sensory Exam: no sensory deficits noted Course Vital Signs Vital signs: Vital Signs Temperature 36.8 C 11/12/23 10:48 Pulse 64 11/12/23 10:48 Respiratory Rate 20 11/12/23 10:48 Blood Pressure 189/70 H 11/12/23 10:48 Pulse Oximetry 98 11/12/23 10:48 Temperature 36.8 C 11/12/23 10:48 Temperature Source Skin 11/12/23 10:48 Pulse 64 11/12/23 10:48 Respiratory Rate 20 11/12/23 10:48 Blood Pressure 189/70 H 11/12/23 10:48 Pulse Oximetry 98 11/12/23 10:48 Oxygen Delivery Method Room Air 11/12/23 10:48 Oxygen Flow Rate 0 11/12/23 10:48 Pain Level 2 11/12/23 10:48
--- NOTE | 2023-11-12 11:42 | DI.VRAD_ITS ---
Addendum created by Mohsen Richey MD on 11/12/2023 11:45:13 AM EST: ADDENDUM: Report of prior study from 1 day prior is now provided and reviewed. The trace right apical pneumothorax is similar. Initial report created on 11/12/2023 11:42:19 AM EST: PROCEDURE INFORMATION: Exam: XR Chest Exam date and time: 11/12/2023 11:01 AM Age: 77 years old Clinical indication: Other: Pneumothorax recheck TECHNIQUE: Imaging protocol: Radiologic exam of the chest. Views: 2 views. COMPARISON: 1. CR XR CHEST 2V PA LATERAL 11/11/2023 7:12 PM (report not provided) 2. CT CHEST WO 11/11/2023 1:18 PM FINDINGS: Lungs: Unremarkable. No consolidation. Pleural spaces: Question trace residual right apical pneumothorax with 6 mm pleural separation. No left pneumothorax. The costophrenic angles are sharp. Heart/Mediastinum: The cardiomediastinal silhouette is fairly stable in appearance. Bones/joints: Degenerative changes again involve the spine. IMPRESSION: Question residual trace right apical pneumothorax, as on chest CT and radiographs of 1 day prior. Dictated and Authenticated by: Mohsen Richey MD. Ordering:CATARINO Fisher MD
== END 2023-11-12 11:43 | disposition home or self-care (01) ==
PROVIDERS: Emergency Provider Nurse Practitioner Family; PCP Family Medicine
DX: J93.83 Other pneumothorax (principal)
CPT/HCPCS: 99283; 71046

== ENCOUNTER 2023-11-15 08:53 | Emergency (ER) | payer MEDICARE, SELFPAY ==
[2023-11-15 08:56] VITALS: BP 204/96; PULSE 63; RESP 16; TEMP 36.5; O2SAT 99
--- NOTE | 2023-11-15 09:00 | DI.RAD_ITS ---
Exam(s) XR CHEST 2V PA LATERAL EXAM: XR CHEST 2V PA LATERAL CLINICAL HISTORY: Right sided Pneumothorax, re-eval TECHNIQUE: 2D digital imaging was performed. COMPARISON: CR XR CHEST 2V PA LATERAL from 11/11/2023 CR,XR XR CHEST 2V PA LATERAL from 11/12/2023 FINDINGS: HEART: Normal size. Aorta: Not dilated. PULMONARY VASCULATURE: Normal. LUNGS: Clear. No pneumothorax visible. PLEURAL SPACE: No pleural effusion or pneumothorax. BONE:Degenerative changes. Unremarkable for age. Compression fractures. No visible rib fractures. Soft tissues: Unremarkable. IMPRESSION: No evidence of pneumothorax. DATA REPOSITORY: RADIATION DOSE DELIVERED:
--- NOTE | 2023-11-15 09:11 | ED.GENADUL_ITS ---
Discharge Plan Disposition Patient Disposition: Home Discharge Details Primary Care Provider: Donna Mclaughlin ED Provider: Patricia Sanders Home Meds and New Rx's Prescriptions: Continued cholecalciferol (vitamin D3) 25 mcg (1,000 unit) capsule 25 mcg PO DAILY olive leaf extract 250 mg capsule See Rx Instructions PO DAILY Rx Instructions: 250mg daily PO daily; lisinopril 20 mg tablet 20 mg PO DAILY Qty: 90 12RF turmeric root extract 500 mg capsule 500 mg PO DAILY Oligonol PO DAILY hawthorn extract 150 mg capsule 150 mg PO DAILY red yeast rice 600 MG capsule 1 cap PO DAILY Saw Seligman Extract (w-zinc) 1 EACH capsule 1 ea PO DAILY Glucos Chond Cplx Advanced 1 EACH tablet 1 ea PO DAILY sildenafil 100 mg tablet See Rx Instructions .ROUTE .COMPLEX Qty: 24 5RF Dose Instruction: TAKE 1 TABLET DAILY Rx Instructions: TAKE 1 TABLET DAILY omeprazole 40 mg capsule,delayed release(DR/EC) See Rx Instructions .ROUTE .COMPLEX Qty: 90 3RF Dose Instruction: TAKE 1 CAPSULE DAILY Rx Instructions: TAKE 1 CAPSULE DAILY Discharge Instructions Instructions: Traumatic Pneumothorax (ED) Additional Instructions: At this time the pneumothorax is not visualized on the chest x-ray. Please return for any worsening shortness of breath, worsening chest pain or concerns. Of note your blood pressure is high today. Please discuss this with your primary care provider regarding if your blood pressure medication needs to be increased. Follow up with primary care provider in 3-5 days if needed. Return to ED sooner if any worsening or concerns. Increase oral fluids. Please take Tylenol or Ibuprofen with food every 4-6 hours as needed for pain and swelling. Referrals: Donna Mclaughlin MD, [place] [Primary Care Provider] - 1 week Discharge Data Discharge Date/Time-TO BE ENTERED AT DEPARTURE: 11/15/23 09:47 Medical Decision Making 78-year-old male presents for recheck he was seen 2 days ago for a right apical pneumothorax which was seen on CT on 1225 measuring approximately 15 to 20%. He initially was hit in the right side of the chest during hockey. He reports no increase shortness of breath he does still have some residual right-sided chest pain. He is speaking in full sentences lungs are clear to auscultation bilaterally. No increased work of breathing no retractions. He does have a past medical history of hypertension does have some hypertension upon arrival., Peptic ulcer disease. Surgical history includes knee replacements. 2 view chest x-ray ordered. I did discuss with patient that if this is unchanged that only need for follow-up is if he has symptoms including increased shortness of breath increased worsening chest pain he verbalizes understanding. Chest x-ray shows no visible pneumothorax. Patient is asymptomatic however he is hypertensive we will have staff internist office based only recheck prior to discharge. Will discuss this with patient and have him follow-up with PCP for any further concerns. This text was generated using Retention [employer]ation system, please disregard any oddities of phrase or misspellings. Imaging Data Radiologic Study: Imaging: X-Ray Radiologist's impression: EXAM: XR CHEST 2V PA LATERAL CLINICAL HISTORY: Right sided Pneumothorax, re-eval TECHNIQUE: 2D digital imaging was performed. COMPARISON: CR XR CHEST 2V PA LATERAL from 11/11/2023 CR,XR XR CHEST 2V PA LATERAL from 11/12/2023 FINDINGS: HEART: Normal size. Aorta: Not dilated. PULMONARY VASCULATURE: Normal. LUNGS: Clear. No pneumothorax visible. PLEURAL SPACE: No pleural effusion or pneumothorax. BONE:Degenerative changes. Unremarkable for age. Compression fractures. No visible rib fractures. Soft tissues: Unremarkable. IMPRESSION: No evidence of pneumothorax. HPI General Mode of arrival: ambulatory . Date/Time Provider Initiated Documentation: 11/15/23 08:58 . Limitations to Documentation: no limitations . Information obtained by: patient, RN notes reviewed and old records reviewed . HPI Narrative: 78-year-old male presents for recheck he was seen 2 days ago for a right apical pneumothorax which was seen on CT on 1225 measuring approximately 15 to 20%. He initially was hit in the right side of the chest during hockey. He reports no increase shortness of breath he does still have some residual right-sided chest pain. He is speaking in full sentences lungs are clear to auscultation bilaterally. No increased work of breathing no retractions. He does have a pa st medical history of hypertension does have some hypertension upon arrival., Peptic ulcer disease. Surgical history includes knee replacements. Related Data Home Medications Medication Instructions Recorded Confirmed [id number] 1 ea PO DAILY 04/01/13 11/15/23 750 mg-100 mg-125 mg-1.65 mg tablet (Glucosamine Chondroit Complx Advan) red yeast rice 600 mg capsule 1 cap PO DAILY 04/01/13 11/15/23 saw palmetto fruit extract-zinc 1 ea PO DAILY 04/01/13 11/15/23 picolinate 160 mg-15 mg capsule (Saw Seligman Extract (with zinc)) cholecalciferol (vitamin D3) 25 25 mcg PO DAILY 08/09/21 11/15/23 mcg (1,000 unit) capsule olive leaf extract 250 mg capsule See Rx Instructions PO DAILY 08/09/21 11/15/23 sildenafil 100 mg tablet See Rx Instructions .Route 01/02/22 11/15/23 .COMPLEX #24 tabs lisinopril 20 mg tablet 20 mg PO DAILY #90 tab-caps 02/07/22 11/15/23 omeprazole 40 mg capsule,delayed See Rx Instructions .Route 12/13/22 11/15/23 release .COMPLEX #90 caps Oligonol PO DAILY 08/16/23 08/17/23 hawthorn extract 150 mg capsule 150 mg PO DAILY 08/16/23 11/15/23 turmeric root extract 500 mg 500 mg PO DAILY 08/16/23 11/15/23 capsule Previous Rx's Medication Instructions Recorded sildenafil 100 mg tablet See Rx Instructions .Route 01/02/22 .COMPLEX #24 tabs lisinopril 20 mg tablet 20 mg PO DAILY #90 tab-caps 02/07/22 omeprazole 40 mg capsule,delayed See Rx Instructions .Route 12/13/22 release .COMPLEX #90 caps Allergies Allergy/AdvReac Type Severity Reaction Status Date / Time No Known Allergies Allergy Unverified 11/15/23 09:01 General Stated Complaint: Recheck KODY: 3 Review of Systems All systems reviewed & are unremarkable except as noted in HPI and below PFSH All Active Problems Pneumothorax on right (Acute) Chest wall contusion (Acute) Osteoarthritis (Chronic) s/p tkr 05/01 of left knee Low iron (Chronic 08/14/16) 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) Hyperlipidemia (Chronic 04/02/13) Hemorrhoids (Chronic) Essential hypertension (Chronic) ED (erectile dysfunction) (Chronic) Diverticulosis of colon without diverticulitis (Chronic) BPH (benign prostatic hyperplasia) (Chronic) Physician orders for life-sustaining treatment (POLST) form indicates patient wish for ln-qet-nodqplhbzay status (Acute) BPH (benign prostatic hyperplasia) (Chronic) Upper extremity pain (Acute) Anemia (Chronic) Medical History Hx of primary hypertension 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 colonoscopy; 01/22- heme + stool; NEG. STOOL CARDS (3) RETURNED; 01/2008-heme + stool;neg. 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 Peptic ulcer 04/06/14 in his 's EGD-neg 08/31 Surgical History History of arthroscopy History of knee surgery Status post total knee replacement Status post vasectomy (04/19/15) H/O knee surgery x 3 H/O arthroscopy 11/19/95 left wrist S/P total knee replacement 11/19/12 [facility]; left knee-2012; [facility]-right knee 02/2016 S/P vasectomy 04/19/15 Vasectomy Replacement of total knee joint (04/22/13) [facility]; LEFT KNEE KNEE REPAIR X 3 Arthroscopy (~1995) LEFT WRIST Arthroplasty 03/06/16; RIGHT KNEE; [facility] Family History Mother , AGE 90 Dementia Glaucoma Father , AGE 90 Essential hypertension Hyperlipidemia DJD (degenerative joint disease) HIP Liver failure DIALYSIS Alcohol abuse Maternal Grandmother Cancer Paternal Grandfather No problems noted. Paternal Grandmother No problems noted. Son No problems noted. Son No problems noted. Son No problems noted. Social History Smoking/Tobacco Use Status: Former Tobacco Use tobacco type: cigarettes Quit Date: 11/19/79 Tobacco: How many years used: 16 Second Hand Exposure: Yes Smoking risk assessment performed?: Yes Alcohol Intake: current Alcohol Intake frequency: a few times a week Alcohol type: beer and hard liquor Drug use: Rarely Substance use type: marijuana Caregiver/Support person: No Household members: spouse Housing: house Do you need help understanding health information?: Rarely Pets and animals: Yes Pets and animals: cat(s), dog(s), horse(s) and farm animals Sexually active: Yes Do you think of yourself as: straight/heterosexual Current gender identity: male What is your relationship status?: How often do you talk on the phone with friends or family?: three or more times per week How often do you get together with friends or relatives?: once per week Do you belong to any clubs or organized social groups?: yes Panel score (0-1 are the most socially isolated patients): 3 What type of physical activity do you participate in: walking, bicycling and other Details: cut wood Duration: 30-45 minutes/day Frequency: 1-2 times per week Riana/Restorationist: No preference Special riana needs: No Seatbelt use: always Helmet use: Yes Drive intox or ride w/intox dumpcart driver: No Do you feel safe at home: Yes Do you feel safe in your relationship?: Yes Exam Narrative Exam Narrative: Constitutional: Alert and oriented x3. Appears stated age. Normal body habitus. Head: Normocephalic, no trauma. Chest: RRR, Normal S1, S2, distal pulses intact. Resp: Lungs clear to auscultation bilaterally, no wheezes, rales, or rhonchi. Musculoskeletal: Normal gait, 5/5 strength to all four extremities. Skin: No suspicious rashes or lesions. Capillary refill less than 2 sec. Course Vital Signs Vital signs: Vital Signs Temperature 36.5 C 11/15/23 08:56 Pulse 63 11/15/23 08:56 Respiratory Rate 16 11/15/23 08:56 Blood Pressure 204/96 H 11/15/23 08:56 Pulse Oximetry 99 11/15/23 08:56 Temperature 36.5 C 11/15/23 08:56 Temperature Source Temporal Artery Scan 11/15/23 08:56 Pulse 63 11/15/23 08:56 Respiratory Rate 16 11/15/23 08:56 Respiratory Effort Normal, Non-Labored 11/15/23 09:02 Blood Pressure 204/96 H 11/15/23 08:56 Blood Pressure Position Sitting 11/15/23 08:56 Pulse Oximetry 99 11/15/23 08:56 Oxygen Delivery Method Room Air 11/15/23 08:56 Oxygen Flow Rate 0 11/15/23 08:56 PAWSS Have you Been Recently Intoxicated or Drunk Within the Last 30 days?: No Have you Ever Experienced Previous Episodes of Alcohol Withdrawal?: No Have you ever Experienced Withdrawal Seizures?: No Have you ever Experienced Delirium Tremens(DT)s?: No Have you ever undergone Alcohol Rehabilitation Treatment (i.e, inpt ot outpatient treatment programs)?: No Have you ever Experienced Blackouts?: No Have you ever Combined Alcohol with other Downers within the last 90 days?: No Have you ever Combined Alcohol with any other Substance of Abuse during the last 90 days?: No Positive Blood Alcohol level on Presentation? [PCS.BAL]: No Evidence of Increased Autonomic Activity (i.e. HR>120, tremor, sweating, agitation, nausea)?: No Result: 0
[2023-11-15 09:44] VITALS: BP 178/92
== END 2023-11-15 09:47 | disposition home or self-care (01) ==
PROVIDERS: Emergency Provider Registered Nurse Emergency; PCP Family Medicine
DX: S27.0XXD Traumatic pneumothorax, subsequent encounter (principal); I10 Essential (primary) hypertension; X58.XXXD Exposure to other specified factors, subsequent encounter
CPT/HCPCS: 99283; 71046; 99282

== ENCOUNTER → 2024-01-29 13:48 | Outpatient (BNVA) | payer MEDICARE, SELFPAY | PROVIDERS: PCP Family Medicine; Referring Provider Family Medicine; Visit Provider Urology | DX: N20.0 Calculus of kidney (principal); N40.0 Benign prostatic hyperplasia without lower urinary tract symptoms | CPT/HCPCS: 76775 ==

== ENCOUNTER 2024-07-31 02:19 | Outpatient (CLI) | payer MEDICARE, SELFPAY ==
--- NOTE | 2024-07-31 09:34 | DI.RAD_ITS ---
Exam(s) XR LUMBAR SPINE COMPLETE EXAM: XR LUMBAR SPINE COMPLETE CLINICAL HISTORY: lt low back pain, sciatica,m54.42. TECHNIQUE: 2D digital imaging was performed. Five views. COMPARISON: CR,XR XR LUMBAR SPINE COMPLETE from 12/18/2020 FINDINGS: BONES: No fracture or destructive lesion. Vertebral body heights are maintained. Prominent facet h ypertrophy identified . DISKS: Severe narrowing of the L1-2, L2-3 and L5-S1 disc spaces. Prominent endplate osteophytes at these levels. Mild narrowing of the L3-4 disc space and moderate narrowing of the L4-5 disc space. Finding similar to prior exam. ALIGNMENT: Lumbar spinal alignment is within normal limits. SOFT TISSUE: Normal. IMPRESSION: Advanced degenerative changes throughout the lumbar spine. DATA REPOSITORY: RADIATION DOSE DELIVERED:
== END 2024-07-31 02:39 ==
LOC: DI 02:19
PROVIDERS: PCP Family Medicine; Visit Provider Family Medicine
DX: M51.36 Other intervertebral disc degeneration, lumbar region (principal)
CPT/HCPCS: 72110

== ENCOUNTER 2024-08-06 02:19 | Outpatient (CLI) | payer MEDICARE, SELFPAY ==
--- NOTE | 2024-08-06 10:45 | DI.MRI_ITS ---
Exam(s) MR LUMBAR SPINE WO EXAM: MR LUMBAR SPINE WO CLINICAL HISTORY: left foot drop,ddd lumbar, spinal stenosis,m21.372,m48.061,m51.36. TECHNIQUE: Multiplanar multisequence MRI of the Lumbar spine was performed. COMPARISON: CR XR LUMBAR SPINE COMPLETE from 07/31/2024 FINDINGS: Conus medullaris is at L1-2 level.. There is no evidence of conus mass nor subjacent clumping of int rathecal nerve roots to suggest arachnoiditis. The distal thecal sac appears unremarkable.There is n o evidence of Tarlov intrasacral cysts nor other significant findings within the sacral canal Bones:There are no fractures nor ominous osseous lesions in the lumbar vertebral bodies and visualize d sacrum. There is absence of the normal lordotic curvature of lumbar spine. This is related to mul tiple the level degenerative change. With respect to the individual levels... T11-T12: There is element of anterolisthesis of T11 upon T12 seen in the peripheral aspect of the fie ld of view. Mild canal stenosis at this level. This level is not included on the axial images. T12-L1: Unremarkable L1-2: This level exhibits advanced chronic uniform disc height loss. Anterior osseous lipping noted. Posteriorly there is broad relatively symmetrical annular bulging which extends into the floor of t he exiting neural foramina bilaterally but without prominent foraminal stenosis on either side. Ther e is mild central canal stenosis. Mild degenerative changes in both facet joints. L2-3: This level also exhibits advanced chronic uniform disc space narrowing and there are Modic type 2 sub endplate fatty marrow changes. Posteriorly there is posterior bony ridging and annular bulgin g but without a dominant disc herniation. There is moderate-severe central spinal canal stenosis at this level. Mild-moderate right-sided foraminal stenosis. Minimal left foraminal stenosis. Moderat e-severe bilateral facet arthropathy. L3-4: This level exhibits moderate disc space narrowing, slightly more prominent on the left side. P osteriorly there is broad annular bulging and there is severe central spinal canal stenosis due to br oad annular bulging, short AP dimensions of the pedicles of and degenerative facet arthropathy as wel l as mild ligamentum flavum hypertrophy. L4-5: This level exhibits mild-moderate disc space narrowing, slightly more so on the left side. The re is broad symmetrical annular bulging. There is mild central spinal canal stenosis. No dominant d isc herniation. There is moderate foraminal stenosis on the left side due to the asymmetry. There i s no significant foraminal stenosis on the right side at this level. There is significant bilateral facet arthropathy. L5-S1: This level exhibits chronic advanced disc space narrowing in uniform fashion. Posteriorly the re is slightly asymmetric annular bulging more so on the right than left. There is mild central juan l stenosis. No dominant disc herniation. There is bilateral facet arthropathy. There is mild-moder ate bilateral foraminal stenosis. Soft tissues: There are benign cysts noted in both kidneys. The largest is in the superior pole of the right kidney and measures 4 cm. IMPRESSION: 1. Multilevel chronic degenerative disc disease and degenerative changes as described per individual level above. 2. Multilevel central spinal canal stenosis which is most severe at L3-4 level. 3. Multilevel asymmetric foraminal stenosis. 4. Multilevel facet arthropathy. 5. No significant osseous lesions. DATA REPOSITORY:
== END 2024-08-06 02:39 ==
LOC: DI 02:19
PROVIDERS: PCP Family Medicine; Visit Provider Family Medicine
DX: M48.061 Spinal stenosis, lumbar region without neurogenic claudication; M21.372 Foot drop, left foot
CPT/HCPCS: 72148

== ENCOUNTER → 2024-08-15 08:25 | Outpatient (BNVA) | payer MEDICARE, SELFPAY | PROVIDERS: PCP Family Medicine; Referring Provider Family Medicine; Visit Provider Urology | DX: N20.0 Calculus of kidney (principal); N40.0 Benign prostatic hyperplasia without lower urinary tract symptoms; Z87.442 Personal history of urinary calculi | CPT/HCPCS: 76775 ==

== ENCOUNTER 2024-09-16 09:00 | Outpatient (CLI) | payer MEDICARE, SELFPAY ==
[2024-09-16 12:18] LABS: HCT 43.8 % (40.0-50.0); HGB 14.3 g/dL (13.5-17.5); MCH 30.3 pg (27.0-33.0); MCHC 32.6 % (32.0-36.0); MCV 93 fL (80-95); MPV 9.5 fL (8.0-11.0); Platelet Count 239 10^3/uL (130-400); RBC 4.72 10^6/uL (4.36-5.78); RDW 14.3 % (11.8-14.1); RDW-SD 49.4 fL; WBC 4.65 10^3/uL (4.4-10.8)
[2024-09-16 12:32] LABS: Iron 127 ug/dL (65-175)
[2024-09-16 12:33] LABS: ALT 40 U/L (16-63); AST 20 U/L (15-37); Alkaline Phosphatase 67 U/L (46-116); Anion Gap 8.9 mmol/L (3-11); BUN 24 mg/dL (7-18); Bilirubin, Total 0.59 mg/dL (0.2-1.0); CO2 29.1 mmol/L (21.0-32.0); CREATININE 1.2 mg/dL (0.70-1.30); Calcium 9.5 mg/dL (8.5-10.1); Calculated LDL 166 mg/dL (<100); Chloride 106 mmol/L (98-107); Cholesterol 255 mg/dL (<200); Estimated GFR 62.67 (mL/min/1.73m2); Glucose 78 mg/dL (74-106); HDL Cholesterol 63 mg/dL (40-60); Potassium 3.9 mmol/L (3.5-5.1); Sodium 144 mmol/L (136-145); Total Protein 7.6 g/dL (6.4-8.2); Triglyceride 131 mg/dL (<150)
[2024-09-16 19:53] LABS: Hepatitis C Ab w Rflx HCV PCR Negative (Negative)
== END 2024-09-16 09:01 | disposition home or self-care (01) ==
LOC: LOS 09:00
PROVIDERS: PCP Family Medicine; Referring Provider Family Medicine; Visit Provider Family Medicine
DX: D50.9 Iron deficiency anemia, unspecified (principal); I10 Essential (primary) hypertension; Z11.59 Encounter for screening for other viral diseases; Z13.6 Encounter for screening for cardiovascular disorders; M21.372 Foot drop, left foot; M48.061 Spinal stenosis, lumbar region without neurogenic claudication; M48.062 Spinal stenosis, lumbar region with neurogenic claudication
CPT/HCPCS: 36415; 80053; 80061; 85027; 86803; 83540

== ENCOUNTER 2024-09-22 01:44 | Outpatient (CLI) | payer MEDICARE, SELFPAY ==
--- NOTE | 2024-09-22 06:30 | DI.US_ITS ---
Exam(s) US AAA SCREENING EXAM: US AAA SCREENING CLINICAL HISTORY: screening for aaa,z13.6 COMPARISON: CT CT RENAL COLIC WO from 04/21/2022 US POCUS EXAM from 08/15/2024 FINDINGS: Abdominal Aorta: Proximal: 2.4 x 2.4 cm Mid: 2.0 x 2.0 cm Distal: 1.8 x 1.8 cm Iliac's: Right: 1.3 x 1.4 cm Left: 1.4 x 1.3 cm IMPRESSION: No evidence of abdominal aortic aneurysm. DATA REPOSITORY:
== END 2024-09-22 02:04 ==
LOC: DI 01:44
PROVIDERS: PCP Family Medicine; Visit Provider Family Medicine
DX: Z13.6 Encounter for screening for cardiovascular disorders (principal)
CPT/HCPCS: 76706

== ENCOUNTER 2024-09-30 14:17 | Outpatient (CLI) | payer MEDICARE, SELFPAY ==
--- NOTE | 2024-09-30 06:00 | DI.RAD_ITS ---
Exam(s) XR PAIN CLINIC LUMBAR SP 2V EXAM: XR PAIN CLINIC LUMBAR SP 2V CLINICAL HISTORY: Dx: Lumbar Radiculopathy. TECHNIQUE: Fluoroscopy was provided for the referring physician for guidance with performing pain cl inic injection procedure. COMPARISON: No exams were available for comparison FINDINGS: Please see procedure note for details. Fluoro time: 28.8 seconds RADIATION DOSE DELIVERED: Kar=10.97 mGy
[2024-09-30 14:22] VITALS: BP 136/86; PULSE 70; RESP 20; TEMP 36.6; O2SAT 97
--- NOTE | 2024-09-30 14:43 | PDOC.PAIN ---
Date of service: 09/30/24 Time of Service: 15:07 Pain Managment Procedure Note Procedure Note Procedure Note: Lumbar Interlaminar Epidural Steroid Injection ? Location: L4-5 ? Pre-procedure Diagnosis: M54.16- Radiculopathy, LUMBAR region ? Post-procedure Diagnosis:? The same as above ? Sedation:? ? None ? Medication: Depo-Medrol 80 mg, Omnipaque 1 mL ? Estimated blood loss:? less than 2 cc ? Surgeon:? Roberto Carlos Grey MD COMMENT: ? Procedure Detail:? The procedure and potential risks were explained to the patient and informed written consent was obtained. The patient was escorted to the procedure room and placed in the prone position. Pillows were utilized for proper positioning and comfort. Time out was performed in the procedure room with nursing staff confirming the patient's identity, procedure to be performed, allergies, and any blood thinning or anti-platelet medications.? The patient's neck and upper back was prepped with ChloraPrep and draped in a sterile fashion. Sterile technique was maintained throughout the procedure.? Sterile gloves were used, a face mask was worn, and new single dose vials of all medications were used with the top being swabbed with alcohol and given time to dry prior to withdrawal of medication. Lidocane 1% was used to anesthetize the skin.Using a 25-gauge 1.5 inch needle, 1% lidocaine was instilled into the superficial soft tissue overlying the targeted area to provide local anesthesia. With fluoroscopic guidance, a 17 -gauge Tuohy needle was advanced toward the interlaminar space of L4-5. The needle was then advance through the ligamentum flavum and into the posterior epidural space using the loss of resistance technique. Correct needle placement was confirmed through review of the AP and contralateral oblique fluoroscopic views. A 19-gauge arrow catheter was threaded cephalad to the Right Following negative aspiration, one cc of Omnipaque 240 contrast was injected which confirmed good flow throughout the epidural space and no evidence of vascular flow or flow into adjacent compartments. Next, following negative aspiration, 1 cc's of normal saline and 80mg of Depo-Medrol was injected. The needle was gently removed. The patient tolerated the procedure well and was transported to the recovery area for observation and discharge instructions. Permanent images saved and recorded. PAIN PRE-PROCEDURE 02/26 POST-PROCEDURE 11/28 Plan:? Follow up prn. COMMENT: Patient had seen Dr. Rand and waiting for neurology evaluation from Dr. Kingsley. Will repeat as needed.
[2024-09-30 14:49] VITALS: O2SAT 96
[2024-09-30 14:50] VITALS: O2SAT 95
[2024-09-30 15:00] VITALS: O2SAT 95
[2024-09-30] MEDS: Omnipaque 240 MG/ML 50 ML BTL IJ (15:06)
[2024-09-30] MEDS: methylPREDNISolone ACETATE 40 MG/ML VIAL IJ (15:06)
[2024-09-30] MEDS: Epidural Tray 1 EACH MC (15:07)
== END 2024-09-30 14:18 | disposition home or self-care (01) ==
LOC: PC 14:18
PROVIDERS: PCP Family Medicine; Visit Provider Anesthesiology Pain Medicine
DX: M54.50 Low back pain, unspecified (principal); M54.16 Radiculopathy, lumbar region
CPT/HCPCS: 00123; 62323; 72100; J1010; Q9967

== ENCOUNTER → 2024-10-13 09:40 | Outpatient (BNVA) | payer MEDICARE, SELFPAY | PROVIDERS: PCP Family Medicine; Referring Provider Family Medicine; Visit Provider Psychiatry & Neurology Neurology | DX: R73.9 Hyperglycemia, unspecified; G62.9 Polyneuropathy, unspecified; M48.061 Spinal stenosis, lumbar region without neurogenic claudication | CPT/HCPCS: 95885; 95887; 95909; 99215 ==

== ENCOUNTER 2024-10-13 12:06 | Outpatient (CLI) | payer MEDICARE, SELFPAY ==
[2024-10-13 12:32] LABS: Vitamin B12 725 pg/mL (193-986)
[2024-10-13 17:43] LABS: Hemoglobin A1C 5.3 % (<5.7)
[2024-10-14 12:17] LABS: Albumin 62.4 % (55.8-66.1); Albumin g/dL 4.7 g/dL (3.6-5.2); Total Protein 7.5 g/dL (6.3-8.2)
== END 2024-10-13 12:07 | disposition home or self-care (01) ==
LOC: LBO 12:07
PROVIDERS: PCP Family Medicine; Visit Provider Psychiatry & Neurology Neurology
DX: R73.9 Hyperglycemia, unspecified (principal); G62.9 Polyneuropathy, unspecified
CPT/HCPCS: 36415; 82607; 83036; 84165

== ENCOUNTER 2025-01-01 10:53 | Outpatient (CLI) | payer MEDICARE, SELFPAY ==
--- NOTE | 2025-01-01 09:00 | DI.RAD_ITS ---
Exam(s) XR SHOULDER LT COMPLETE 2+V EXAM: XR SHOULDER LT COMPLETE 2+V CLINICAL HISTORY: left shoulder pain M25.512 PAIN LEFT SHOULDER. TECHNIQUE: 2D digital imaging was performed. Three views. COMPARISON: No exams were available for comparison FINDINGS: BONES: No acute fracture is present. No bony destructive lesion is seen. JOINTS: No dislocation present. Glenohumeral joint space is maintained. There is mild spurring at t he margin of the glenoid and greater tuberosity. AC joint shows mild spurring. SOFT TISSUE: Normal. IMPRESSION: Mild degenerative changes. DATA REPOSITORY: RADIATION DOSE DELIVERED:
== END 2025-01-01 11:13 ==
LOC: DI 10:53
PROVIDERS: PCP Family Medicine; Visit Provider Family Medicine
DX: M25.512 Pain in left shoulder (principal)
CPT/HCPCS: 73030

== ENCOUNTER 2025-01-19 01:27 | Outpatient (CLI) | payer MEDICARE, SELFPAY ==
--- NOTE | 2025-01-19 14:20 | DI.MRI_ITS ---
Exam(s) MR UPPER JOINT LT WO EXAM: MR UPPER JOINT LT WO CLINICAL HISTORY: left shoulder pain despite PT,muscle tear, ligament tear,m25.512,T14.8xxa. TECHNIQUE: Multiplanar multisequence MRI was performed. COMPARISON: None. FINDINGS: BONES: There is no fracture or contusion pattern. None mild degenerative changes at the humeral hea d and glenoid. JOINTS:The acromioclavicular joint shows vzcb-yi-kqetzwej spurring and some fluid. There is apparent impingement on the supraspinatus muscle tendon junction. The glenohumeral joint is normal. TENDONS: Supraspinatus: Some thickening and intermediate signal in the anterior portion of the tendon, consist ent with tendinosis. Infraspinatus: Unremarkable. Subscapularis: Unremarkable. Teres Minor: Unremarkable. Biceps and [place]: Unremarkable. MUSCLES: Unremarkable. GLENOID LABRUM: Focal area of high signal in the anterior superior labrum could indicate small tear. SOFT TISSUES: Unremarkable. BURSAE: Subacromial and subdeltoid bursae shows a small amount of fluid which could indicate bursiti s. IMPRESSION: Degenerative changes of the AC joint appear to cause impingement on the distal supraspinatus muscle t endon junction. Small amount of fluid in the subacromial subdeltoid bursa could indicate bursitis. Supraspinatus tendinosis. Small anterosuperior labral tear. DATA REPOSITORY:
== END 2025-01-19 01:47 ==
LOC: DI 01:27
PROVIDERS: PCP Family Medicine; Visit Provider Family Medicine
DX: M75.22 Bicipital tendinitis, left shoulder (principal)
CPT/HCPCS: 73221

== ENCOUNTER → 2025-02-11 13:46 | Outpatient (BNVA) | payer MEDICARE, SELFPAY | PROVIDERS: PCP Family Medicine; Referring Provider Family Medicine; Visit Provider Student in an Organized Health Care Education/Training Program | DX: M19.012 Primary osteoarthritis, left shoulder (principal) | CPT/HCPCS: 20610; 99213; J1010 ==

== ENCOUNTER → 2025-03-03 10:48 | Outpatient (BNVA) | payer MEDICARE, SELFPAY | PROVIDERS: PCP Family Medicine; Referring Provider Family Medicine; Visit Provider Urology | DX: N20.0 Calculus of kidney (principal); N40.0 Benign prostatic hyperplasia without lower urinary tract symptoms; Z87.442 Personal history of urinary calculi | CPT/HCPCS: 76775 ==

== ENCOUNTER 2025-03-10 02:37 | Outpatient (CLI) | payer MEDICARE, SELFPAY ==
--- NOTE | 2025-03-10 06:30 | DI.CT_ITS ---
Exam(s) CT ABDOMEN PELVIS WO EXAM: CT ABDOMEN PELVIS WO CLINICAL HISTORY: kidney stones,n20.0. TECHNIQUE: Imaging Protocol: Axial computed tomography images with coronal and sagittal reformatted images were created and reviewed. COMPARISON: CT CT RENAL COLIC WO from 04/21/2022 US POCUS EXAM from 03/03/2025 FINDINGS: ABDOMEN: Lung Bases: Normal where visualized. Liver: Normal density. There is a stable cyst seen in the right lobe of the liver. Gallbladder and biliary tract: No radiodense calculus or biliary ductal dilation. Pancreas: Normal density, no abnormal calcifications or inflammatory process. Spleen: Calcified granuloma are seen in the spleen. Kidneys: Normal size, contour and axis.There is bilateral nephrolithiasis. There are 4 left renal ca lculi and 3 right renal calculi. The largest stone on the left measures 3 mm and is located in the l ower pole. The largest stones on the right measure 2-3 mm. There is no hydronephrosis. There are b ilateral stable renal cysts. The largest is seen in the superior pole of the right kidney and measur es 4.0 x 3.7 cm. No follow-up is recommended. Adrenal glands: No mass is seen. Lymph nodes: Within normal limits. Abdominal Aorta: Abdominal portion non-dilated. Atherosclerotic calcification is present. PELVIS: Bladder:The urinary bladder is incompletely distended but grossly unremarkable. No bladder stones ar e identified. Bowel: No obstruction or bowel wall thickening. There is no evidence of appendicitis. There is a shani cification in which may lie within the tip of the appendix suggesting appendicoliths. Peritoneal cavity: No ascites, collection or mesenteric inflammatory response. No free air. Reproductive organs: Mildly enlarged prostate gland. Bones: Within normal limits. Soft Tissues: Within normal limits. IMPRESSION: Bilateral nephrolithiasis. No evidence of obstructive uropathy. RADIATION DOSE DELIVERED: 476.84mGy.cm Total DLP DATA REPOSITORY: All CT scans at this facility are submitted to the National Radiology Data Registry (NRDR) Dose Index Registry (DIR) with the [employer] (A[employer]). RADIATION OPTIMIZATION: All CT scans at this facility use at least one of these dose optimization te chniques: automated exposure control; mA and/or kV adjustment per patient size (includes targeted exa ms where dose is matched to clinical indication); or iterative reconstruction.
== END 2025-03-10 02:57 ==
LOC: DI 02:37
PROVIDERS: PCP Family Medicine; Visit Provider Urology
DX: N20.0 Calculus of kidney (principal)
CPT/HCPCS: 74176

== ENCOUNTER 2025-06-10 09:38 | Outpatient (CLI) | payer MEDICARE, SELFPAY ==
[2025-06-10 09:51] VITALS: BP 131/87; PULSE 66; RESP 18; TEMP 36.6; O2SAT 97
[2025-06-10 10:13] VITALS: PULSE 58; O2SAT 93
[2025-06-10 10:15] VITALS: BP 144/105; PULSE 59; PULSE 61; RESP 25; O2SAT 96
[2025-06-10 10:20] VITALS: PULSE 58; PULSE 59; RESP 21; O2SAT 94
[2025-06-10 10:29] VITALS: BP 155/88; PULSE 57
--- NOTE | 2025-06-10 10:31 | DI.RAD_ITS ---
Exam(s) XR PAIN CLINIC LUMBAR SP 2V EXAM: XR PAIN CLINIC LUMBAR SP 2V CLINICAL HISTORY: Dx: Lumbar Radiculopathy TECHNIQUE: 2D and realtime digital imaging was performed. CONTRAST MATERIAL: Refer to procedure report. COMPARISON: No exams were available for comparison FINDINGS: Fluoroscopy was provided for Dr. Mascorro during the performance of a lumbar epidural steroid injection. Please refer to the procedure report for complete details. Ka,r=21.8 mGy IMPRESSION: RADIATION DOSE DELIVERED: 0.0 0.0 0
[2025-06-10] MEDS: methylPREDNISolone ACETATE 80 MG/ML VIAL IJ (10:32)
[2025-06-10] MEDS: Omnipaque 240 MG/ML 50 ML BTL IJ (10:32)
[2025-06-10] MEDS: Epidural Tray 1 EACH MC (10:32)
--- NOTE | 2025-06-10 11:03 | PDOC.PAIN ---
Date of service: 06/10/25 Time of Service: 11:04 Pain Managment Procedure Note Procedure Note Procedure Note: PROCEDURE NOTE LUMBAR EPIDURAL STEROID INJECTION Date of Service: June 10, 2025 Patient:Mark Burgos? Provider: Onesimo Mascorro DO, MPH Mark Eddy has been referred to the [facility] for a lumbar epidural steroid injection. Pre-operative diagnosis: Lumbosacral Radiculopathy ICD-10 M54.16 Post-operative diagnosis: Same Pre-Procedure Pain: VAS= 6 /10 Comments: He previously had this procedure and had >50% pain relief for >4 months. Mark was interviewed and the medical record was reviewed.? There were no medical, pharmacologic, radiographic or other structural contraindications to attempting fluoroscopically guided Lumbar epidural steroid injection.? Risks, potential side effects, indications, and potential benefits of the procedure were reviewed with Mark.? Questions and concerns were addressed.? After it was clear that Mark was fully informed about the procedure, the printed consent form was signed by the patient and myself.? Mark was placed in the prone position on the fluoroscopy table and automated blood pressure cuff and pulse oximeter applied. The skin entry point for entering/approaching the epidural space for the lumbar epidural steroid injection was marked. Following thorough chlorhexadine preparation of the skin and draping and 1% lidocaine infiltration of the skin entry point and subcutaneous tissues, an 18 gauge Touhy needle was placed and advanced under fluoroscopic guidance and with loss of resistance technique into the L4-L5 epidural space. Needle tip placement and depth were aided and confirmed by fluoroscopy. There was no paresthesia or return of blood or CSF through the needle. 1 mls of Omnipaque 240 was injected with clear epidural spread confirmed with fluoroscopy. 80 mg of Depo-Medrol was? injected. This was followed by 1 ml of preservative-free normal saline to flush the steroid out of the needle. There was no unusual discomfort expressed by Mark. The needle was withdrawn without difficulty. (49 mls of Omnipaque was wasted) Mark was observed and was without hemodynamic, neurologic, or allergic reactions.? Fluoroscopic images were digitally archived. Mark's vital signs were stable throughout the procedure and were as recorded in nursing records. Follow up plans and appointments were discussed with Mark. Post procedure instruction was given as documented in nursing records and having met discharge criteria Mark was discharged from the [facility]. COMMENTS: No apparent complications. Post-procedure pain: VAS= 0/10. Mark to contact [facility] as needed. If at least 50% improvement in pain and/or function for at least 3 months is achieved, this procedure can be repeated. Please note that his epidural space is far deeper than normal. I personally performed this entire procedure. ONESIMO MASCORRO DO, MPH ABPMR-subspecialty board certification in Pain Medicine [facility] Coding Conscious Sedation used for procedure: No CPT Codes: Inj Spine L/S w/Imaging - 60810 ([id number] ~G) Additional Codes: Date of Service (78171) Date of service: 06/10/25 Diagnoses: Lumbosacral radiculopathy
== END 2025-06-10 09:39 | disposition home or self-care (01) ==
LOC: PC 09:38
PROVIDERS: PCP Family Medicine; Visit Provider Preventive Medicine Occupational Medicine
DX: M54.50 Low back pain, unspecified (principal); M54.16 Radiculopathy, lumbar region
CPT/HCPCS: 62323; 72100; J1010; Q9967

== ENCOUNTER 2025-06-17 03:04 | Outpatient (CLI) | payer MEDICARE, SELFPAY ==
--- NOTE | 2025-06-17 06:30 | DI.RAD_ITS ---
Exam(s) XR SHOULDER RT COMPLETE 2+V EXAM: XR SHOULDER RT COMPLETE 2+V CLINICAL HISTORY: R shoulder pain, M25.511. TECHNIQUE: 2D digital imaging was performed. Five views. COMPARISON: None FINDINGS: BONES: No acute fracture is present. No bony destructive lesion is seen. Anterior acromial hook. JOINTS: No dislocation present. Mild degenerative changes of the glenohumeral joint and AC joint. SOFT TISSUE: Normal. IMPRESSION: Mild degenerative changes. DATA REPOSITORY: RADIATION DOSE DELIVERED:
== END 2025-06-17 03:24 ==
LOC: DI 03:04
PROVIDERS: PCP Family Medicine; Visit Provider Family Medicine
DX: M25.511 Pain in right shoulder (principal)
CPT/HCPCS: 73030

== ENCOUNTER → 2025-07-08 14:17 | Outpatient (BNVA) | payer MEDICARE, SELFPAY | PROVIDERS: PCP Family Medicine; Referring Provider Family Medicine; Visit Provider Student in an Organized Health Care Education/Training Program | DX: M25.511 Pain in right shoulder (principal) | CPT/HCPCS: 20610; J1010 ==